=== PATIENT | male | born 1955 | race African-American/Black ===

== ENCOUNTER 2016-03-15 13:41 | Inpatient (IN) | payer OTHER ==
[2016-03-15 14:58] VITALS: BMI 26.3
--- NOTE | 2016-03-15 17:12 | HP ---
CIWA Score - CIWA Score Nausea/Vomitin Muscle Tremors: 3 Anxiety: 3 Agitation: 3 Paroxysmal Sweats: 1-Minimal Palms Moist Orientation: 0-Oriented Tacttile Disturbances: 2-Mild Itch/Numbness/Burn Auditory Disturbances: 2-Mild Harshness/Frighten Visual Disturbances: 2-Mild Sensitivity Headache: 2-Mild CIWA-Ar Total Score: 21 Admission ROS [facility] - HPI Chief Complaint: i need help to stop drinking alcohol Allergies/Adverse Reactions: Allergies Allergy/AdvReac Type Severity Reaction Status Date / Time No Known Allergies Allergy Verified 02/29/16 14:34 History of Present Illness: this 60 years old male with alcohol dependence,withdrawal symptom,last detox [facility] 01/11/16 to 01/15/16 nicotine dependence longest sobriety 10 years hypertension asthma hyperlipidemia seizure syncope positive ppd Exam Limitations: No Limitations - Ebola screening Have you traveled outside of the country in the last 21 days: No Have you had contact with anyone from an Ebola affected area: No Have you been sick,other than usual withdrawal symptoms: No Do you have a fever: No - Review of Systems Constitutional: Loss of Appetite, Malaise, Night Sweats, Changes in sleep, Weakness EENT: reports: Nose Congestion Respiratory: reports: No Symptoms reported Cardiac: reports: Palpitations GI: reports: Diarrhea, Nausea, Vomiting, Abdominal cramping : reports: No Symptoms Reported Musculoskeletal: reports: Back Pain, Muscle Pain Integumentary: reports: Dryness Neuro: reports: Headache, Tremors Endocrine: reports: No Symptoms Reported Hematology: reports: No Symptoms Reported Psychiatric: reports: No Sypmtoms Reported Patient History - Patient Medical History Hx Anemia: No Hx Asthma: No Hx Chronic Obstructive Pulmonary Disease (COPD): No Hx Cancer: No Hx Cardiac Disorders: No Hx Congestive Heart Failure: No Hx Hypertension: No Hx Hypercholesterolemia: No Hx Pacemaker: No HX Cerebrovascular Accident: No Hx Seizures: Yes (last 01/22) Hx Dementia: No Hx Diabetes: Yes (no medication) Hx Gastrointestinal Disorders: No Hx Liver Disease: No Hx Genitourinary Disorders: No Hx Sexually Transmitted Disorders: No Hx Renal Disease (ESRD): No Hx Thyroid Disease: No Hx Human Immunodeficiency Virus (HIV): No (never been tested for hiv) Hx Hepatitis C: No Hx Depression: No Hx Suicide Attempt: No Hx Bipolar Disorder: No Hx Schizophrenia: No Other Medical History: no suicidal,no homicidal - Patient Surgical History Past Surgical History: No Hx Neurologic Surgery: No Hx Cataract Extraction: No Hx Cardiac Surgery: No Hx Lung Surgery: No Hx Breast Surgery: No Hx Breast Biopsy: No Hx Abdominal Surgery: No Hx Appendectomy: No Hx Cholecystectomy: No Hx Genitourinary Surgery: No Hx Section: No Hx Orthopedic Surgery: No Anesthesia Reaction: No - PPD History Previous Implant?: Yes Documented Results: Negative w/o proof Implanted On Prior [facility] Admission?: No PPD to be Administered?: Yes - Smoking Cessation Smoking history: Current every day smoker Have you smoked in the past 12 months: Yes Aproximately how many cigarettes per day: 5 Hx Chewing Tobacco Use: No Initiated information on smoking cessation: Yes 'Breaking Loose' booklet given: 03/15/16 - Substance & Tx. History Hx Alcohol Use: Yes Hx Substance Use: No Substance Use Type: Alcohol Hx Substance Use Treatment: Yes ([facility] 01/11/16 to 01/14/15) - Substances Abused Alcohol Route: Oral Frequency: Daily Amount used: 1 pint of vodka Age of first use: 24 Date of Last Use: 03/15/16 Family Disease History - Family Disease History Family History: Denies Admission Physical Exam S - Vital Signs Vital Signs: Vital Signs - 24 hr 03/15/16 14:56 Temperature 97.7 F Pulse Rate 118 H Respiratory 18 Rate Blood Pressure 138/82 - Physical General Appearance: Yes: Moderate Distress, Tremorous, Irritable, Sweating, Anxious HEENTM: Yes: Rhinorrhea Respiratory: Yes: Lungs Clear Neck: Yes: Within Normal Limits Breast: Yes: Within Normal Limits Cardiology: Yes: Within Normal Limits, Regular Rhythm, Regular Rate, S1, S2 Abdominal: Yes: Normal Bowel Sounds, Non Tender, Flat, Soft Genitourinary: Yes: Within Normal Limits Back: Yes: Muscle Spasm Musculoskeletal: Yes: Muscle Pain Extremities: Yes: Tremors Neurological: Yes: health plan specialist II-XII NML intact, Alert, Motor Strength 5/5 Integumentary: Yes: Dry Lymphatic: Yes: Within Normal Limits - Diagnostic (1) Alcohol dependence with uncomplicated withdrawal Current Visit: No Status: Acute (2) Alcohol withdrawal seizure Current Visit: No Status: Acute Qualifiers: Complication of substance-induced condition: with unspecified complication Qualified Code(s): F10.239 - Alcohol dependence with withdrawal, unspecified; R56.9 - Unspecified convulsions (3) Hx of falling, presenting hazards to health Current Visit: No Status: Acute (4) Positive PPD, treated Current Visit: No Status: Acute (5) DM Diabetes mellitus type 2 Current Visit: No Status: Chronic (6) Essential hypertension Current Visit: No Status: Chronic (7) Hyperlipidemia Current Visit: No Status: Chronic Qualifiers: Hyperlipidemia type: unspecified Qualified Code(s): E78.5 - Hyperlipidemia, unspecified (8) Syncope Current Visit: No Status: Chronic (9) Weight loss Current Visit: No Status: Chronic Cleared for Admission S - Detox or Rehab [facility] Level of Care: Medically Managed Detox Regimen/Protocol: Librium S Breath Alcohol Content Breath Alcohol Content: 0.138 Urine Drug Screen - Results Drug Screen Negative: No Urine Drug Screen Results: BZO-Benzodiazepines, TCA-Tricyclic Antidepress
[2016-03-15] MEDS ORDERED: ACETAMINOPHEN 325 MG TABLET (FP) PO PRN (17:31)
[2016-03-15] MEDS ORDERED: MENTHOL/PHENOL 1 EACH UD MM PRN (17:31)
[2016-03-15] MEDS ORDERED: IBUPROFEN 400 MG TABLET (FP) PO PRN (17:31)
[2016-03-15] MEDS ORDERED: hydrOXYzine PAMOATE 25 MG CAPSULE (FP) PO PRN (17:31)
[2016-03-15] MEDS ORDERED: MAG HYDROX/AL HYDROX/SIMETH 30 ML UNIT-DOSE CUP PO PRN (17:31)
[2016-03-15] MEDS ORDERED: chlordiazePOXIDE HCL 25 MG CAPSULE PO ONE (17:31)
[2016-03-15] MEDS ORDERED: LOPERAMIDE HCL 2 MG CAPSULE PO PRN (17:31)
[2016-03-15] MEDS ORDERED: guaiFENesin/D-METHORPHAN HB 10 ML UNIT-DOSE CUPS PO PRN (17:31)
[2016-03-15] MEDS ORDERED: MAGNESIUM CITRATE 300 ML BOTTLE PO PRN (17:31)
[2016-03-15] MEDS ORDERED: P-EPHED 60MG/TRIPROLIDI 2.5MG TABLET PO PRN (17:31)
[2016-03-15] MEDS ORDERED: MAGNESIUM HYDROX 2400MG/30ML ORAL SUSPENSION 30 ML CUP PO PRN (17:31)
[2016-03-15] MEDS ORDERED: chlordiazePOXIDE HCL 25 MG CAPSULE PO PRN (17:31)
[2016-03-15] MEDS: diphenhydrAMINE HCL 50 MG CAPSULE PO PRN (22:31)
[2016-03-15] MEDS: THIAMINE HCL 100 MG TABLET (FP) PO SCH (22:31)
[2016-03-15] MEDS: chlordiazePOXIDE HCL 25 MG CAPSULE PO SCH (22:31)
[2016-03-16] MEDS: chlordiazePOXIDE HCL 25 MG CAPSULE PO SCH ×4 (05:30→22:11)
[2016-03-16] MEDS: PRENATAL VITAMINS W/ FOLIC ACID TABLET (FP) PO SCH (10:21)
[2016-03-16 10:27] LABS: MCH 34.4 pg (25.7-33.7); MCHC 34.3 g/dl (32.0-35.9); MEAN CELL VOLUME 100.4 fl (80-96); MEAN PLT VOLUME 7.9 fl (7.5-11.1); PLATELET COUNT 199 K/MM3 (134-434); RDW 15.5 % (11.9-15.9); WHITE BLOOD COUNT 3.3 K/mm3 (4.0-10.0)
[2016-03-16 10:47] LABS: ALBUMIN 3.6 g/dl (3.4-5.0); ANION GAP 8 (8-16); CALCIUM 8.8 mg/dL (8.5-10.1); CO2 30 mmol/L (21-32); GLUCOSE,RANDOM 108 mg/dL (74-106)
[2016-03-16 10:50] LABS: ALK PHOS 95 U/L (45-117); BILIRUBIN,TOTAL 0.8 mg/dL (0.2-1.0); CHOLESTEROL 178 mg/dL (50-200); CREATININE 0.8 mg/dL (0.7-1.3); LDL CHOLESTEROL (ONLY SJRH) 76 mg/dL (5-100); SGOT/AST 11 U/L (15-37); SGPT/ALT 17 U/L (12-78); TOT PROT 6.8 g/dl (6.4-8.2)
--- NOTE | 2016-03-16 13:21 | PN ---
S CIWA - CIWA Score Nausea/Vomitin-Mild Nausea/No Vomiting Muscle Tremors: 3 Anxiety: 4-Mod. Anxious/Guarded Agitation: 4-Moderately Restless Paroxysmal Sweats: No Perspiration Orientation: 0-Oriented Tacttile Disturbances: 1-Very Mild Itch/Numbness Auditory Disturbances: 0-None Visual Disturbances: 0-None Headache: 1-Very Mild CIWA-Ar Total Score: 14 BHS Progress Note (SOAP) Subjective: Anxiety, sweating, tremors, interrupted sleep, right sided pain x 1 month relieved with motrin (patient stated he was already evaluated in [facility] ER for said pain . Pain scale presently 6/10; he reports not drinking much water. Objective: 03/16/16 13:20 Last Vital Signs Temp Pulse Resp BP Pulse Ox 96 F L 114 H 20 127/85 03/16/16 10:49 03/16/16 10:49 03/16/16 10:49 03/16/16 10:49 Tachycardia noted Laboratory Tests 03/16/16 03/16/16 03/16/16 05:29 08:00 08:00 WBC 3.3 L RBC 4.71 Hgb 16.2 D Hct 47.3 MCV 100.4 H MCHC 34.3 RDW 15.5 D Plt Count 199 D MPV 7.9 Sodium 143 Potassium 3.7 D Chloride 105 Carbon Dioxide 30 Anion Gap 8 BUN 9 D Creatinine 0.8 D Creat Clearance w eGFR > 60 POC Glucometer 136 Random Glucose 108 H Calcium 8.8 Total Bilirubin 0.8 D AST 11 L D ALT 17 D Alkaline Phosphatase 95 Total Protein 6.8 D Albumin 3.6 Triglycerides 73 Cholesterol 178 Total LDL Cholesterol 76 HDL Cholesterol 92 H RPR Titer 03/16/16 03/16/16 08:00 08:00 WBC RBC Hgb Hct MCV MCHC RDW Plt Count MPV Sodium Potassium Chloride Carbon Dioxide Anion Gap BUN Creatinine Creat Clearance w eGFR POC Glucometer Random Glucose Calcium Total Bilirubin AST ALT Alkaline Phosphatase Total Protein Albumin Triglycerides Cancelled Cholesterol Cancelled Total LDL Cholesterol Cancelled HDL Cholesterol Cancelled RPR Titer Nonreactive Labs noted: serum glucose 108mg/dl PE:Resp: lungs ctab/l, no adventitious breath sounds CV: s1s2+, apical rate 104 bpm, no m/g/r Back: no CVAT B/L Skin: warm to touch, dry Gait: steady Assessment: 03/16/16 13:21 Withdrawal symptoms Tachycardia Right sided pain, acute Hyperglycemia Plan: Continue detox Tachycardia: most likely due to withdrawal Sxs and anxiety, encouraged to drink lots of water, continue protocol, continue to monitor Right sided pain: encouraged to take motrin prn, continue to monitor Hyperglycemia: HbA1c in AM, finger stick ac meal, change diet to diabetic if warranted, UA in AM, novolog insulin sliding scale with coverage
[2016-03-16] MEDS: INSULIN SLIDING SCALE (NOVOLOG) 1 VIAL SQ SCH (17:44)
[2016-03-16] MEDS: THIAMINE HCL 100 MG TABLET (FP) PO SCH (22:11)
[2016-03-16] MEDS: diphenhydrAMINE HCL 50 MG CAPSULE PO PRN (22:11)
[2016-03-17] MEDS: chlordiazePOXIDE HCL 25 MG CAPSULE PO SCH ×3 (05:33→16:56)
[2016-03-17] MEDS: INSULIN SLIDING SCALE (NOVOLOG) 1 VIAL SQ SCH ×3 (06:12→16:30)
[2016-03-17] MEDS: PRENATAL VITAMINS W/ FOLIC ACID TABLET (FP) PO SCH (10:14)
--- NOTE | 2016-03-17 11:31 | PN ---
[facility] CIWA - CIWA Score Nausea/Vomitin Muscle Tremors: 3 Anxiety: 3 Agitation: 2 Paroxysmal Sweats: 1-Minimal Palms Moist Orientation: 0-Oriented Tacttile Disturbances: 1-Very Mild Itch/Numbness Auditory Disturbances: 1-Very Mild Visual Disturbances: 1-Very Mild Sensitivity Headache: 2-Mild CIWA-Ar Total Score: 17 BHS Progress Note (SOAP) Subjective: ALERT,IRRITABLE,ANXIOUS,INTERRUPTED SLEEP Objective: 03/17/16 11:30 Vital Signs Temperature 97.2 F L 03/17/16 09:50 Pulse Rate 110 H 03/17/16 09:50 Respiratory Rate 19 03/17/16 09:50 Blood Pressure 116/81 03/17/16 09:50 O2 Sat by Pulse Oximetry (%) Laboratory Last Values WBC 3.3 K/mm3 (4.0-10.0) L 03/16/16 08:00 RBC 4.71 M/mm3 (4.00-5.60) 03/16/16 08:00 Hgb 16.2 GM/dL (11.7-16.9) D 03/16/16 08:00 Hct 47.3 % (35.4-49) 03/16/16 08:00 MCV 100.4 fl (80-96) H 03/16/16 08:00 MCHC 34.3 g/dl (32.0-35.9) 03/16/16 08:00 RDW 15.5 % (11.9-15.9) D 03/16/16 08:00 Plt Count 199 K/MM3 (134-434) D 03/16/16 08:00 MPV 7.9 fl (7.5-11.1) 03/16/16 08:00 Sodium 143 mmol/L (136-145) 03/16/16 08:00 Potassium 3.7 mmol/L (3.5-5.1) D 03/16/16 08:00 Chloride 105 mmol/L (98-107) 03/16/16 08:00 Carbon Dioxide 30 mmol/L (21-32) 03/16/16 08:00 Anion Gap 8 (8-16) 03/16/16 08:00 BUN 9 mg/dL (7-18) D 03/16/16 08:00 Creatinine 0.8 mg/dL (0.7-1.3) D 03/16/16 08:00 Creat Clearance w eGFR > 60 (>60) 03/16/16 08:00 POC Glucometer 138 UNITS (()) 03/17/16 05:32 Random Glucose 108 mg/dL (74-106) H 03/16/16 08:00 Hemoglobin A1c % 6.0 % (4.8-6.0) D 03/17/16 06:30 Calcium 8.8 mg/dL (8.5-10.1) 03/16/16 08:00 Total Bilirubin 0.8 mg/dL (0.2-1.0) D 03/16/16 08:00 AST 11 U/L (15-37) L D 03/16/16 08:00 ALT 17 U/L (12-78) D 03/16/16 08:00 Alkaline Phosphatase 95 U/L (45-117) 03/16/16 08:00 Total Protein 6.8 g/dl (6.4-8.2) D 03/16/16 08:00 Albumin 3.6 g/dl (3.4-5.0) 03/16/16 08:00 Triglycerides 73 mg/dL (35-160) 03/16/16 08:00 Cholesterol 178 mg/dL (50-200) 03/16/16 08:00 Total LDL Cholesterol 76 mg/dL (5-100) 03/16/16 08:00 HDL Cholesterol 92 mg/dL (40-60) H 03/16/16 08:00 RPR Titer Nonreactive (NONREACTIVE) 03/16/16 08:00 Assessment: 03/17/16 11:31 WITHDRAWAL SYMPTOM Plan: CONTINUE DETOX
[2016-03-17 16:33] LABS: URINE APPEARANCE SLCLOUDY; URINE BILIRUBIN NEGATIVE (NEGATIVE); URINE BLOOD NEGATIVE (NEGATIVE); URINE COLOR YELLOW; URINE GLUCOSE (UA) NEGATIVE (NEGATIVE); URINE KETONE NEGATIVE (NEGATIVE); URINE LEUK ESTERASE NEGATIVE (NEGATIVE); URINE NITRITE NEGATIVE (NEGATIVE); URINE PROTEIN NEGATIVE (NEGATIVE); URINE UROBILINOGEN NEGATIVE E.U./dl (0.2-1.0)
[2016-03-17] MEDS: diphenhydrAMINE HCL 50 MG CAPSULE PO PRN (22:02)
[2016-03-17] MEDS: chlordiazePOXIDE 5 MG CAPSULE PO SCH (22:02)
[2016-03-17] MEDS: THIAMINE HCL 100 MG TABLET (FP) PO SCH (22:02)
[2016-03-18] MEDS: chlordiazePOXIDE 5 MG CAPSULE PO SCH ×3 (05:34→17:31)
[2016-03-18] MEDS: INSULIN SLIDING SCALE (NOVOLOG) 1 VIAL SQ SCH ×3 (06:12→16:39)
--- NOTE | 2016-03-18 09:52 | PN ---
S Progress Note (SOAP) Subjective: ALERT,IRRITABLE,ANXIOUS,INTERRUPTED SLEEP Objective: 03/18/16 09:50 Vital Signs Temperature 95.8 F L 03/18/16 09:32 Pulse Rate 112 H 03/18/16 09:32 Respiratory Rate 18 03/18/16 09:32 Blood Pressure 105/73 03/18/16 09:32 O2 Sat by Pulse Oximetry (%) 03/18/16 09:51 BGM 146 Assessment: 03/18/16 09:51 WITHDRAWAL SYMPTOM Plan: CONTINUE DETOX,BGM MONITORING,DISCHARGE IN AM
[2016-03-18] MEDS: PRENATAL VITAMINS W/ FOLIC ACID TABLET (FP) PO SCH (10:35)
[2016-03-18] MEDS: THIAMINE HCL 100 MG TABLET (FP) PO SCH (22:10)
[2016-03-18] MEDS: diphenhydrAMINE HCL 50 MG CAPSULE PO PRN (22:10)
[2016-03-18] MEDS: chlordiazePOXIDE HCL 10 MG CAPSULE PO SCH (22:10)
[2016-03-19] MEDS: chlordiazePOXIDE HCL 10 MG CAPSULE PO SCH (05:28)
[2016-03-19 06:27] VITALS: BP 105/74; PULSE 92; TEMP 97
[2016-03-19] MEDS: INSULIN SLIDING SCALE (NOVOLOG) 1 VIAL SQ SCH (06:37)
--- NOTE | 2016-03-19 08:12 | PN ---
S Progress Note (SOAP) Subjective: alert,no complaint Objective: 03/19/16 08:10 detox completed,no withdrawal symptom 03/19/16 08:11 Assessment: 03/19/16 08:11 Vital Signs Temperature 97 F L 03/19/16 06:26 Pulse Rate 92 H 03/19/16 06:26 Respiratory Rate 16 03/19/16 06:26 Blood Pressure 105/74 03/19/16 06:26 O2 Sat by Pulse Oximetry (%) Plan: discharge today,follow up with after care program as arrangement
--- NOTE | 2016-03-19 08:16 | DS ---
[facility] Detox Discharge Summary Admission Date: 03/15/16 Discharge Date: 03/26/16 - History Present History: Alcohol Dependence Additional Comments: follow up with after [facility] program as arrangement and pmd for medical problems Pertinent Past History: type 2 dm essential hypertension hyperlipedemia seizure alcohol related syncope positive ppd weight loss frequent falls - Physical Exam Results Vital Signs: Vital Signs Temperature 97 F L 03/19/16 06:26 Pulse Rate 92 H 03/19/16 06:26 Respiratory Rate 16 03/19/16 06:26 Blood Pressure 105/74 03/19/16 06:26 O2 Sat by Pulse Oximetry (%) Pertinent Admission Physical Exam Findings: withdrawal symptom - Treatment Hospital Course: Detox Protocol Followed, Detoxed Safely, Discharged Condition Good Patient has Accepted a Rehab Referral to: [facility] - Medication Discharge Medications: Ambulatory Orders NK [No Known Home Medication] 01/11/16 - Diagnosis (1) Alcohol dependence with uncomplicated withdrawal Current Visit: No Status: Acute (2) Alcohol withdrawal seizure Current Visit: No Status: Acute Qualifiers: Complication of substance-induced condition: with unspecified complication Qualified Code(s): F10.239 - Alcohol dependence with withdrawal, unspecified; R56.9 - Unspecified convulsions (3) Hx of falling, presenting hazards to health Current Visit: No Status: Acute (4) Positive PPD, treated Current Visit: No Status: Acute (5) DM Diabetes mellitus type 2 Current Visit: No Status: Chronic (6) Essential hypertension Current Visit: No Status: Chronic (7) Hyperlipidemia Current Visit: No Status: Chronic Qualifiers: Hyperlipidemia type: unspecified Qualified Code(s): E78.5 - Hyperlipidemia, unspecified (8) Syncope Current Visit: No Status: Chronic (9) Weight loss Current Visit: No Status: Chronic - AMA Did Patient Leave Against Medical Advice: No
--- NOTE | 2016-03-19 09:45 | EKG ---
Test Reason : Blood Pressure : / mmHG Vent. Rate : 098 BPM Atrial Rate : 098 BPM P-R Int : 136 ms QRS Dur : 080 ms QT Int : 336 ms P-R-T Axes : 074 087 078 degrees QTc Int : 428 ms NORMAL SINUS RHYTHM POSSIBLE LEFT ATRIAL ENLARGEMENT BORDERLINE ECG WHEN COMPARED WITH ECG OF 01-MAR-2016 09:56, NO SIGNIFICANT CHANGE WAS FOUND Confirmed by NEPTALI HOFF MD ([id number]) on 03/19/2016 9:45:07 AM Referred By: Confirmed By:NEPTALI HOFF MD
== END 2016-03-19 08:55 | disposition home or self-care (01) | DRG 775 ==
LOC: YASAS 13:41 → Y3N 17:19
PROVIDERS: ADMIT Internal Medicine; ATTEND Internal Medicine
PROC: HZ2ZZZZ Detoxification Services for Substance Abuse Treatment (ICD-10-PCS; principal; 2016-03-15)
DX: F10.230 Alcohol dependence with withdrawal, uncomplicated (principal); F17.210 Nicotine dependence, cigarettes, uncomplicated; E11.65 Type 2 diabetes mellitus with hyperglycemia; I10 Essential (primary) hypertension; J45.909 Unspecified asthma, uncomplicated; E78.5 Hyperlipidemia, unspecified; R00.0 Tachycardia, unspecified; R76.11 Nonspecific reaction to tuberculin skin test without active tuberculosis; Z91.81 History of falling; Z86.79 Personal history of other diseases of the circulatory system; Z87.898 Personal history of other specified conditions; Z86.69 Personal history of other diseases of the nervous system and sense organs
CPT/HCPCS: 36415; 80053; 80061; 81003; 83036; 83721; 85027; 86593; 93005; 93010

== ENCOUNTER 2016-07-21 13:26 | Inpatient (IN) | payer OTHER ==
[2016-07-21 16:42] VITALS: BMI 26.4
--- NOTE | 2016-07-21 17:06 | HP ---
CIWA Score - CIWA Score Nausea/Vomitin-No Nausea/No Vomiting Muscle Tremors: 4-Moderate,w/Arms Extend Anxiety: 4-Mod. Anxious/Guarded Agitation: 4-Moderately Restless Paroxysmal Sweats: 1-Minimal Palms Moist Orientation: 3-Disoriented Date>2 days Tacttile Disturbances: 0-None Auditory Disturbances: 0-None Visual Disturbances: 0-None Headache: 1-Very Mild CIWA-Ar Total Score: 17 Admission [facility] - HPI Chief Complaint: WITHDRAWAL SX Allergies/Adverse Reactions: Allergies Allergy/AdvReac Type Severity Reaction Status Date / Time No Known Allergies Allergy Verified 07/21/16 17:07 History of Present Illness: 60 YEARS OLD MALE WITH LONG HISTORY OF ALCOHOL NICOTINE DEPENDENCE HAS POSITIVE PPD, DENIES HISTORY OF HYPERTENSION, DENIES HISTORY OF DIABETES II, DENIES HISTORY OF HYPERLIPIDEMIA, DENIES PSYCHIATRIC ISSUE, HAS ALCOHOL WITHDRAWAL RELATED SEIZURE LAST EPISODE 02/2016 IS ADMITTED TO DETOX Exam Limitations: No Limitations - Ebola screening Have you traveled outside of the country in the last 21 days: No Have you had contact with anyone from an Ebola affected area: No Have you been sick,other than usual withdrawal symptoms: No Do you have a fever: No - Review of Systems Constitutional: Chills, Changes in sleep, Weight Stable EENT: reports: Other (EYE GLASSES) Respiratory: reports: No Symptoms reported Cardiac: reports: No Symptoms Reported GI: reports: Nausea, Poor Fluid Intake, Abdominal cramping : reports: No Symptoms Reported Musculoskeletal: reports: No Symptoms Reported Integumentary: reports: No Symptoms Reported Neuro: reports: Seizure (ALCOHOL WITHDRAWAL RELATED), Tremors Endocrine: reports: No Symptoms Reported Hematology: reports: No Symptoms Reported Psychiatric: reports: Judgement Intact, Mood/Affect Appropiate Other Systems: Reviewed and Negative Patient History - Patient Medical History Hx Anemia: No Hx Asthma: No Hx Chronic Obstructive Pulmonary Disease (COPD): No Hx Cancer: No Hx Cardiac Disorders: No Hx Congestive Heart Failure: No Hx Hypertension: No (DENIES HISTORY OF HYPERTENSION) Hx Hypercholesterolemia: No (DENIES HISTORY OF HYPERLIPIDEMIA) Hx Pacemaker: No HX Cerebrovascular Accident: No Hx Seizures: Yes (last 01/22) Hx Dementia: No Hx Diabetes: No (no medication DENIES HAVING DIABETES ) Hx Gastrointestinal Disorders: No Hx Liver Disease: No Hx Genitourinary Disorders: No Hx Sexually Transmitted Disorders: No Hx Renal Disease (ESRD): No Hx Thyroid Disease: No Hx Human Immunodeficiency Virus (HIV): No (never been tested for hiv) Hx Hepatitis C: No Hx Depression: No Hx Suicide Attempt: No Hx Bipolar Disorder: No Hx Schizophrenia: No - Patient Surgical History Past Surgical History: No Hx Neurologic Surgery: No Hx Cataract Extraction: No Hx Cardiac Surgery: No Hx Lung Surgery: No Hx Breast Surgery: No Hx Breast Biopsy: No Hx Abdominal Surgery: No Hx Appendectomy: No Hx Cholecystectomy: No Hx Genitourinary Surgery: No Hx Orthopedic Surgery: No Anesthesia Reaction: No - PPD History Previous Implant?: Yes Documented Results: Positive w/proof Implanted On Prior R Admission?: No PPD to be Administered?: No - Smoking Cessation Smoking history: Current every day smoker Have you smoked in the past 12 months: Yes Aproximately how many cigarettes per day: 5 Cigars Per Day: 0 Hx Chewing Tobacco Use: No Initiated information on smoking cessation: Yes 'Breaking Loose' booklet given: 07/21/16 - Substance & Tx. History Hx Alcohol Use: Yes Hx Substance Use: No Substance Use Type: Alcohol Hx Substance Use Treatment: Yes - Substances Abused Alcohol-vodka Route: Oral Frequency: Daily Amount used: 1 pt. Age of first use: 24 Date of Last Use: 07/21/16 Family Disease History - Family Disease History Family Disease History: Other: Father (), Mother () Other Family History: ONLY CHILD Admission Physical Exam BHS - Vital Signs Vital Signs: Vital Signs - 24 hr 07/21/16 16:39 Temperature 98.7 F Pulse Rate 118 H Respiratory 18 Rate Blood Pressure 152/74 - Physical General Appearance: Yes: Nourished, Appropriately Dressed, Moderate Distress, Tremorous, Irritable, Sweating, Anxious HEENTM: Yes: Hearing grossly Normal, Normal ENT Inspection, Normocephalic, Normal Voice Respiratory: Yes: Chest Non-Tender, Lungs Clear, Normal Breath Sounds, No Respiratory Distress, No Accessory Muscle Use Neck: Yes: Supple, Trachea in good position Breast: Yes: Breasts Symetrical Cardiology: Yes: Regular Rhythm, S1, S2, Tachycardia Abdominal: Yes: Non Tender, Soft Genitourinary: Yes: Within Normal Limits Back: Yes: Normal Inspection Musculoskeletal: Yes: full range of Motion, Gait Steady Extremities: Yes: Normal Inspection, Normal Range of Motion, Non-Tender, Tremors Neurological: Yes: Alert, Motor Strength 5/5, Normal Mood/Affect, Normal Response Integumentary: Yes: Warm Lymphatic: Yes: Within Normal Limits - Diagnostic (1) Alcohol dependence with uncomplicated withdrawal Current Visit: Yes Status: Acute (2) Positive PPD, treated Current Visit: Yes Status: Resolved Cleared for Admission [facility] - Detox or Rehab [facility] Level of Care: Medically Managed Detox Regimen/Protocol: Librium S Breath Alcohol Content Breath Alcohol Content: 0.108 Urine Drug Screen - Results Drug Screen Negative: Yes
[2016-07-21] MEDS ORDERED: LOPERAMIDE HCL 2 MG CAPSULE PO PRN (17:21)
[2016-07-21] MEDS ORDERED: chlordiazePOXIDE HCL 25 MG CAPSULE PO PRN (17:21)
[2016-07-21] MEDS ORDERED: NICOTINE POLACRILEX 2 MG GUM BUC PRN (17:21)
[2016-07-21] MEDS ORDERED: hydrOXYzine PAMOATE 50 MG CAPSULE (FP) PO PRN (17:21)
[2016-07-21] MEDS ORDERED: guaiFENesin/D-METHORPHAN HB 10 ML UNIT-DOSE CUPS PO PRN (17:21)
[2016-07-21] MEDS ORDERED: MAG HYDROX/AL HYDROX/SIMETH 30 ML UNIT-DOSE CUP PO PRN (17:21)
[2016-07-21] MEDS ORDERED: IBUPROFEN 400 MG TABLET (FP) PO PRN (17:21)
[2016-07-21] MEDS ORDERED: ACETAMINOPHEN 325 MG TABLET (FP) PO PRN (17:21)
[2016-07-21] MEDS ORDERED: P-EPHED 60MG/TRIPROLIDI 2.5MG TABLET PO PRN (17:21)
[2016-07-21] MEDS ORDERED: MAGNESIUM CITRATE 300 ML BOTTLE PO PRN (17:21)
[2016-07-21] MEDS ORDERED: MENTHOL/PHENOL 1 EACH UD MM PRN (17:21)
[2016-07-21] MEDS ORDERED: MAGNESIUM HYDROX 2400MG/30ML ORAL SUSPENSION 30 ML CUP PO PRN (17:21)
[2016-07-21] MEDS ORDERED: cloNIDine HCL 0.1 MG TABLET PO PRN (17:42)
[2016-07-21] MEDS ORDERED: METOPROLOL TARTRATE 25 MG TABLET (FP) PO ONE (19:30)
[2016-07-21] MEDS ORDERED: chlordiazePOXIDE HCL 25 MG CAPSULE PO ONE (19:30)
[2016-07-21 20:37] LABS: URINE APPEARANCE CLEAR; URINE BILIRUBIN NEGATIVE (NEGATIVE); URINE BLOOD NEGATIVE (NEGATIVE); URINE COLOR YELLOW; URINE GLUCOSE (UA) NEGATIVE (NEGATIVE); URINE KETONE TRACE (NEGATIVE); URINE LEUK ESTERASE NEGATIVE (NEGATIVE); URINE NITRITE NEGATIVE (NEGATIVE); URINE UROBILINOGEN NEGATIVE E.U./dl (0.2-1.0)
[2016-07-21 20:41] LABS: URINE PROTEIN 1+ (NEGATIVE)
[2016-07-21 20:45] LABS: URINE MUCUS RARE; URINE RBC <1 /hpf (0-3); URINE WBC <1 /hpf (3-5)
[2016-07-21] MEDS ORDERED: diphenhydrAMINE HCL 50 MG CAPSULE PO PRN (22:00)
[2016-07-21] MEDS: chlordiazePOXIDE HCL 25 MG CAPSULE PO SCH (22:45)
[2016-07-21] MEDS: THIAMINE HCL 100 MG TABLET (FP) PO SCH (22:46)
[2016-07-22] MEDS: chlordiazePOXIDE HCL 25 MG CAPSULE PO SCH ×4 (06:04→22:40)
[2016-07-22 10:35] LABS: MCH 33.3 pg (25.7-33.7); MCHC 34.2 g/dl (32.0-35.9); MEAN CELL VOLUME 97.4 fl (80-96); MEAN PLT VOLUME 8.8 fl (7.5-11.1); PLATELET COUNT 185 K/MM3 (134-434); RDW 13.8 % (11.9-15.9); WHITE BLOOD COUNT 3.8 K/mm3 (4.0-10.0)
[2016-07-22] MEDS: PRENATAL VITAMINS W/ FOLIC ACID TABLET (FP) PO SCH (10:41)
[2016-07-22] MEDS: NICOTINE 14 MG/24 HOURS TOPICAL PATCH TD SCH (10:42)
[2016-07-22 10:53] LABS: ALBUMIN 3.8 g/dl (3.4-5.0); ANION GAP 15 (8-16); CALCIUM 8.2 mg/dL (8.5-10.1); CO2 22 mmol/L (21-32); GLUCOSE,RANDOM 174 mg/dL (74-106)
[2016-07-22 10:56] LABS: ALK PHOS 77 U/L (45-117); BILIRUBIN,TOTAL 0.5 mg/dL (0.2-1.0); COCKROFT - GAULT 96.22; CREATININE 0.9 mg/dL (0.7-1.3); SGOT/AST 24 U/L (15-37); SGPT/ALT 36 U/L (12-78); TOT PROT 7.2 g/dl (6.4-8.2)
--- NOTE | 2016-07-22 11:04 | PN ---
[facility] CIWA - CIWA Score Nausea/Vomitin Muscle Tremors: 3 Anxiety: 3 Agitation: 2 Paroxysmal Sweats: 1-Minimal Palms Moist Orientation: 0-Oriented Tacttile Disturbances: 1-Very Mild Itch/Numbness Auditory Disturbances: 1-Very Mild Visual Disturbances: 1-Very Mild Sensitivity Headache: 2-Mild CIWA-Ar Total Score: 17 BHS Progress Note (SOAP) Subjective: ALERT,IRRITABLE,ANXIOUS,INTERRUPTED SLEEP,TREMOR Objective: 07/22/16 10:59 Vital Signs Temperature 98.2 F 07/22/16 09:40 Pulse Rate 79 07/22/16 09:40 Respiratory Rate 16 07/22/16 09:40 Blood Pressure 135/79 07/22/16 09:40 O2 Sat by Pulse Oximetry (%) 07/22/16 11:01 07/22/16 11:12 EKG SINUS TACHYCARDIA `112/MIN NO CHEST PAIN,NO SOB,NO DIZZINESS Laboratory Last Values WBC 3.8 K/mm3 (4.0-10.0) L 07/22/16 06:00 RBC 5.02 M/mm3 (4.00-5.60) 07/22/16 06:00 Hgb 16.7 GM/dL (11.7-16.9) 07/22/16 06:00 Hct 48.9 % (35.4-49) 07/22/16 06:00 MCV 97.4 fl (80-96) H 07/22/16 06:00 MCHC 34.2 g/dl (32.0-35.9) 07/22/16 06:00 RDW 13.8 % (11.9-15.9) D 07/22/16 06:00 Plt Count 185 K/MM3 (134-434) 07/22/16 06:00 MPV 8.8 fl (7.5-11.1) D 07/22/16 06:00 Sodium 141 mmol/L (136-145) 07/22/16 06:00 Potassium 3.7 mmol/L (3.5-5.1) 07/22/16 06:00 Chloride 104 mmol/L (98-107) 07/22/16 06:00 Carbon Dioxide 22 mmol/L (21-32) D 07/22/16 06:00 Anion Gap 15 (8-16) 07/22/16 06:00 BUN 13 mg/dL (7-18) D 07/22/16 06:00 Creatinine 0.9 mg/dL (0.7-1.3) 07/22/16 06:00 Creat Clearance w eGFR > 60 (>60) 07/22/16 06:00 Random Glucose 174 mg/dL (74-106) H D 07/22/16 06:00 Calcium 8.2 mg/dL (8.5-10.1) L 07/22/16 06:00 Total Bilirubin 0.5 mg/dL (0.2-1.0) D 07/22/16 06:00 AST 24 U/L (15-37) D 07/22/16 06:00 ALT 36 U/L (12-78) D 07/22/16 06:00 Alkaline Phosphatase 77 U/L (45-117) 07/22/16 06:00 Total Protein 7.2 g/dl (6.4-8.2) 07/22/16 06:00 Albumin 3.8 g/dl (3.4-5.0) 07/22/16 06:00 Urine Color Yellow 07/21/16 20:07 Urine Appearance Clear 07/21/16 20:07 Urine pH 5.0 (5.0-8.0) D 07/21/16 20:07 Ur Specific [place] 1.025 (1.005-1.025) 07/21/16 20:07 Urine Protein 1+ (NEGATIVE) H 07/21/16 20:07 Urine Glucose (UA) Negative (NEGATIVE) 07/21/16 20:07 Urine Ketones Trace (NEGATIVE) H 07/21/16 20:07 Urine Blood Negative (NEGATIVE) 07/21/16 20:07 Urine Nitrite Negative (NEGATIVE) 07/21/16 20:07 Urine Bilirubin Negative (NEGATIVE) 07/21/16 20:07 Urine Urobilinogen Negative E.U./dl (0.2-1.0) 07/21/16 20:07 Ur Leukocyte Esterase Negative (NEGATIVE) 07/21/16 20:07 Urine RBC <1 /hpf (0-3) 07/21/16 20:07 Urine WBC <1 /hpf (3-5) 07/21/16 20:07 Ur Epithelial Cells Rare /hpf (FEW) 07/21/16 20:07 Urine Mucus Rare 07/21/16 20:07 Assessment: 07/22/16 11:13 WITHDRAWAL SYMPTOM Plan: CONTINUE DETOX
--- NOTE | 2016-07-22 17:20 | EKG ---
Test Reason : Blood Pressure : / mmHG Vent. Rate : 112 BPM Atrial Rate : 112 BPM P-R Int : 146 ms QRS Dur : 088 ms QT Int : 330 ms P-R-T Axes : 082 087 059 degrees QTc Int : 450 ms SINUS TACHYCARDIA POSSIBLE LEFT ATRIAL ENLARGEMENT ANTERIOR INFARCT , AGE UNDETERMINED ABNORMAL ECG WHEN COMPARED WITH ECG OF 15-MAR-2016 19:57, NO SIGNIFICANT CHANGE WAS FOUND Confirmed by SOPHIE VENEGAS MD ([id number]) on 07/22/2016 5:20:39 PM Referred By: Confirmed By:SOPHIE VENEGAS MD
[2016-07-22] MEDS: THIAMINE HCL 100 MG TABLET (FP) PO SCH (22:40)
[2016-07-23] MEDS: chlordiazePOXIDE HCL 25 MG CAPSULE PO SCH ×3 (05:22→17:51)
[2016-07-23] MEDS: NICOTINE 14 MG/24 HOURS TOPICAL PATCH TD SCH (10:23)
[2016-07-23] MEDS: PRENATAL VITAMINS W/ FOLIC ACID TABLET (FP) PO SCH (10:23)
--- NOTE | 2016-07-23 11:13 | PN ---
S CIWA - CIWA Score Nausea/Vomitin-No Nausea/No Vomiting Muscle Tremors: 4-Moderate,w/Arms Extend Anxiety: 3 Agitation: 4-Moderately Restless Paroxysmal Sweats: 3 Orientation: 0-Oriented Tacttile Disturbances: 0-None Auditory Disturbances: 0-None Visual Disturbances: 0-None Headache: 1-Very Mild CIWA-Ar Total Score: 15 BHS Progress Note (SOAP) Subjective: sweats shakes hot/cold chills interrupted sleep agitation Objective: 07/23/16 11:12 Vital Signs Temperature 97.9 F 07/23/16 09:38 Pulse Rate 122 H 07/23/16 09:38 Respiratory Rate 16 07/23/16 09:38 Blood Pressure 129/87 07/23/16 09:38 O2 Sat by Pulse Oximetry (%) Laboratory Tests 07/21/16 07/22/16 07/22/16 20:07 06:00 06:00 WBC 3.8 L RBC 5.02 Hgb 16.7 Hct 48.9 MCV 97.4 H MCHC 34.2 RDW 13.8 D Plt Count 185 MPV 8.8 D Sodium 141 Potassium 3.7 Chloride 104 Carbon Dioxide 22 D Anion Gap 15 BUN 13 D Creatinine 0.9 Creat Clearance w eGFR > 60 Random Glucose 174 H D Calcium 8.2 L Total Bilirubin 0.5 D AST 24 D ALT 36 D Alkaline Phosphatase 77 Total Protein 7.2 Albumin 3.8 Urine Color Yellow Urine Appearance Clear Urine pH 5.0 D Ur Specific [place] 1.025 Urine Protein 1+ H Urine Glucose (UA) Negative Urine Ketones Trace H Urine Blood Negative Urine Nitrite Negative Urine Bilirubin Negative Urine Urobilinogen Negative Ur Leukocyte Esterase Negative Urine RBC <1 Urine WBC <1 Ur Epithelial Cells Rare Urine Mucus Rare RPR Titer 07/22/16 06:00 WBC RBC Hgb Hct MCV MCHC RDW Plt Count MPV Sodium Potassium Chloride Carbon Dioxide Anion Gap BUN Creatinine Creat Clearance w eGFR Random Glucose Calcium Total Bilirubin AST ALT Alkaline Phosphatase Total Protein Albumin Urine Color Urine Appearance Urine pH Ur Specific [place] Urine Protein Urine Glucose (UA) Urine Ketones Urine Blood Urine Nitrite Urine Bilirubin Urine Urobilinogen Ur Leukocyte Esterase Urine RBC Urine WBC Ur Epithelial Cells Urine Mucus RPR Titer Nonreactive awake/alert ambulating no acute distress Assessment: 07/23/16 11:12 withdrawal sx Plan: continue detox increase fluids
[2016-07-23] MEDS: THIAMINE HCL 100 MG TABLET (FP) PO SCH (22:25)
[2016-07-23] MEDS: chlordiazePOXIDE 5 MG CAPSULE PO SCH (22:25)
[2016-07-24] MEDS: chlordiazePOXIDE 5 MG CAPSULE PO SCH ×3 (05:26→17:27)
[2016-07-24] MEDS: PRENATAL VITAMINS W/ FOLIC ACID TABLET (FP) PO SCH (10:38)
[2016-07-24] MEDS: NICOTINE 14 MG/24 HOURS TOPICAL PATCH TD SCH ×2 (10:39→12:42)
--- NOTE | 2016-07-24 10:40 | PN ---
B[facility] Progress Note (SOAP) Subjective: ALERT,IRRITABLE,INTERRUPTED SLEEP Objective: 07/24/16 10:39 Vital Signs Temperature 99.1 F 07/24/16 09:23 Pulse Rate 104 H 07/24/16 09:23 Respiratory Rate 18 07/24/16 09:23 Blood Pressure 128/86 07/24/16 09:23 O2 Sat by Pulse Oximetry (%) Assessment: 07/24/16 10:40 WITHDRAWAL SYMPTOM Plan: DISCHARGE IN AM
[2016-07-24] MEDS ORDERED: NICOTINE 21 MG/24 HOURS TOPICAL PATCH TD SCH (16:45)
[2016-07-24] MEDS: chlordiazePOXIDE HCL 10 MG CAPSULE PO SCH (22:38)
[2016-07-24] MEDS: THIAMINE HCL 100 MG TABLET (FP) PO SCH (22:38)
[2016-07-25] MEDS: chlordiazePOXIDE HCL 10 MG CAPSULE PO SCH (05:34)
[2016-07-25 06:40] VITALS: TEMP 98.1
--- NOTE | 2016-07-25 08:02 | PN ---
S Progress Note (SOAP) Subjective: ALERT,NO COMPLAINT Objective: 07/25/16 08:01 Vital Signs Temperature 98.1 F 07/25/16 06:00 Pulse Rate 98 H 07/25/16 06:00 Respiratory Rate 18 07/25/16 06:00 Blood Pressure 142/87 07/25/16 06:00 O2 Sat by Pulse Oximetry (%) Assessment: 07/25/16 08:01 DETOX COMPLETED,NO WITHDRAWAL SYMPTOM Plan: DISCHARGE TODAY,FOLLOW UP WITH AFTER CARE PROGRAM ARRANGEMENT
--- NOTE | 2016-07-25 08:04 | DS ---
[facility] Detox Discharge Summary Admission Date: 07/21/16 Discharge Date: 07/25/16 - History Present History: Alcohol Dependence Additional Comments: FOLLOW UP WITH AFTER CARE PROGRAM ARRANGEMENT - Physical Exam Results Vital Signs: Vital Signs Temperature 98.1 F 07/25/16 06:00 Pulse Rate 98 H 07/25/16 06:00 Respiratory Rate 18 07/25/16 06:00 Blood Pressure 142/87 07/25/16 06:00 O2 Sat by Pulse Oximetry (%) Pertinent Admission Physical Exam Findings: WITHDRAWAL SYMPTOM - Treatment Hospital Course: Detox Protocol Followed, Detoxed Safely, Responded well, Discharged Condition Good Patient has Accepted a Rehab Referral to: DECLINED - Medication Discharge Medications: Ambulatory Orders NK [No Known Home Medication] 01/11/16 - AMA Did Patient Leave Against Medical Advice: No
[2016-07-25 10:23] VITALS: BP 120/71; PULSE 114
== END 2016-07-25 10:10 | disposition home or self-care (01) | DRG 775 ==
LOC: YASAS 13:26 → Y6N 18:38
PROVIDERS: ADMIT Internal Medicine Addiction Medicine; ATTEND Internal Medicine Addiction Medicine
PROC: HZ2ZZZZ Detoxification Services for Substance Abuse Treatment (ICD-10-PCS; principal; 2016-07-25)
DX: F10.230 Alcohol dependence with withdrawal, uncomplicated (principal); F17.210 Nicotine dependence, cigarettes, uncomplicated; G40.509 Epileptic seizures related to external causes, not intractable, without status epilepticus; R76.11 Nonspecific reaction to tuberculin skin test without active tuberculosis
CPT/HCPCS: 36415; 80053; 81003; 81015; 85027; 86593; 93005; 93010

== ENCOUNTER 2016-08-19 11:17 | Inpatient (IN) | payer OTHER ==
[2016-08-19 13:51] VITALS: BMI 25.8
[2016-08-19] MEDS ORDERED: P-EPHED 60MG/TRIPROLIDI 2.5MG TABLET PO PRN (17:48)
[2016-08-19] MEDS ORDERED: hydrOXYzine PAMOATE 50 MG CAPSULE (FP) PO PRN (17:48)
[2016-08-19] MEDS ORDERED: MENTHOL/PHENOL 1 EACH UD MM PRN (17:48)
[2016-08-19] MEDS ORDERED: ACETAMINOPHEN 325 MG TABLET (FP) PO PRN (17:48)
[2016-08-19] MEDS ORDERED: chlordiazePOXIDE HCL 25 MG CAPSULE PO PRN (17:48)
[2016-08-19] MEDS ORDERED: IBUPROFEN 400 MG TABLET (FP) PO PRN (17:48)
[2016-08-19] MEDS ORDERED: MAGNESIUM HYDROX 2400MG/30ML ORAL SUSPENSION 30 ML CUP PO PRN (17:48)
[2016-08-19] MEDS ORDERED: MAG HYDROX/AL HYDROX/SIMETH 30 ML UNIT-DOSE CUP PO PRN (17:48)
[2016-08-19] MEDS ORDERED: MAGNESIUM CITRATE 300 ML BOTTLE PO PRN (17:48)
[2016-08-19] MEDS ORDERED: LOPERAMIDE HCL 2 MG CAPSULE PO PRN (17:48)
[2016-08-19] MEDS ORDERED: NICOTINE POLACRILEX 2 MG GUM BC PRN (17:48)
--- NOTE | 2016-08-19 17:48 | HP ---
CIWA Score - CIWA Score Nausea/Vomitin-Mild Nausea/No Vomiting Muscle Tremors: 4-Moderate,w/Arms Extend Anxiety: 4-Mod. Anxious/Guarded Agitation: 4-Moderately Restless Paroxysmal Sweats: 1-Minimal Palms Moist Orientation: 3-Disoriented Date>2 days Tacttile Disturbances: 0-None Auditory Disturbances: 0-None Visual Disturbances: 0-None Headache: 0-None Present CIWA-Ar Total Score: 17 Admission ROS S - HPI Chief Complaint: withdrawal sx Allergies/Adverse Reactions: Allergies Allergy/AdvReac Type Severity Reaction Status Date / Time No Known Allergies Allergy Verified 08/19/16 16:51 History of Present Illness: 60 years old male with long history of alcohol nicotine dependence has positive ppd and alcohol withdrawal related seizure last episode 07/2016, denies mental illness is admitted to detox Exam Limitations: No Limitations - Ebola screening Have you traveled outside of the country in the last 21 days: No Have you had contact with anyone from an Ebola affected area: No Have you been sick,other than usual withdrawal symptoms: No Do you have a fever: No - Review of Systems Constitutional: Chills, Changes in sleep, Weight Stable EENT: reports: Other (eye glasses) Respiratory: reports: No Symptoms reported Cardiac: reports: No Symptoms Reported GI: reports: Nausea, Poor Fluid Intake, Abdominal cramping : reports: No Symptoms Reported Musculoskeletal: reports: No Symptoms Reported Integumentary: reports: No Symptoms Reported Neuro: reports: Seizure (07/2016 alcohol related), Tremors Endocrine: reports: No Symptoms Reported Hematology: reports: No Symptoms Reported Psychiatric: reports: Judgement Intact, Mood/Affect Appropiate Other Systems: Reviewed and Negative Patient History - Patient Medical History Hx Anemia: No Hx Asthma: No Hx Chronic Obstructive Pulmonary Disease (COPD): No Hx Cancer: No Hx Cardiac Disorders: No Hx Congestive Heart Failure: No Hx Hypertension: No Hx Hypercholesterolemia: No (DENIES HISTORY OF HYPERLIPIDEMIA) Hx Pacemaker: No HX Cerebrovascular Accident: No Hx Seizures: Yes (alcohol related-last episode was in 02/2016) Hx Dementia: No Hx Diabetes: No Hx Gastrointestinal Disorders: No Hx Liver Disease: No Hx Genitourinary Disorders: No Hx Sexually Transmitted Disorders: No Hx Renal Disease (ESRD): No Hx Thyroid Disease: No Hx Human Immunodeficiency Virus (HIV): No (never been tested for hiv) Hx Hepatitis C: No Hx Depression: No Hx Suicide Attempt: No Hx Bipolar Disorder: No Hx Schizophrenia: No - Patient Surgical History Past Surgical History: No Hx Neurologic Surgery: No Hx Cataract Extraction: No Hx Cardiac Surgery: No Hx Lung Surgery: No Hx Breast Surgery: No Hx Breast Biopsy: No Hx Abdominal Surgery: No Hx Appendectomy: No Hx Cholecystectomy: No Hx Genitourinary Surgery: No Hx Orthopedic Surgery: No - PPD History Previous Implant?: Yes Documented Results: Positive w/o proof Implanted On Prior [facility] Admission?: No Results: cxray(-)02/2016 PPD to be Administered?: No - Smoking Cessation Smoking history: Current every day smoker Have you smoked in the past 12 months: Yes Aproximately how many cigarettes per day: 5 Cigars Per Day: 0 Hx Chewing Tobacco Use: No Initiated information on smoking cessation: Yes 'Breaking Loose' booklet given: 08/19/16 - Substance & Tx. History Hx Alcohol Use: Yes Hx Substance Use: No Substance Use Type: Alcohol Hx Substance Use Treatment: Yes (07/21/16-07/25/16 [place]) - Substances Abused Alcohol-vodka Route: Oral Frequency: Daily Amount used: 1 pt. volka Age of first use: 24 Date of Last Use: 08/18/16 Family Disease History - Family Disease History Family Disease History: Other: Father (), Mother () Admission Physical Exam BHS - Vital Signs Vital Signs: Vital Signs - 24 hr 08/19/16 13:49 Temperature 97.8 F Pulse Rate 120 H Respiratory 18 Rate Blood Pressure 130/83 - Physical General Appearance: Yes: Nourished, Appropriately Dressed, Moderate Distress, Alcohol on Breath, Tremorous, Irritable, Sweating, Anxious HEENTM: Yes: Hearing grossly Normal, Normal ENT Inspection, Normocephalic, Normal Voice Respiratory: Yes: Chest Non-Tender, Lungs Clear, Normal Breath Sounds, No Respiratory Distress, No Accessory Muscle Use Neck: Yes: Supple, Trachea in good position Breast: Yes: Breasts Symetrical Cardiology: Yes: Regular Rhythm, S1, S2, Tachycardia Abdominal: Yes: Non Tender, Soft Genitourinary: Yes: Within Normal Limits Back: Yes: Normal Inspection Musculoskeletal: Yes: full range of Motion, Gait Steady Extremities: Yes: Normal Inspection, Normal Range of Motion, Non-Tender, Tremors Neurological: Yes: Alert, Motor Strength 5/5, Normal Mood/Affect, Normal Response Integumentary: Yes: Warm Lymphatic: Yes: Within Normal Limits - Diagnostic (1) Alcohol dependence with uncomplicated withdrawal Current Visit: Yes Status: Acute (2) Positive PPD, treated Current Visit: Yes Status: Resolved (3) Nicotine dependence Current Visit: Yes Status: Acute Qualifiers: Nicotine product type: cigarettes Substance use status: in withdrawal Qualified Code(s): F17.213 - Nicotine dependence, cigarettes, with withdrawal Cleared for Admission [facility] - Detox or Rehab [facility] Level of Care: Medically Managed Detox Regimen/Protocol: Librium [facility] Breath Alcohol Content Breath Alcohol Content: 0.155 Urine Drug Screen - Results Drug Screen Negative: No Urine Drug Screen Results: TCA-Tricyclic Antidepress
[2016-08-19] MEDS ORDERED: chlordiazePOXIDE HCL 25 MG CAPSULE PO ONE (19:00)
[2016-08-19] MEDS: THIAMINE HCL 100 MG TABLET (FP) PO SCH (22:23)
[2016-08-19] MEDS: chlordiazePOXIDE HCL 25 MG CAPSULE PO SCH (22:23)
[2016-08-19] MEDS: diphenhydrAMINE HCL 50 MG CAPSULE PO PRN (22:23)
[2016-08-20] MEDS: chlordiazePOXIDE HCL 25 MG CAPSULE PO SCH ×4 (05:42→22:23)
[2016-08-20 10:07] LABS: MCH 33.1 pg (25.7-33.7); MCHC 34.2 g/dl (32.0-35.9); MEAN PLT VOLUME 8.3 fl (7.5-11.1); PLATELET COUNT 173 K/MM3 (134-434); RDW 12.8 % (11.9-15.9); WHITE BLOOD COUNT 3.6 K/mm3 (4.0-10.0)
[2016-08-20] MEDS: PRENATAL VITAMINS W/ FOLIC ACID TABLET (FP) PO SCH (10:27)
[2016-08-20] MEDS: NICOTINE 14 MG/24 HOURS TOPICAL PATCH TD SCH (10:28)
[2016-08-20 10:33] LABS: ALBUMIN 3.5 g/dl (3.4-5.0); ANION GAP 8 (8-16); CALCIUM 8.3 mg/dL (8.5-10.1); CO2 30 mmol/L (21-32); GLUCOSE,RANDOM 119 mg/dL (74-106); SGOT/AST 99 U/L (15-37); SGPT/ALT 56 U/L (12-78)
[2016-08-20 10:35] LABS: ALK PHOS 79 U/L (45-117); BILIRUBIN,TOTAL 1.2 mg/dL (0.2-1.0); CREATININE 0.9 mg/dL (0.7-1.3); TOT PROT 6.6 g/dl (6.4-8.2)
--- NOTE | 2016-08-20 11:18 | PN ---
[facility] CIWA - CIWA Score Nausea/Vomitin-No Nausea/No Vomiting Muscle Tremors: 4-Moderate,w/Arms Extend Anxiety: 4-Mod. Anxious/Guarded Agitation: 4-Moderately Restless Paroxysmal Sweats: 1-Minimal Palms Moist Orientation: 0-Oriented Tacttile Disturbances: 3-Moderate Itch/Numb/Burn Auditory Disturbances: 0-None Visual Disturbances: 0-None Headache: 0-None Present CIWA-Ar Total Score: 16 BHS Progress Note (SOAP) Subjective: ANXIETY,SWEATS,TREMORS,INTERMITTENT SLEEP. Objective: 08/20/16 11:17 Vital Signs Temperature 97.5 F L 08/20/16 09:25 Pulse Rate 95 H 08/20/16 09:25 Respiratory Rate 18 08/20/16 09:25 Blood Pressure 132/87 08/20/16 09:25 O2 Sat by Pulse Oximetry (%) Laboratory Last Values WBC 3.6 K/mm3 (4.0-10.0) L 08/20/16 07:00 RBC 4.92 M/mm3 (4.00-5.60) 08/20/16 07:00 Hgb 16.3 GM/dL (11.7-16.9) 08/20/16 07:00 Hct 47.7 % (35.4-49) 08/20/16 07:00 MCV 97.0 fl (80-96) H 08/20/16 07:00 MCHC 34.2 g/dl (32.0-35.9) 08/20/16 07:00 RDW 12.8 % (11.9-15.9) 08/20/16 07:00 Plt Count 173 K/MM3 (134-434) 08/20/16 07:00 MPV 8.3 fl (7.5-11.1) 08/20/16 07:00 Sodium 139 mmol/L (136-145) 08/20/16 07:00 Potassium 3.8 mmol/L (3.5-5.1) 08/20/16 07:00 Chloride 101 mmol/L (98-107) 08/20/16 07:00 Carbon Dioxide 30 mmol/L (21-32) D 08/20/16 07:00 Anion Gap 8 (8-16) 08/20/16 07:00 BUN 7 mg/dL (7-18) D 08/20/16 07:00 Creatinine 0.9 mg/dL (0.7-1.3) 08/20/16 07:00 Creat Clearance w eGFR > 60 (>60) 08/20/16 07:00 Random Glucose 119 mg/dL (74-106) H D 08/20/16 07:00 Calcium 8.3 mg/dL (8.5-10.1) L 08/20/16 07:00 Total Bilirubin 1.2 mg/dL (0.2-1.0) H D 08/20/16 07:00 AST 99 U/L (15-37) H D 08/20/16 07:00 ALT 56 U/L (12-78) D 08/20/16 07:00 Alkaline Phosphatase 79 U/L (45-117) 08/20/16 07:00 Total Protein 6.6 g/dl (6.4-8.2) 08/20/16 07:00 Albumin 3.5 g/dl (3.4-5.0) 08/20/16 07:00 Assessment: 08/20/16 11:17 WITHDRAWAL SX Plan: CONTINUE DETOX
--- NOTE | 2016-08-20 12:49 | EKG ---
Test Reason : Blood Pressure : / mmHG Vent. Rate : 110 BPM Atrial Rate : 110 BPM P-R Int : 146 ms QRS Dur : 088 ms QT Int : 326 ms P-R-T Axes : 080 087 066 degrees QTc Int : 441 ms SINUS TACHYCARDIA OTHERWISE NORMAL ECG WHEN COMPARED WITH ECG OF 21-JUL-2016 18:29, NO SIGNIFICANT CHANGE WAS FOUND Confirmed by NEPTALI HOFF MD ([id number]) on 08/20/2016 12:49:14 PM Referred By: Confirmed By:NEPTALI HOFF MD
[2016-08-20] MEDS: THIAMINE HCL 100 MG TABLET (FP) PO SCH (22:23)
[2016-08-20] MEDS: diphenhydrAMINE HCL 50 MG CAPSULE PO PRN (22:23)
[2016-08-21] MEDS: guaiFENesin/D-METHORPHAN HB 10 ML UNIT-DOSE CUPS PO PRN (05:42)
[2016-08-21] MEDS: chlordiazePOXIDE HCL 25 MG CAPSULE PO SCH ×3 (05:42→16:42)
[2016-08-21] MEDS: PRENATAL VITAMINS W/ FOLIC ACID TABLET (FP) PO SCH (10:55)
[2016-08-21] MEDS: NICOTINE 14 MG/24 HOURS TOPICAL PATCH TD SCH (10:56)
--- NOTE | 2016-08-21 12:20 | PN ---
[facility] CIWA - CIWA Score Nausea/Vomitin-No Nausea/No Vomiting Muscle Tremors: 4-Moderate,w/Arms Extend Anxiety: 4-Mod. Anxious/Guarded Agitation: 3 Paroxysmal Sweats: 1-Minimal Palms Moist Orientation: 0-Oriented Tacttile Disturbances: 3-Moderate Itch/Numb/Burn Auditory Disturbances: 0-None Visual Disturbances: 0-None Headache: 0-None Present CIWA-Ar Total Score: 15 S Progress Note (SOAP) Subjective: ANXIETY,TREMORS,SWEATS,INTERMITTENT SLEEP Objective: 08/21/16 12:20 Vital Signs Temperature 97.1 F L 08/21/16 09:13 Pulse Rate 114 H 08/21/16 09:13 Respiratory Rate 20 08/21/16 09:13 Blood Pressure 106/74 08/21/16 09:13 O2 Sat by Pulse Oximetry (%) Laboratory Last Values WBC 3.6 K/mm3 (4.0-10.0) L 08/20/16 07:00 RBC 4.92 M/mm3 (4.00-5.60) 08/20/16 07:00 Hgb 16.3 GM/dL (11.7-16.9) 08/20/16 07:00 Hct 47.7 % (35.4-49) 08/20/16 07:00 MCV 97.0 fl (80-96) H 08/20/16 07:00 MCHC 34.2 g/dl (32.0-35.9) 08/20/16 07:00 RDW 12.8 % (11.9-15.9) 08/20/16 07:00 Plt Count 173 K/MM3 (134-434) 08/20/16 07:00 MPV 8.3 fl (7.5-11.1) 08/20/16 07:00 Sodium 139 mmol/L (136-145) 08/20/16 07:00 Potassium 3.8 mmol/L (3.5-5.1) 08/20/16 07:00 Chloride 101 mmol/L (98-107) 08/20/16 07:00 Carbon Dioxide 30 mmol/L (21-32) D 08/20/16 07:00 Anion Gap 8 (8-16) 08/20/16 07:00 BUN 7 mg/dL (7-18) D 08/20/16 07:00 Creatinine 0.9 mg/dL (0.7-1.3) 08/20/16 07:00 Creat Clearance w eGFR > 60 (>60) 08/20/16 07:00 Random Glucose 119 mg/dL (74-106) H D 08/20/16 07:00 Calcium 8.3 mg/dL (8.5-10.1) L 08/20/16 07:00 Total Bilirubin 1.2 mg/dL (0.2-1.0) H D 08/20/16 07:00 AST 99 U/L (15-37) H D 08/20/16 07:00 ALT 56 U/L (12-78) D 08/20/16 07:00 Alkaline Phosphatase 79 U/L (45-117) 08/20/16 07:00 Total Protein 6.6 g/dl (6.4-8.2) 08/20/16 07:00 Albumin 3.5 g/dl (3.4-5.0) 08/20/16 07:00 RPR Titer Nonreactive (NONREACTIVE) 08/20/16 07:00 Assessment: 08/21/16 12:20 WITHDRAWAL SX Plan: CONTINUE DETOX
[2016-08-21] MEDS: THIAMINE HCL 100 MG TABLET (FP) PO SCH (22:28)
[2016-08-21] MEDS: chlordiazePOXIDE 5 MG CAPSULE PO SCH (22:28)
[2016-08-22] MEDS: chlordiazePOXIDE 5 MG CAPSULE PO SCH ×3 (05:29→16:43)
[2016-08-22] MEDS: guaiFENesin/D-METHORPHAN HB 10 ML UNIT-DOSE CUPS PO PRN ×2 (05:29→22:48)
[2016-08-22] MEDS: PRENATAL VITAMINS W/ FOLIC ACID TABLET (FP) PO SCH (10:26)
[2016-08-22] MEDS: NICOTINE 14 MG/24 HOURS TOPICAL PATCH TD SCH (10:26)
--- NOTE | 2016-08-22 11:06 | PN ---
BHS Progress Note (SOAP) Subjective: ANXIETY,SLIGHT TREMORS,SWATS. Objective: 08/22/16 11:06 Vital Signs Temperature 97.8 F 08/22/16 09:57 Pulse Rate 111 H 08/22/16 09:57 Respiratory Rate 20 08/22/16 09:57 Blood Pressure 126/84 08/22/16 09:57 O2 Sat by Pulse Oximetry (%) Assessment: 08/22/16 11:06 WITHDRAWAL SX Plan: CONTINUE DETOX
[2016-08-22] MEDS: chlordiazePOXIDE HCL 10 MG CAPSULE PO SCH (22:22)
[2016-08-22] MEDS: THIAMINE HCL 100 MG TABLET (FP) PO SCH (22:22)
[2016-08-22] MEDS: diphenhydrAMINE HCL 50 MG CAPSULE PO PRN (22:22)
[2016-08-23] MEDS: guaiFENesin/D-METHORPHAN HB 10 ML UNIT-DOSE CUPS PO PRN (04:19)
[2016-08-23] MEDS: chlordiazePOXIDE HCL 10 MG CAPSULE PO SCH (05:25)
[2016-08-23 09:20] VITALS: BP 132/86; PULSE 104; TEMP 97.6
--- NOTE | 2016-08-23 15:27 | DS ---
[facility] Detox Discharge Summary Admission Date: 08/19/16 Discharge Date: 08/23/16 - History Present History: Alcohol Dependence Additional Comments: ADVISED PATIENT TO FOLLOW-UP WITH [facility] [employer] AFTER DISCHARGE FROM DETOX FOR GENERAL MEDICAL ASSESSMENT. Pertinent Past History: History of Positive PPD, Seizures (ETOH-Related). - Physical Exam Results Vital Signs: Vital Signs Temperature 97.6 F 08/23/16 09:20 Pulse Rate 104 H 08/23/16 09:20 Respiratory Rate 20 08/23/16 09:20 Blood Pressure 132/86 08/23/16 09:20 O2 Sat by Pulse Oximetry (%) Pertinent Admission Physical Exam Findings: WITHDRAWAL SYMPTOMS. Laboratory Tests 08/20/16 08/20/16 08/20/16 07:00 07:00 07:00 WBC 3.6 L RBC 4.92 Hgb 16.3 Hct 47.7 MCV 97.0 H MCHC 34.2 RDW 12.8 Plt Count 173 MPV 8.3 Sodium 139 Potassium 3.8 Chloride 101 Carbon Dioxide 30 D Anion Gap 8 BUN 7 D Creatinine 0.9 Creat Clearance w eGFR > 60 Random Glucose 119 H D Calcium 8.3 L Total Bilirubin 1.2 H D AST 99 H D ALT 56 D Alkaline Phosphatase 79 Total Protein 6.6 Albumin 3.5 RPR Titer Nonreactive LABS NOTED. - Treatment Hospital Course: Detox Protocol Followed, Detoxed Safely, Responded well, Discharged Condition Good Patient has Accepted a Rehab Referral to: PATIENT ELECTING TO GO HOME. 12-STEP / AA OUTPATIENT PROGRAMS RECOMMENDED. - Medication Discharge Medications: Ambulatory Orders NK [No Known Home Medication] 01/11/16 - Diagnosis (1) Alcohol dependence with uncomplicated withdrawal Status: Acute (2) Alcohol withdrawal seizure Status: Chronic Qualifiers: Complication of substance-induced condition: with unspecified complication Qualified Code(s): F10.239 - Alcohol dependence with withdrawal, unspecified; R56.9 - Unspecified convulsions (3) Nicotine dependence Status: Chronic Qualifiers: Nicotine product type: cigarettes Substance use status: in withdrawal Qualified Code(s): F17.213 - Nicotine dependence, cigarettes, with withdrawal - AMA Did Patient Leave Against Medical Advice: No
== END 2016-08-23 09:11 | disposition home or self-care (01) | DRG 775 ==
LOC: YASAS 11:17 → Y3N 18:32
PROVIDERS: ADMIT Internal Medicine; ATTEND Internal Medicine
PROC: HZ2ZZZZ Detoxification Services for Substance Abuse Treatment (ICD-10-PCS; principal; 2016-08-19)
DX: F10.230 Alcohol dependence with withdrawal, uncomplicated (principal); F17.213 Nicotine dependence, cigarettes, with withdrawal; R00.0 Tachycardia, unspecified; R76.11 Nonspecific reaction to tuberculin skin test without active tuberculosis; Z86.69 Personal history of other diseases of the nervous system and sense organs
CPT/HCPCS: 36415; 80053; 85027; 86593; 93005; 93010

== ENCOUNTER 2017-03-03 12:15 | Inpatient (IN) | payer OTHER ==
[2017-03-03 15:06] VITALS: BMI 25.8
--- NOTE | 2017-03-03 19:40 | HP ---
CIWA Score - CIWA Score Nausea/Vomitin-Mild Nausea/No Vomiting Muscle Tremors: 4-Moderate,w/Arms Extend Anxiety: 4-Mod. Anxious/Guarded Agitation: 4-Moderately Restless Paroxysmal Sweats: 1-Minimal Palms Moist Orientation: 1-Uncertain about Date Tacttile Disturbances: 1-Very Mild Itch/Numbness Auditory Disturbances: 0-None Visual Disturbances: 0-None Headache: 1-Very Mild CIWA-Ar Total Score: 17 Admission ROS S - HPI Chief Complaint: withdrawal sx Allergies/Adverse Reactions: Allergies Allergy/AdvReac Type Severity Reaction Status Date / Time No Known Allergies Allergy Verified 03/03/17 16:30 History of Present Illness: 61 years old male with long history of alcohol nicotine dependence has diabetes ii is admitted to detox Exam Limitations: No Limitations - Ebola screening Have you traveled outside of the country in the last 21 days: No (N) Have you had contact with anyone from an Ebola affected area: No Have you been sick,other than usual withdrawal symptoms: No Do you have a fever: No - Review of Systems Constitutional: Chills, Weight Stable EENT: reports: Blurred Vision (eye glasse), Nose Congestion Respiratory: reports: No Symptoms reported Cardiac: reports: No Symptoms Reported GI: reports: Nausea, Poor Fluid Intake, Abdominal cramping : reports: No Symptoms Reported Musculoskeletal: reports: No Symptoms Reported Integumentary: reports: No Symptoms Reported Neuro: reports: Tremors Endocrine: reports: No Symptoms Reported Hematology: reports: No Symptoms Reported Psychiatric: reports: Judgement Intact, Mood/Affect Appropiate Other Systems: Reviewed and Negative Patient History - Patient Medical History Hx Anemia: No Hx Asthma: No Hx Chronic Obstructive Pulmonary Disease (COPD): No Hx Cancer: No Hx Cardiac Disorders: No Hx Congestive Heart Failure: No Hx Hypertension: No Hx Hypercholesterolemia: No (DENIES HISTORY OF HYPERLIPIDEMIA) Hx Pacemaker: No HX Cerebrovascular Accident: No Hx Seizures: Yes (alcohol related-last episode was in 02/2016) Hx Dementia: No Hx Diabetes: Yes (on metformin) Hx Gastrointestinal Disorders: No Hx Liver Disease: No Hx Genitourinary Disorders: No Hx Sexually Transmitted Disorders: No Hx Renal Disease (ESRD): No Hx Thyroid Disease: No Hx Human Immunodeficiency Virus (HIV): No (never been tested for hiv) Hx Hepatitis C: No Hx Depression: No Hx Suicide Attempt: No Hx Bipolar Disorder: No Hx Schizophrenia: Yes - Patient Surgical History Past Surgical History: No Hx Neurologic Surgery: No Hx Cataract Extraction: No Hx Cardiac Surgery: No Hx Lung Surgery: No Hx Breast Surgery: No Hx Breast Biopsy: No Hx Abdominal Surgery: No Hx Appendectomy: No Hx Cholecystectomy: No Hx Genitourinary Surgery: No Hx Orthopedic Surgery: No - PPD History Previous Implant?: No (hx pos) Documented Results: Positive w/o proof Implanted On Prior [facility] Admission?: No Results: cxray(-)02/2016 PPD to be Administered?: No - Smoking Cessation Smoking history: Current every day smoker Have you smoked in the past 12 months: Yes Aproximately how many cigarettes per day: 5 Cigars Per Day: 0 Hx Chewing Tobacco Use: No Initiated information on smoking cessation: Yes 'Breaking Loose' booklet given: 03/03/17 - Substance & Tx. History Hx Alcohol Use: Yes Hx Substance Use: No Substance Use Type: Alcohol Hx Substance Use Treatment: Yes (08/2016 [facility] - Substances Abused Alcohol Route: Oral Frequency: Daily Amount used: 1pt- vodka beers- 2 cans Age of first use: 18 Date of Last Use: 03/03/17 Family Disease History - Family Disease History Family Disease History: Other: Father (), Mother Other Family History: only child Admission Physical Exam S - Vital Signs Vital Signs: Vital Signs - 24 hr 03/03/17 15:03 Temperature 99.6 F Pulse Rate 127 H Respiratory 21 Rate Blood Pressure 139/74 - Physical General Appearance: Yes: Nourished, Appropriately Dressed, Mild Distress, Alcohol on Breath, Tremorous, Irritable, Sweating, Anxious HEENTM: Yes: Hearing grossly Normal, Normal ENT Inspection, Normocephalic, Normal Voice Respiratory: Yes: Chest Non-Tender, Lungs Clear, Normal Breath Sounds, No Respiratory Distress, No Accessory Muscle Use Neck: Yes: Supple, Trachea in good position Breast: Yes: Breasts Symetrical Cardiology: Yes: Regular Rhythm, S1, S2, Tachycardia Abdominal: Yes: Normal Bowel Sounds, Non Tender, Soft Genitourinary: Yes: Within Normal Limits Back: Yes: Normal Inspection Musculoskeletal: Yes: full range of Motion, Gait Steady Extremities: Yes: Normal Inspection, Normal Range of Motion, Non-Tender, Tremors Neurological: Yes: Alert, Motor Strength 5/5, Normal Mood/Affect, Normal Response Integumentary: Yes: Warm Lymphatic: Yes: Within Normal Limits - Diagnostic (1) Schizophrenia Current Visit: Yes Status: Suspected Qualifiers: Schizophrenia type: paranoid schizophrenia Qualified Code(s): F20.0 - Paranoid schizophrenia Comment: ace crocker 03/25/17 (2) Alcohol dependence with uncomplicated withdrawal Current Visit: Yes Status: Acute (3) DM Diabetes mellitus type 2 Current Visit: Yes Status: Chronic (4) Nicotine dependence Current Visit: Yes Status: Acute Qualifiers: Nicotine product type: cigarettes Substance use status: in withdrawal Qualified Code(s): F17.213 - Nicotine dependence, cigarettes, with withdrawal Cleared for Admission S - Detox or Rehab [facility] Level of Care: Medically Managed Detox Regimen/Protocol: Librium [facility] Breath Alcohol Content Breath Alcohol Content: 0.036 Urine Drug Screen - Results Drug Screen Negative: No Urine Drug Screen Results: TCA-Tricyclic Antidepress
[2017-03-03] MEDS ORDERED: IBUPROFEN 400 MG TABLET (FP) PO PRN (19:54)
[2017-03-03] MEDS ORDERED: chlordiazePOXIDE HCL 25 MG CAPSULE PO PRN (19:54)
[2017-03-03] MEDS ORDERED: LOPERAMIDE HCL 2 MG CAPSULE PO PRN (19:54)
[2017-03-03] MEDS ORDERED: NICOTINE POLACRILEX 2 MG GUM BUC PRN (19:54)
[2017-03-03] MEDS ORDERED: MENTHOL/PHENOL 1 EACH UD MM PRN (19:54)
[2017-03-03] MEDS ORDERED: MAGNESIUM CITRATE 300 ML BOTTLE PO PRN (19:54)
[2017-03-03] MEDS ORDERED: MAGNESIUM HYDROX 2400MG/30ML ORAL SUSPENSION 30 ML CUP PO PRN (19:54)
[2017-03-03] MEDS ORDERED: P-EPHED 60MG/TRIPROLIDI 2.5MG TABLET PO PRN (19:54)
[2017-03-03] MEDS ORDERED: MAG HYDROX/AL HYDROX/SIMETH 30 ML UNIT-DOSE CUP PO PRN (19:54)
[2017-03-03] MEDS ORDERED: ACETAMINOPHEN 325 MG TABLET (FP) PO PRN (19:54)
[2017-03-03 21:30] LABS: URINE APPEARANCE CLEAR; URINE BILIRUBIN NEGATIVE (NEGATIVE); URINE BLOOD NEGATIVE (NEGATIVE); URINE COLOR YELLOW; URINE GLUCOSE (UA) 1+ (NEGATIVE); URINE KETONE 1+ (NEGATIVE); URINE LEUK ESTERASE NEGATIVE (NEGATIVE); URINE NITRITE NEGATIVE (NEGATIVE); URINE PROTEIN 2+ (NEGATIVE)
[2017-03-03 21:40] LABS: URINE HYALINE CAST 1 /lpf; URINE MUCUS MANY; URINE RBC <1 /hpf (0-3); URINE WBC 3 /hpf (3-5)
[2017-03-03] MEDS: INSULIN SLIDING SCALE (NOVOLOG) 1 VIAL SQ SCH (22:28)
[2017-03-03] MEDS: chlordiazePOXIDE HCL 25 MG CAPSULE PO SCH (22:28)
[2017-03-03] MEDS: THIAMINE HCL 100 MG TABLET (FP) PO SCH (22:28)
[2017-03-03 22:53] LABS: URINE LEUK ESTERASE Negative (NEGATIVE)
[2017-03-04] MEDS: chlordiazePOXIDE HCL 25 MG CAPSULE PO SCH ×4 (05:26→22:28)
[2017-03-04] MEDS: metFORMIN HCL 500 MG TABLET (FP) PO SCH (07:11)
[2017-03-04] MEDS: INSULIN SLIDING SCALE (NOVOLOG) 1 VIAL SQ SCH ×4 (07:12→22:29)
[2017-03-04] MEDS: PRENATAL VITAMINS W/ FOLIC ACID TABLET (FP) PO SCH (10:28)
[2017-03-04] MEDS: NICOTINE 14 MG/24 HOURS TOPICAL PATCH TD SCH (10:29)
[2017-03-04 10:30] LABS: ALBUMIN 3.3 g/dl (3.4-5.0); ALK PHOS 109 U/L (45-117); ANION GAP 8 (8-16); BILIRUBIN,TOTAL 1.5 mg/dL (0.2-1.0); CALCIUM 8.6 mg/dL (8.5-10.1); CO2 30 mmol/L (21-32); CREATININE 0.9 mg/dL (0.7-1.3); GLUCOSE,RANDOM 187 mg/dL (74-106); SGOT/AST 33 U/L (15-37); SGPT/ALT 30 U/L (12-78); TOT PROT 6.3 g/dl (6.4-8.2)
[2017-03-04 10:53] LABS: MCHC 33.5 g/dl (32.0-35.9); MEAN CELL VOLUME 95.4 fl (80-96); PLATELET COUNT 162 K/MM3 (134-434); RDW 14.3 % (11.9-15.9); WHITE BLOOD COUNT 3.1 K/mm3 (4.0-10.0)
--- NOTE | 2017-03-04 11:05 | PN ---
[facility] CIWA - CIWA Score Nausea/Vomitin-No Nausea/No Vomiting Muscle Tremors: 4-Moderate,w/Arms Extend Anxiety: 4-Mod. Anxious/Guarded Agitation: 4-Moderately Restless Paroxysmal Sweats: 1-Minimal Palms Moist Orientation: 0-Oriented Tacttile Disturbances: 3-Moderate Itch/Numb/Burn Auditory Disturbances: 0-None Visual Disturbances: 0-None Headache: 0-None Present CIWA-Ar Total Score: 16 BHS Progress Note (SOAP) Subjective: ANXIETY,SWEATS,TREMORS,INTERMITTENT SLEEP. Objective: 03/04/17 11:03 Vital Signs Temperature 95.8 F L 03/04/17 09:18 Pulse Rate 116 H 03/04/17 09:18 Respiratory Rate 20 03/04/17 09:18 Blood Pressure 139/94 03/04/17 09:18 O2 Sat by Pulse Oximetry (%) Laboratory Last Values WBC 3.1 K/mm3 (4.0-10.0) L 03/04/17 07:54 RBC 5.07 M/mm3 (4.00-5.60) 03/04/17 07:54 Hgb 16.2 GM/dL (11.7-16.9) 03/04/17 07:54 Hct 48.4 % (35.4-49) 03/04/17 07:54 MCV 95.4 fl (80-96) 03/04/17 07:54 MCH 32.0 pg (25.7-33.7) 03/04/17 07:54 MCHC 33.5 g/dl (32.0-35.9) 03/04/17 07:54 RDW 14.3 % (11.9-15.9) D 03/04/17 07:54 Plt Count 162 K/MM3 (134-434) 03/04/17 07:54 MPV 8.0 fl (7.5-11.1) 03/04/17 07:54 Sodium 140 mmol/L (136-145) 03/04/17 07:54 Potassium 3.0 mmol/L (3.5-5.1) L D 03/04/17 07:54 Chloride 102 mmol/L (98-107) 03/04/17 07:54 Carbon Dioxide 30 mmol/L (21-32) 03/04/17 07:54 Anion Gap 8 (8-16) 03/04/17 07:54 BUN 6 mg/dL (7-18) L 03/04/17 07:54 Creatinine 0.9 mg/dL (0.7-1.3) 03/04/17 07:54 Creat Clearance w eGFR > 60 (>60) 03/04/17 07:54 POC Glucometer 155 UNITS (80-120) 03/04/17 05:25 Random Glucose 187 mg/dL (74-106) H D 03/04/17 07:54 Calcium 8.6 mg/dL (8.5-10.1) 03/04/17 07:54 Total Bilirubin 1.5 mg/dL (0.2-1.0) H D 03/04/17 07:54 AST 33 U/L (15-37) D 03/04/17 07:54 ALT 30 U/L (12-78) D 03/04/17 07:54 Alkaline Phosphatase 109 U/L (45-117) D 03/04/17 07:54 Total Protein 6.3 g/dl (6.4-8.2) L 03/04/17 07:54 Albumin 3.3 g/dl (3.4-5.0) L 03/04/17 07:54 Urine Color Yellow 03/03/17 21:00 Urine Appearance Clear 03/03/17 21:00 Urine pH 5.0 (5.0-8.0) 03/03/17 21:00 Ur Specific [place] 1.024 (1.001-1.035) 03/03/17 21:00 Urine Protein 2+ (NEGATIVE) H 03/03/17 21:00 Urine Glucose (UA) 1+ (NEGATIVE) H 03/03/17 21:00 Urine Ketones 1+ (NEGATIVE) H 03/03/17 21:00 Urine Blood Negative (NEGATIVE) 03/03/17 21:00 Urine Nitrite Negative (NEGATIVE) 03/03/17 21:00 Urine Bilirubin Negative (NEGATIVE) 03/03/17 21:00 Urine Urobilinogen 2.0 mg/dL (0.2-1.0) 03/03/17 21:00 Ur Leukocyte Esterase Negative (NEGATIVE) 03/03/17 21:00 Urine WBC (Auto) 3 /hpf (3-5) 03/03/17 21:00 Urine RBC (Auto) <1 /hpf (0-3) 03/03/17 21:00 Ur Epithelial Cells Rare /HPF (FEW) 03/03/17 21:00 Hyaline Casts 1 /lpf 03/03/17 21:00 Urine Mucus Many 03/03/17 21:00 K+ = 3.0 Assessment: 03/04/17 11:04 WITHDRAWAL SX Plan: CONTINUE DETOX
--- NOTE | 2017-03-04 13:04 | EKG ---
Test Reason : Blood Pressure : / mmHG Vent. Rate : 107 BPM Atrial Rate : 107 BPM P-R Int : 134 ms QRS Dur : 078 ms QT Int : 336 ms P-R-T Axes : 081 088 069 degrees QTc Int : 448 ms SINUS TACHYCARDIA POSSIBLE LEFT ATRIAL ENLARGEMENT ANTERIOR INFARCT , AGE UNDETERMINED ABNORMAL ECG WHEN COMPARED WITH ECG OF 19-AUG-2016 18:35, NO SIGNIFICANT CHANGE WAS FOUND Confirmed by NEPTALI HOFF MD ([id number]) on 03/04/2017 1:04:32 PM Referred By: Confirmed By:NEPTALI HOFF MD
[2017-03-04] MEDS ORDERED: POTASSIUM CHLORIDE TABS 20 MEQ TABLET.ER (FP) PO ONE (17:45)
[2017-03-04] MEDS: THIAMINE HCL 100 MG TABLET (FP) PO SCH (22:28)
[2017-03-04] MEDS: POTASSIUM CHLORIDE TABS 20 MEQ TABLET.ER (FP) PO SCH (22:29)
[2017-03-05] MEDS: chlordiazePOXIDE HCL 25 MG CAPSULE PO SCH ×3 (05:58→17:45)
[2017-03-05] MEDS: metFORMIN HCL 500 MG TABLET (FP) PO SCH (06:00)
[2017-03-05] MEDS: INSULIN SLIDING SCALE (NOVOLOG) 1 VIAL SQ SCH ×2 (06:34→17:34)
[2017-03-05] MEDS: guaiFENesin/D-METHORPHAN HB 10 ML UNIT-DOSE CUPS PO PRN ×2 (06:36→15:51)
[2017-03-05] MEDS ORDERED: INSULIN SLIDING SCALE (NOVOLOG) 1 VIAL SQ SCH (10:00)
[2017-03-05] MEDS: PRENATAL VITAMINS W/ FOLIC ACID TABLET (FP) PO SCH (10:27)
[2017-03-05] MEDS: NICOTINE 14 MG/24 HOURS TOPICAL PATCH TD SCH (10:27)
[2017-03-05] MEDS: POTASSIUM CHLORIDE TABS 20 MEQ TABLET.ER (FP) PO SCH ×2 (10:27→22:03)
--- NOTE | 2017-03-05 11:32 | PN ---
[facility] CIWA - CIWA Score Nausea/Vomitin-No Nausea/No Vomiting Muscle Tremors: 4-Moderate,w/Arms Extend Anxiety: 4-Mod. Anxious/Guarded Agitation: 4-Moderately Restless Paroxysmal Sweats: 1-Minimal Palms Moist Orientation: 0-Oriented Tacttile Disturbances: 3-Moderate Itch/Numb/Burn Auditory Disturbances: 0-None Visual Disturbances: 0-None Headache: 0-None Present CIWA-Ar Total Score: 16 BHS Progress Note (SOAP) Subjective: SLIGHT ANXIETY,SWEATS,TREMORS.FATIGUE. REPORTS MEDS EFFECTIVE FOR W/S. Objective: 03/05/17 11:31 Vital Signs Temperature 99.1 F 03/05/17 09:15 Pulse Rate 110 H 03/05/17 09:15 Respiratory Rate 20 03/05/17 09:15 Blood Pressure 117/78 03/05/17 09:15 O2 Sat by Pulse Oximetry (%) Laboratory Last Values WBC 3.1 K/mm3 (4.0-10.0) L 03/04/17 07:54 RBC 5.07 M/mm3 (4.00-5.60) 03/04/17 07:54 Hgb 16.2 GM/dL (11.7-16.9) 03/04/17 07:54 Hct 48.4 % (35.4-49) 03/04/17 07:54 MCV 95.4 fl (80-96) 03/04/17 07:54 MCH 32.0 pg (25.7-33.7) 03/04/17 07:54 MCHC 33.5 g/dl (32.0-35.9) 03/04/17 07:54 RDW 14.3 % (11.9-15.9) D 03/04/17 07:54 Plt Count 162 K/MM3 (134-434) 03/04/17 07:54 MPV 8.0 fl (7.5-11.1) 03/04/17 07:54 Sodium 140 mmol/L (136-145) 03/04/17 07:54 Potassium 3.0 mmol/L (3.5-5.1) L D 03/04/17 07:54 Chloride 102 mmol/L (98-107) 03/04/17 07:54 Carbon Dioxide 30 mmol/L (21-32) 03/04/17 07:54 Anion Gap 8 (8-16) 03/04/17 07:54 BUN 6 mg/dL (7-18) L 03/04/17 07:54 Creatinine 0.9 mg/dL (0.7-1.3) 03/04/17 07:54 Creat Clearance w eGFR > 60 (>60) 03/04/17 07:54 POC Glucometer 167 UNITS (80-120) 03/05/17 05:57 Random Glucose 187 mg/dL (74-106) H D 03/04/17 07:54 Calcium 8.6 mg/dL (8.5-10.1) 03/04/17 07:54 Total Bilirubin 1.5 mg/dL (0.2-1.0) H D 03/04/17 07:54 AST 33 U/L (15-37) D 03/04/17 07:54 ALT 30 U/L (12-78) D 03/04/17 07:54 Alkaline Phosphatase 109 U/L (45-117) D 03/04/17 07:54 Total Protein 6.3 g/dl (6.4-8.2) L 03/04/17 07:54 Albumin 3.3 g/dl (3.4-5.0) L 03/04/17 07:54 Urine Color Yellow 03/03/17 21:00 Urine Appearance Clear 03/03/17 21:00 Urine pH 5.0 (5.0-8.0) 03/03/17 21:00 Ur Specific [place] 1.024 (1.001-1.035) 03/03/17 21:00 Urine Protein 2+ (NEGATIVE) H 03/03/17 21:00 Urine Glucose (UA) 1+ (NEGATIVE) H 03/03/17 21:00 Urine Ketones 1+ (NEGATIVE) H 03/03/17 21:00 Urine Blood Negative (NEGATIVE) 03/03/17 21:00 Urine Nitrite Negative (NEGATIVE) 03/03/17 21:00 Urine Bilirubin Negative (NEGATIVE) 03/03/17 21:00 Urine Urobilinogen 2.0 mg/dL (0.2-1.0) 03/03/17 21:00 Ur Leukocyte Esterase Negative (NEGATIVE) 03/03/17 21:00 Urine WBC (Auto) 3 /hpf (3-5) 03/03/17 21:00 Urine RBC (Auto) <1 /hpf (0-3) 03/03/17 21:00 Ur Epithelial Cells Rare /HPF (FEW) 03/03/17 21:00 Hyaline Casts 1 /lpf 03/03/17 21:00 Urine Mucus Many 03/03/17 21:00 RPR Titer Nonreactive (NONREACTIVE) 03/04/17 07:54 Assessment: 03/05/17 11:32 WITHDRAWAL SX HYPOKALEMIA Plan: CONTINUE DETOX POTASSIUM SUPPLEMENTATION IN PROGRESS.
[2017-03-05 14:04] LABS: ANION GAP 10 (8-16); CALCIUM 9.3 mg/dL (8.5-10.1); CO2 27 mmol/L (21-32); CREATININE 0.7 mg/dL (0.7-1.3); GLUCOSE,RANDOM 190 mg/dL (74-106)
[2017-03-05] MEDS: chlordiazePOXIDE 5 MG CAPSULE PO SCH (22:03)
[2017-03-05] MEDS: THIAMINE HCL 100 MG TABLET (FP) PO SCH (22:03)
[2017-03-06] MEDS: chlordiazePOXIDE 5 MG CAPSULE PO SCH ×3 (05:20→17:27)
[2017-03-06] MEDS ORDERED: INSULIN (NOVOLOG) ASPART 100 UNITS/ML 10ML VIAL ONE ×3 (06:22→17:29)
[2017-03-06] MEDS: metFORMIN HCL 500 MG TABLET (FP) PO SCH (07:17)
[2017-03-06] MEDS: INSULIN SLIDING SCALE (NOVOLOG) 1 VIAL SQ SCH ×2 (07:21→17:30)
[2017-03-06] MEDS: POTASSIUM CHLORIDE TABS 20 MEQ TABLET.ER (FP) PO SCH ×2 (10:28→22:12)
[2017-03-06] MEDS: PRENATAL VITAMINS W/ FOLIC ACID TABLET (FP) PO SCH (10:28)
[2017-03-06] MEDS: NICOTINE 14 MG/24 HOURS TOPICAL PATCH TD SCH (10:28)
--- NOTE | 2017-03-06 13:04 | PN ---
BHS Progress Note (SOAP) Subjective: ANXIETY,SWEATS,DECREASED FATIGUE. HX SCHIZOPHRENIA..TO FOLLOW UP WITH PSYCH TODAY. Objective: 03/06/17 13:02 Vital Signs Temperature 98.2 F 03/06/17 09:18 Pulse Rate 122 H 03/06/17 09:18 Respiratory Rate 16 03/06/17 09:18 Blood Pressure 103/66 03/06/17 09:18 O2 Sat by Pulse Oximetry (%) Laboratory Last Values WBC 3.1 K/mm3 (4.0-10.0) L 03/04/17 07:54 RBC 5.07 M/mm3 (4.00-5.60) 03/04/17 07:54 Hgb 16.2 GM/dL (11.7-16.9) 03/04/17 07:54 Hct 48.4 % (35.4-49) 03/04/17 07:54 MCV 95.4 fl (80-96) 03/04/17 07:54 MCH 32.0 pg (25.7-33.7) 03/04/17 07:54 MCHC 33.5 g/dl (32.0-35.9) 03/04/17 07:54 RDW 14.3 % (11.9-15.9) D 03/04/17 07:54 Plt Count 162 K/MM3 (134-434) 03/04/17 07:54 MPV 8.0 fl (7.5-11.1) 03/04/17 07:54 Sodium 142 mmol/L (136-145) 03/05/17 08:55 Potassium 3.8 mmol/L (3.5-5.1) D 03/05/17 08:55 Chloride 105 mmol/L (98-107) 03/05/17 08:55 Carbon Dioxide 27 mmol/L (21-32) 03/05/17 08:55 Anion Gap 10 (8-16) 03/05/17 08:55 BUN 7 mg/dL (7-18) 03/05/17 08:55 Creatinine 0.7 mg/dL (0.7-1.3) D 03/05/17 08:55 Creat Clearance w eGFR > 60 (>60) 03/04/17 07:54 POC Glucometer 234 UNITS (80-120) 03/06/17 05:21 Random Glucose 190 mg/dL (74-106) H 03/05/17 08:55 Calcium 9.3 mg/dL (8.5-10.1) 03/05/17 08:55 Total Bilirubin 1.5 mg/dL (0.2-1.0) H D 03/04/17 07:54 AST 33 U/L (15-37) D 03/04/17 07:54 ALT 30 U/L (12-78) D 03/04/17 07:54 Alkaline Phosphatase 109 U/L (45-117) D 03/04/17 07:54 Total Protein 6.3 g/dl (6.4-8.2) L 03/04/17 07:54 Albumin 3.3 g/dl (3.4-5.0) L 03/04/17 07:54 Urine Color Yellow 03/03/17 21:00 Urine Appearance Clear 03/03/17 21:00 Urine pH 5.0 (5.0-8.0) 03/03/17 21:00 Ur Specific [place] 1.024 (1.001-1.035) 03/03/17 21:00 Urine Protein 2+ (NEGATIVE) H 03/03/17 21:00 Urine Glucose (UA) 1+ (NEGATIVE) H 03/03/17 21:00 Urine Ketones 1+ (NEGATIVE) H 03/03/17 21:00 Urine Blood Negative (NEGATIVE) 03/03/17 21:00 Urine Nitrite Negative (NEGATIVE) 03/03/17 21:00 Urine Bilirubin Negative (NEGATIVE) 03/03/17 21:00 Urine Urobilinogen 2.0 mg/dL (0.2-1.0) 03/03/17 21:00 Ur Leukocyte Esterase Negative (NEGATIVE) 03/03/17 21:00 Urine WBC (Auto) 3 /hpf (3-5) 03/03/17 21:00 Urine RBC (Auto) <1 /hpf (0-3) 03/03/17 21:00 Ur Epithelial Cells Rare /HPF (FEW) 03/03/17 21:00 Hyaline Casts 1 /lpf 03/03/17 21:00 Urine Mucus Many 03/03/17 21:00 RPR Titer Nonreactive (NONREACTIVE) 03/04/17 07:54 Assessment: 03/06/17 13:02 WITHDRAWAL SX Plan: CONTINUE DETOX SEEN BY PSYCH TODAY.
--- NOTE | 2017-03-06 13:04 | CONSULT ---
[facility] Psychiatric Consult - Data Date of interview: 03/06/17 Admission source: [facility] Identifying data: This is one of multiple psychiatric admissions to [facility] for this [place]-born male ([place]ig[place] to [place] at age 18) seeking detox treatment [place] [address] for alcohol dependence.Patient is ,a father of one (son is still living in [place] [facility] with patient's estranged ), domiciled,unemployed and supported on SSI benefits. Substance Abuse History: Confirmed by patient in this interview.See details in current [facility] report : Smoking history: Current every day smoker. Have you smoked in the past 12 months: Yes. Aproximately how many cigarettes per day: 5. Cigars Per Day: 0. Hx Chewing Tobacco Use: No. Initiated information on smoking cessation: Yes. 'Breaking Loose' booklet given: 03/03/17. - Substance & Tx. History. Hx Alcohol Use: Yes. Hx Substance Use: No. Substance Use Type : Alcohol. Hx Substance Use Treatment: Yes (08/2016 [facility]). - Substances Abused. Alcohol. Route: Oral. Frequency: Daily. Amount used: 1pt- vodka beers- 2 cans. Age of first use: 18. Date of Last Use: 03/03/17 Medical History: History of withdrawal-related seizures and diabetes mellitus. Psychiatric History: Patient is a limited historian." Uncertain " about the number of psychiatric hospitalizations.Mr Phan declares that he has been diagnosed with Schizophrenia.He is currently followed at the [facility] by Dr Cedrick Suarez (next appointment scheduled for ).Maintained on haldol decanoate 75 mg IM monthly (received by 02/24/17) .Patient endorses optimal adherence to OPD care.Denies history of suicide attempts. Physical/Sexual Abuse/Trauma History: Patient denies. Additional Comment: Urine Drug Screen Results: TCA-Tricyclic Antidepressant.Noted. Mental Status Exam - Mental Status Exam Alert and Oriented to: Time, Place, Person Cognitive Function: Grossly Intact Patient Appearance: Well Groomed Mood: Withdrawn, Hopeful, Euthymic Affect: Constricted Patient Behavior: Fatigued, Appropriate (friendly), Cooperative Speech Pattern: Clear, Appropriate Voice Loudness: Normal Thought Process: Goal Oriented Thought Disorder: Not Present Hallucinations: Denies Suicidal Ideation: Denies Homicidal Ideation: Denies Insight/Judgement: Fair Sleep: Well Appetite: Good Muscle strength/Tone: Normal Gait/Station: Normal Psychiatric Findings - Problem List ([place] 1, 2,3) (1) Alcohol dependence with uncomplicated withdrawal Current Visit: Yes Status: Acute (2) Nicotine dependence Current Visit: Yes Status: Acute Qualifiers: Nicotine product type: cigarettes Substance use status: in withdrawal Qualified Code(s): F17.213 - Nicotine dependence, cigarettes, with withdrawal (3) Schizophrenia Current Visit: Yes Status: Chronic Qualifiers: Schizophrenia type: paranoid schizophrenia Qualified Code(s): F20.0 - Paranoid schizophrenia Comment: next haldol im 03/25/17 - Initial Treatment Plan Initial Treatment Plan: Psychoeducation.Records are reviewed.Psychoeducation and support provided in session.Detoxification in progress.Recent pharmacy claims are surveyed (refill for haldol decanoate 75 mg/IM issued on 02/24/17 at [facility]).Not due for renewal.Observation.
[2017-03-06] MEDS: THIAMINE HCL 100 MG TABLET (FP) PO SCH (22:12)
[2017-03-06] MEDS: chlordiazePOXIDE HCL 10 MG CAPSULE PO SCH (22:12)
[2017-03-07] MEDS: chlordiazePOXIDE HCL 10 MG CAPSULE PO SCH (06:09)
[2017-03-07] MEDS: metFORMIN HCL 500 MG TABLET (FP) PO SCH (06:22)
[2017-03-07 06:58] VITALS: BP 112/77; PULSE 107; TEMP 97.4
[2017-03-07] MEDS ORDERED: INSULIN (NOVOLOG) ASPART 100 UNITS/ML 10ML VIAL ONE (07:38)
[2017-03-07] MEDS: INSULIN SLIDING SCALE (NOVOLOG) 1 VIAL SQ SCH (07:46)
--- NOTE | 2017-03-07 19:23 | DS ---
[facility] Detox Discharge Summary Admission Date: 03/03/17 Discharge Date: 03/07/17 - History Present History: Alcohol Dependence Additional Comments: PATIENT GOING HOME. PATIENT ADVISED TO CONSIDER LOCAL 12-STEP / AA OUTPATIENT SUPPORT GROUP TREATMENT PROGRAMS FOR AFTERCARE. PATIENT WAS DISCHARGED FROM DETOX UNIT IN STABLE MEDICAL CONDITION. Pertinent Past History: History of Seizures (Due to ETOH Withdrawal), Nicotine Dependence, Schizophrenia , Type II DM. - Physical Exam Results Vital Signs: Vital Signs Temperature 97.4 F L 03/07/17 06:10 Pulse Rate 107 H 03/07/17 06:10 Respiratory Rate 18 03/07/17 06:10 Blood Pressure 112/77 03/07/17 06:10 O2 Sat by Pulse Oximetry (%) Pertinent Admission Physical Exam Findings: WITHDRAWAL SYMPTOMS. Laboratory Tests 03/03/17 03/03/17 03/03/17 16:34 21:00 22:26 WBC RBC Hgb Hct MCV MCH MCHC RDW Plt Count MPV Sodium Potassium Chloride Carbon Dioxide Anion Gap BUN Creatinine Creat Clearance w eGFR POC Glucometer 197 170 Random Glucose Calcium Total Bilirubin AST ALT Alkaline Phosphatase Total Protein Albumin Urine Color Yellow Urine Appearance Clear Urine pH 5.0 Ur Specific [place] 1.024 Urine Protein 2+ H Urine Glucose (UA) 1+ H Urine Ketones 1+ H Urine Blood Negative Urine Nitrite Negative Urine Bilirubin Negative Urine Urobilinogen 2.0 Ur Leukocyte Esterase Negative Urine WBC (Auto) 3 Urine RBC (Auto) <1 Ur Epithelial Cells Rare Hyaline Casts 1 Urine Mucus Many RPR Titer 03/04/17 03/04/17 03/04/17 05:25 07:54 07:54 WBC 3.1 L RBC 5.07 Hgb 16.2 Hct 48.4 MCV 95.4 MCH 32.0 MCHC 33.5 RDW 14.3 D Plt Count 162 MPV 8.0 Sodium 140 Potassium 3.0 L D Chloride 102 Carbon Dioxide 30 Anion Gap 8 BUN 6 L Creatinine 0.9 Creat Clearance w eGFR > 60 POC Glucometer 155 Random Glucose 187 H D Calcium 8.6 Total Bilirubin 1.5 H D AST 33 D ALT 30 D Alkaline Phosphatase 109 D Total Protein 6.3 L Albumin 3.3 L Urine Color Urine Appearance Urine pH Ur Specific [place] Urine Protein Urine Glucose (UA) Urine Ketones Urine Blood Urine Nitrite Urine Bilirubin Urine Urobilinogen Ur Leukocyte Esterase Urine WBC (Auto) Urine RBC (Auto) Ur Epithelial Cells Hyaline Casts Urine Mucus RPR Titer 03/04/17 03/05/17 03/05/17 07:54 05:57 08:55 WBC RBC Hgb Hct MCV MCH MCHC RDW Plt Count MPV Sodium 142 Potassium 3.8 D Chloride 105 Carbon Dioxide 27 Anion Gap 10 BUN 7 Creatinine 0.7 D Creat Clearance w eGFR POC Glucometer 167 Random Glucose 190 H Calcium 9.3 Total Bilirubin AST ALT Alkaline Phosphatase Total Protein Albumin Urine Color Urine Appearance Urine pH Ur Specific [place] Urine Protein Urine Glucose (UA) Urine Ketones Urine Blood Urine Nitrite Urine Bilirubin Urine Urobilinogen Ur Leukocyte Esterase Urine WBC (Auto) Urine RBC (Auto) Ur Epithelial Cells Hyaline Casts Urine Mucus RPR Titer Nonreactive 03/06/17 03/06/17 03/07/17 05:21 17:26 06:08 WBC RBC Hgb Hct MCV MCH MCHC RDW Plt Count MPV Sodium Potassium Chloride Carbon Dioxide Anion Gap BUN Creatinine Creat Clearance w eGFR POC Glucometer 234 214 209 Random Glucose Calcium Total Bilirubin AST ALT Alkaline Phosphatase Total Protein Albumin Urine Color Urine Appearance Urine pH Ur Specific [place] Urine Protein Urine Glucose (UA) Urine Ketones Urine Blood Urine Nitrite Urine Bilirubin Urine Urobilinogen Ur Leukocyte Esterase Urine WBC (Auto) Urine RBC (Auto) Ur Epithelial Cells Hyaline Casts Urine Mucus RPR Titer LABS NOTED. - Treatment Hospital Course: Detox Protocol Followed, Detoxed Safely, Responded well, Discharged Condition Good Patient has Accepted a Rehab Referral to: PT ADVISED TO CONSIDER LOCAL 12-STEP/ AA OUTPATIENT SUPPORT GROUPS. - Medication Discharge Medications: Ambulatory Orders Metformin HCl 1,000 mg PO DAILY #30 tablet 03/07/17 - Diagnosis (1) Alcohol dependence with uncomplicated withdrawal Status: Acute (2) Nicotine dependence Status: Acute Qualifiers: Nicotine product type: cigarettes Substance use status: in withdrawal Qualified Code(s): F17.213 - Nicotine dependence, cigarettes, with withdrawal (3) DM Diabetes mellitus type 2 Status: Chronic (4) Schizophrenia Status: Chronic Qualifiers: Schizophrenia type: paranoid schizophrenia Qualified Code(s): F20.0 - Paranoid schizophrenia - AMA Did Patient Leave Against Medical Advice: No
== END 2017-03-07 09:20 | disposition home or self-care (01) | DRG 775 ==
LOC: YASAS 12:15 → Y3N 17:32
PROVIDERS: ADMIT Internal Medicine; ATTEND Internal Medicine
PROC: HZ2ZZZZ Detoxification Services for Substance Abuse Treatment (ICD-10-PCS; principal; 2017-03-03)
DX: F10.230 Alcohol dependence with withdrawal, uncomplicated (principal); F17.213 Nicotine dependence, cigarettes, with withdrawal; F20.0 Paranoid schizophrenia; E11.9 Type 2 diabetes mellitus without complications; E78.5 Hyperlipidemia, unspecified; E87.6 Hypokalemia; R00.0 Tachycardia, unspecified; Z86.69 Personal history of other diseases of the nervous system and sense organs; Z87.898 Personal history of other specified conditions; Z79.84 Long term (current) use of oral hypoglycemic drugs
CPT/HCPCS: 36415; 71020-TC; 80048; 80053; 81003; 81015; 85027; 86593; 93005; 93010

== ENCOUNTER 2018-05-14 08:12 | Inpatient (IN) | payer OTHER ==
[2018-05-14 08:36] VITALS: BMI 25.2
--- NOTE | 2018-05-14 09:34 | HP ---
CIWA Score Nausea/Vomitin Muscle Tremors: 2 Anxiety: 2 Agitation: 2 Paroxysmal Sweats: 1-Minimal Palms Moist Orientation: 0-Oriented Tacttile Disturbances: 1-Very Mild Itch/Numbness Auditory Disturbances: 1-Very Mild Visual Disturbances: 0-None Headache: 2-Mild CIWA-Ar Total Score: 13 - Admission Criteria [facility] Guidelines: Admission for Medically Managed Detox: Requires at least one of the followin. CIWA greater than 12 2. Seizures within the past 24 hours 3. Delirium tremens within the past 24 hours 4. Hallucinations within the past 24 hours 5. Acute intervention needed for co occurring medical disorder 6. Acute intervention needed for co occurring psychiatric disorder 7. Severe withdrawal that cannot be handled at a lower level of care (continued vomiting, continued diarrhea, abnormal vital signs) requiring intravenous medication and/or fluids 8. Patient presents the following: CIWA greater than 12 Admission Criteria Met: Admission criteria met Admission ROS BHS - HPI Chief Complaint: i need help to stop drinking alcohol Allergies/Adverse Reactions: Allergies Allergy/AdvReac Type Severity Reaction Status Date / Time No Known Allergies Allergy Verified 05/14/18 08:50 History of Present Illness: this 62 years old male with alcohol dependence,seeking detox,withdrawal symptom, multiple admissions in detox but keep relapsing fell at home ,[facility],had fx left humerus on 05/12/18 had immobilization left forearm type 2 dm ,diet control nicotine dependence 3 cigars/day positive ppd plan to go to rehab Exam Limitations: No Limitations - Ebola screening Have you traveled outside of the country in the last 21 days: No Have you had contact with anyone from an Ebola affected area: No Have you been sick,other than usual withdrawal symptoms: No Do you have a fever: No - Review of Systems Constitutional: Malaise, Night Sweats, Weakness EENT: reports: Nose Congestion Respiratory: reports: No Symptoms reported Cardiac: reports: Palpitations GI: reports: Nausea, Poor Appetite, Abdominal cramping : reports: No Symptoms Reported Musculoskeletal: reports: Back Pain, Muscle Pain, Other (pain in the left uppr arm with ecchymosis fx left humerus) Integumentary: reports: Dryness Endocrine: reports: No Symptoms Reported Hematology: reports: No Symptoms Reported Psychiatric: reports: No Sypmtoms Reported, Judgement Intact, Mood/Affect Appropiate, Orientated x3 Other Systems: Reviewed and Negative Patient History - Patient Medical History Hx Anemia: No Hx Asthma: No Hx Chronic Obstructive Pulmonary Disease (COPD): No Hx Cancer: No Hx Cardiac Disorders: No Hx Congestive Heart Failure: No Hx Hypertension: No Hx Hypercholesterolemia: No Hx Pacemaker: No HX Cerebrovascular Accident: No Hx Seizures: No Hx Dementia: No Hx Diabetes: Yes (NOT ON MEDICATIONS) Hx Gastrointestinal Disorders: No Hx Liver Disease: No Hx Genitourinary Disorders: No Hx Sexually Transmitted Disorders: No Hx Renal Disease (ESRD): No Hx Thyroid Disease: No Hx Human Immunodeficiency Virus (HIV): No (never been tested for hiv) Hx Hepatitis C: No Hx Depression: No Hx Suicide Attempt: No Hx Bipolar Disorder: No Hx Schizophrenia: Yes (no med) Other Medical History: no suicidal,no homicidal,fx of left humerus on 05/12/18 - Patient Surgical History Past Surgical History: No Hx Neurologic Surgery: No Hx Cataract Extraction: No Hx Cardiac Surgery: No Hx Lung Surgery: No Hx Breast Surgery: No Hx Breast Biopsy: No Hx Abdominal Surgery: No Hx Appendectomy: No Hx Cholecystectomy: No Hx Genitourinary Surgery: No Hx Section: No Hx Orthopedic Surgery: No Anesthesia Reaction: No - PPD History Documented Results: Positive w/o proof Results: cxray(-)02/2016 PPD to be Administered?: No - Smoking Cessation Smoking history: Current every day smoker Have you smoked in the past 12 months: Yes Cigars Per Day: 5 Hx Chewing Tobacco Use: No Initiated information on smoking cessation: Yes 'Breaking Loose' booklet given: 05/14/18 - Substance & Tx. History Hx Alcohol Use: Yes Hx Substance Use: No Substance Use Type: Alcohol Hx Substance Use Treatment: Yes ([facility] 03/03/17 to 03/07/17) - Substances Abused Alcohol Route: Oral Frequency: Daily Amount used: 1/2 PINT OF VODKA, 2 CANS OF BEER 16OZS Age of first use: 24 Date of Last Use: 05/12/18 Family Disease History - Family Disease History Family Disease History: Other: Father (), Mother Admission Physical Exam BHS - Vital Signs Vital Signs: Vital Signs - 24 hr 05/14/18 08:34 Temperature 97.9 F Pulse Rate 113 H Respiratory 18 Rate Blood Pressure 146/88 - Physical General Appearance: Yes: Moderate Distress, Tremorous, Irritable, Sweating, Anxious HEENTM: Yes: Normal ENT Inspection, RAFA, Pharynx Normal Respiratory: Yes: Lungs Clear, Normal Breath Sounds, No Respiratory Distress Neck: Yes: Within Normal Limits, Supple, Trachea in good position Breast: Yes: Within Normal Limits Cardiology: Yes: Tachycardia Abdominal: Yes: Within Normal Limits, Normal Bowel Sounds, Non Tender, Soft Genitourinary: Yes: Within Normal Limits Back: Yes: Muscle Spasm Musculoskeletal: Yes: Back pain, Muscle Pain Extremities: Yes: Tremors, Other (swelling with ecchymosis left upper arm with pain fx of left humerus wearing immobilization) Neurological: Yes: electronic systems technician II-XII NML intact, Fully Oriented, Alert, Motor Strength 5/5 Integumentary: Yes: Dry Lymphatic: Yes: Within Normal Limits - Diagnostic (1) Alcohol dependence with uncomplicated withdrawal Current Visit: Yes Status: Acute (2) Nicotine dependence Current Visit: Yes Status: Chronic Qualifiers: Nicotine product type: cigarettes Substance use status: in withdrawal Qualified Code(s): F17.213 - Nicotine dependence, cigarettes, with withdrawal (3) DM Diabetes mellitus type 2 Current Visit: No Status: Chronic (4) Schizophrenia Current Visit: Yes Status: Chronic Qualifiers: Schizophrenia type: paranoid schizophrenia Qualified Code(s): F20.0 - Paranoid schizophrenia Comment: By history and records. (5) Closed left humeral fracture Current Visit: Yes Status: Acute Cleared for Admission [facility] - Detox or Rehab [facility] Level of Care: Medically Managed Detox Regimen/Protocol: Librium [facility] Breath Alcohol Content Breath Alcohol Content: 0.006 Urine Drug Screen - Results Drug Screen Negative: No Urine Drug Screen Results: BZO-Benzodiazepines, MTD-Methadone Inpatient Rehab Admission - Rehab Decision to Admit Inpatient rehab admission?: No
[2018-05-14] MEDS ORDERED: hydrOXYzine PAMOATE 25 MG CAPSULE (FP) PO PRN (09:46)
[2018-05-14] MEDS ORDERED: METHOCARBAMOL 500 MG TABLET PO PRN (09:46)
[2018-05-14] MEDS ORDERED: MAGNESIUM CITRATE 300 ML BOTTLE PO PRN (09:46)
[2018-05-14] MEDS ORDERED: chlordiazePOXIDE HCL 10 MG CAPSULE PO PRN (09:46)
[2018-05-14] MEDS ORDERED: ACETAMINOPHEN 325 MG TABLET (FP) PO PRN (09:46)
[2018-05-14] MEDS ORDERED: IBUPROFEN 400 MG TABLET (FP) PO PRN (09:46)
[2018-05-14] MEDS ORDERED: MENTHOL/PHENOL 1 EACH UD MM PRN (09:46)
[2018-05-14] MEDS ORDERED: BISMUTH SUBSALICYLATE 262 MG/15 ML BTL PO PRN (09:46)
[2018-05-14] MEDS ORDERED: MAGNESIUM HYDROX 2400MG/30ML ORAL SUSPENSION 30 ML CUP PO PRN (09:46)
[2018-05-14] MEDS ORDERED: MAG HYDROX/AL HYDROX/SIMETH 30 ML UNIT-DOSE CUP PO PRN (09:46)
[2018-05-14] MEDS: chlordiazePOXIDE HCL 25 MG CAPSULE PO SCH ×2 (13:26→22:59)
[2018-05-14] MEDS: PRENATAL VITAMINS W/ FOLIC ACID TABLET (FP) PO SCH (13:26)
[2018-05-14] MEDS: ACETAMINOPHEN 325 MG TABLET (FP) PO PRN (13:28)
--- NOTE | 2018-05-14 13:32 | CONSULT ---
[facility] Psychiatric Consult - Data Date of interview: 05/14/18 Admission source: [facility] Identifying data: Readmission to [facility] for this [place]-born male ( emig[place] to [place] at age 18) self-referred for detoxification (alcohol). Interviewed on . Patient is , a father of one, domiciled, unemployed and supported on SSI benefits. Substance Abuse History: Confirmed by the patient in this interview. Details in current [facility] report : Smoking history: Current every day smoker. Have you smoked in the past 12 months: Yes. Cigars Per Day: 5. Hx Chewing Tobacco Use: No. Initiated information on smoking cessation: Yes. 'Breaking Loose' booklet given: 05/14/18. - Substance & Tx. History. Hx Alcohol Use: Yes. Hx Substance Use: No. Substance Use Type: Alcohol. Hx Substance Use Treatment: Yes ([facility] 03/03/17 to 03/07/17). - Substances Abused. Alcohol. Route: Oral. Frequency: Daily. Amount used: 1/2 PINT OF VODKA, 2 CANS OF BEER 16OZS. Age of first use: 24. Date of Last Use: 05/12/18 Medical History: History of withdrawal-related seizures and diabetes mellitus. Recent fracture of left humerus from a fall, two weeks prior to this [facility] visit, in the context of ETOH intoxication as per self-report (extremity is supported in a sling). Psychiatric History: In this interview, the patient denies having a psychiatric illness. Tita history of psychiatric hospitalizations. " I disagree with the doctors. I don't have schizophrenia ". 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 He used to be followed at the [facility] (Dr Cedrick Suarez) and maintained on haldol decanoate 75 mg IM monthly. Patient dcelares that he has stopped taking this medication for months. Dropped out of psychiatric OPD care. No reported history of suicide attempts. Physical/Sexual Abuse/Trauma History: Patient denies. Additional Comment: Urine Drug Screen Results: BZO-Benzodiazepines, MTD- Methadone. Noted. Mental Status Exam - Mental Status Exam Alert and Oriented to: Time, Place, Person Cognitive Function: Grossly Intact Patient Appearance: Well Groomed Mood: Nervous Affect: Blunted Patient Behavior: Passive, Fatigued, Guarded, Cooperative Speech Pattern: Clear Voice Loudness: Normal Thought Process: Circumstantial Thought Disorder: Bizarre Hallucinations: Denies Suicidal Ideation: Denies Homicidal Ideation: Denies Insight/Judgement: Poor Sleep: Well Appetite: Good Muscle strength/Tone: Normal Gait/Station: Normal Psychiatric Findings - Problem List ([place] 1, 2,3) (1) Alcohol dependence with uncomplicated withdrawal Current Visit: Yes Status: Acute (2) Nicotine dependence Current Visit: Yes Status: Chronic Qualifiers: Nicotine product type: cigarettes Substance use status: in withdrawal Qualified Code(s): F17.213 - Nicotine dependence, cigarettes, with withdrawal (3) Schizophrenia Current Visit: Yes Status: Chronic Qualifiers: Schizophrenia type: paranoid schizophrenia Qualified Code(s): F20.0 - Paranoid schizophrenia Comment: By history and records. (4) Non-compliant patient Current Visit: Yes Status: Chronic - Initial Treatment Plan Initial Treatment Plan: Psychoeducation. Sleep hygiene. Detoxification. AA meetings. Patient is not receptive to teachings covering methods of relapse prevention (MAT measures) + benefits of adherence to psychiatric OPD care ( medications /psychotherapies) + advantages of sobriety. Declines to resume psychotropic medications with the exception of drugs necessary for ETOH detoxification. Mr Phan is currently asymptomatic for maria elena or psychosis. Observation.
[2018-05-14] MEDS: THIAMINE HCL 100 MG TABLET (FP) PO SCH (22:59)
[2018-05-15] MEDS: chlordiazePOXIDE HCL 25 MG CAPSULE PO SCH (05:15)
[2018-05-15] MEDS: IBUPROFEN 400 MG TABLET (FP) PO PRN ×3 (05:16→22:23)
[2018-05-15 10:19] LABS: HEMATOCRIT 37.8 % (35.4-49); HEMOGLOBIN 13.4 GM/dL (11.7-16.9); MCH 34.5 pg (25.7-33.7); MCHC 35.5 g/dl (32.0-35.9); MEAN CELL VOLUME 97.3 fl (80-96); MEAN PLT VOLUME 9.3 fl (7.5-11.1); PLATELET COUNT 166 K/MM3 (134-434); RBC 3.89 M/mm3 (4.00-5.60); RDW 13.7 % (11.9-15.9); WHITE BLOOD COUNT 5.1 K/mm3 (4.0-10.0)
[2018-05-15] MEDS: PRENATAL VITAMINS W/ FOLIC ACID TABLET (FP) PO SCH (10:28)
[2018-05-15 10:32] LABS: ALBUMIN 3.6 g/dl (3.4-5.0); ALK PHOS 94 U/L (45-117); ANION GAP 7 MMOL/L (8-16); BILIRUBIN,TOTAL 1.4 mg/dL (0.2-1); BLOOD UREA NITROGEN 10 mg/dL (7-18); CALCIUM 8.4 mg/dL (8.5-10.1); CHLORIDE 102 mmol/L (98-107); CO2 27 mmol/L (21-32); GLUCOSE,RANDOM 240 mg/dL (74-106); POTASSIUM 3.7 mmol/L (3.5-5.1); SGOT/AST 18 U/L (15-37); SGPT/ALT 33 U/L (13-61); SODIUM 136 mmol/L (136-145); TOT PROT 6.9 g/dl (6.4-8.2)
[2018-05-15] MEDS: chlordiazePOXIDE 5 MG CAPSULE PO SCH ×2 (13:25→22:22)
--- NOTE | 2018-05-15 15:04 | PN ---
S CIWA - CIWA Score Nausea/Vomitin-No Nausea/No Vomiting Muscle Tremors: 3 Anxiety: 1-Mildly Anxious Agitation: 0-Normal Activity Paroxysmal Sweats: 3 Orientation: 0-Oriented Tacttile Disturbances: 2-Mild Itch/Numbness/Burn Auditory Disturbances: 0-None Visual Disturbances: 3-Moderate Sensitivity Headache: 0-None Present CIWA-Ar Total Score: 12 BHS Progress Note (SOAP) Subjective: Body Aches, Anxious, Interrupted Sleep. Objective: PATIENT A & O X 3, OBSERVED AMBULATING ON UNIT. IN NO ACUTE DISTRESS. 05/15/18 15:06 Vital Signs Temperature 97.6 F 05/15/18 13:48 Pulse Rate 116 H 05/15/18 13:48 Respiratory Rate 18 05/15/18 13:48 Blood Pressure 128/82 05/15/18 13:48 O2 Sat by Pulse Oximetry (%) Laboratory Tests 05/14/18 05/14/18 05/15/18 09:15 16:22 05:14 WBC RBC Hgb Hct MCV MCH MCHC RDW Plt Count MPV Sodium Potassium Chloride Carbon Dioxide Anion Gap BUN Creatinine Creat Clearance w eGFR POC Glucometer 244 269 198 Random Glucose Calcium Total Bilirubin AST ALT Alkaline Phosphatase Total Protein Albumin 05/15/18 05/15/18 05:30 05:30 WBC 5.1 RBC 3.89 L Hgb 13.4 Hct 37.8 D MCV 97.3 H MCH 34.5 H MCHC 35.5 RDW 13.7 Plt Count 166 MPV 9.3 D Sodium 136 Potassium 3.7 Chloride 102 Carbon Dioxide 27 Anion Gap 7 L BUN 10 Creatinine 1.0 Creat Clearance w eGFR > 60 POC Glucometer Random Glucose 240 H Calcium 8.4 L Total Bilirubin 1.4 H AST 18 ALT 33 Alkaline Phosphatase 94 Total Protein 6.9 Albumin 3.6 LABS NOTED. Assessment: 05/15/18 15:06 WITHDRAWAL SYMPTOMS. Plan: CONTINUE DETOX.
[2018-05-15] MEDS: THIAMINE HCL 100 MG TABLET (FP) PO SCH (22:22)
[2018-05-15] MEDS: MELATONIN 5 MG TABLETS PO PRN (22:24)
[2018-05-16] MEDS: chlordiazePOXIDE 5 MG CAPSULE PO SCH (05:46)
[2018-05-16] MEDS: IBUPROFEN 400 MG TABLET (FP) PO PRN ×2 (05:47→13:19)
[2018-05-16] MEDS: PRENATAL VITAMINS W/ FOLIC ACID TABLET (FP) PO SCH (10:25)
[2018-05-16] MEDS: ACETAMINOPHEN 325 MG TABLET (FP) PO PRN (10:27)
--- NOTE | 2018-05-16 11:43 | PN ---
S CIWA - CIWA Score Nausea/Vomitin-No Nausea/No Vomiting Muscle Tremors: 2 Anxiety: 1-Mildly Anxious Agitation: 2 Paroxysmal Sweats: 1-Minimal Palms Moist Orientation: 0-Oriented Tacttile Disturbances: 0-None Auditory Disturbances: 0-None Visual Disturbances: 0-None Headache: 1-Very Mild CIWA-Ar Total Score: 7 S Progress Note (SOAP) Subjective: feeling better today mild tremor less sweat ambulating on hallway left arm sling in place right hand fingers full range of motion mild swell bruises noted under axillary patient fell on "Thursday" treated at [facility] discharge to [facility] for alcohol detox patient is able to off sling for shower Objective: 05/16/18 11:45 Vital Signs Temperature 98.4 F 05/16/18 09:29 Pulse Rate 108 H 05/16/18 09:29 Respiratory Rate 20 05/16/18 09:29 Blood Pressure 121/70 05/16/18 09:29 O2 Sat by Pulse Oximetry (%) Laboratory Last Values WBC 5.1 K/mm3 (4.0-10.0) 05/15/18 05:30 RBC 3.89 M/mm3 (4.00-5.60) L 05/15/18 05:30 Hgb 13.4 GM/dL (11.7-16.9) 05/15/18 05:30 Hct 37.8 % (35.4-49) D 05/15/18 05:30 MCV 97.3 fl (80-96) H 05/15/18 05:30 MCH 34.5 pg (25.7-33.7) H 05/15/18 05:30 MCHC 35.5 g/dl (32.0-35.9) 05/15/18 05:30 RDW 13.7 % (11.9-15.9) 05/15/18 05:30 Plt Count 166 K/MM3 (134-434) 05/15/18 05:30 MPV 9.3 fl (7.5-11.1) D 05/15/18 05:30 Sodium 136 mmol/L (136-145) 05/15/18 05:30 Potassium 3.7 mmol/L (3.5-5.1) 05/15/18 05:30 Chloride 102 mmol/L (98-107) 05/15/18 05:30 Carbon Dioxide 27 mmol/L (21-32) 05/15/18 05:30 Anion Gap 7 MMOL/L (8-16) L 05/15/18 05:30 BUN 10 mg/dL (7-18) 05/15/18 05:30 Creatinine 1.0 mg/dL (0.55-1.3) 05/15/18 05:30 Creat Clearance w eGFR > 60 (>60) 05/15/18 05:30 POC Glucometer 222 UNITS (80-120) 05/16/18 05:46 Random Glucose 240 mg/dL (74-106) H 05/15/18 05:30 Calcium 8.4 mg/dL (8.5-10.1) L 05/15/18 05:30 Total Bilirubin 1.4 mg/dL (0.2-1) H 05/15/18 05:30 AST 18 U/L (15-37) 05/15/18 05:30 ALT 33 U/L (13-61) 05/15/18 05:30 Alkaline Phosphatase 94 U/L (45-117) 05/15/18 05:30 Total Protein 6.9 g/dl (6.4-8.2) 05/15/18 05:30 Albumin 3.6 g/dl (3.4-5.0) 05/15/18 05:30 RPR Titer Nonreactive (NONREACTIVE) 05/15/18 05:30 lab noted Assessment: 05/16/18 11:45 mild alcohol withdrawal sx Plan: continue detox
[2018-05-16] MEDS ORDERED: chlordiazePOXIDE HCL 10 MG CAPSULE PO PRN (13:00)
[2018-05-16] MEDS: chlordiazePOXIDE HCL 10 MG CAPSULE PO SCH ×2 (13:16→22:23)
[2018-05-16] MEDS: guaiFENesin 600 MG TABLET.ER (FP) PO SCH ×2 (13:36→22:24)
[2018-05-16] MEDS: MELATONIN 5 MG TABLETS PO PRN (22:23)
[2018-05-16] MEDS: THIAMINE HCL 100 MG TABLET (FP) PO SCH (22:24)
[2018-05-17] MEDS: IBUPROFEN 400 MG TABLET (FP) PO PRN (00:59)
[2018-05-17] MEDS: ACETAMINOPHEN 325 MG TABLET (FP) PO PRN (05:09)
[2018-05-17] MEDS: chlordiazePOXIDE HCL 10 MG CAPSULE PO SCH (05:09)
[2018-05-17 06:29] VITALS: BP 117/72; PULSE 83; TEMP 97.3
--- NOTE | 2018-05-17 14:38 | DS ---
[facility] Detox Discharge Summary Admission Date: 05/14/18 Discharge Date: 05/17/18 - History Present History: Alcohol Dependence Additional Comments: 62 years old male admitted on 05/14/18 for alcohol withdrawal stabilization [facility] Physical Exam Results Vital Signs: Vital Signs Temperature 97.3 F L 05/17/18 06:28 Pulse Rate 83 05/17/18 06:28 Respiratory Rate 18 05/17/18 06:28 Blood Pressure 117/72 05/17/18 06:28 O2 Sat by Pulse Oximetry (%) Pertinent Admission Physical Exam Findings: alcohol withdrawal sx Laboratory Last Values WBC 5.1 K/mm3 (4.0-10.0) 05/15/18 05:30 RBC 3.89 M/mm3 (4.00-5.60) L 05/15/18 05:30 Hgb 13.4 GM/dL (11.7-16.9) 05/15/18 05:30 Hct 37.8 % (35.4-49) D 05/15/18 05:30 MCV 97.3 fl (80-96) H 05/15/18 05:30 MCH 34.5 pg (25.7-33.7) H 05/15/18 05:30 MCHC 35.5 g/dl (32.0-35.9) 05/15/18 05:30 RDW 13.7 % (11.9-15.9) 05/15/18 05:30 Plt Count 166 K/MM3 (134-434) 05/15/18 05:30 MPV 9.3 fl (7.5-11.1) D 05/15/18 05:30 Sodium 136 mmol/L (136-145) 05/15/18 05:30 Potassium 3.7 mmol/L (3.5-5.1) 05/15/18 05:30 Chloride 102 mmol/L (98-107) 05/15/18 05:30 Carbon Dioxide 27 mmol/L (21-32) 05/15/18 05:30 Anion Gap 7 MMOL/L (8-16) L 05/15/18 05:30 BUN 10 mg/dL (7-18) 05/15/18 05:30 Creatinine 1.0 mg/dL (0.55-1.3) 05/15/18 05:30 Creat Clearance w eGFR > 60 (>60) 05/15/18 05:30 POC Glucometer 249 UNITS (80-120) 05/17/18 05:08 Random Glucose 240 mg/dL (74-106) H 05/15/18 05:30 Calcium 8.4 mg/dL (8.5-10.1) L 05/15/18 05:30 Total Bilirubin 1.4 mg/dL (0.2-1) H 05/15/18 05:30 AST 18 U/L (15-37) 05/15/18 05:30 ALT 33 U/L (13-61) 05/15/18 05:30 Alkaline Phosphatase 94 U/L (45-117) 05/15/18 05:30 Total Protein 6.9 g/dl (6.4-8.2) 05/15/18 05:30 Albumin 3.6 g/dl (3.4-5.0) 05/15/18 05:30 RPR Titer Nonreactive (NONREACTIVE) 05/15/18 05:30 lab noted - Treatment Hospital Course: Detox Protocol Followed, Detoxed Safely, Responded well, Discharged Condition Good, Rehab Referral Accepted Patient has Accepted a Rehab Referral to: [facility] - Medication Discharge Medications: Ambulatory Orders NK [No Known Home Medication] 05/14/18 - Diagnosis (1) Alcohol dependence with uncomplicated withdrawal Status: Acute (2) DM Diabetes mellitus type 2 Status: Chronic (3) Essential hypertension Status: Chronic (4) Hyperlipidemia Status: Chronic Qualifiers: Hyperlipidemia type: pure hypercholesterolemia Qualified Code(s): E78.00 - Pure hypercholesterolemia, unspecified; E78.0 - Pure hypercholesterolemia (5) Nicotine dependence Status: Acute Qualifiers: Nicotine product type: cigarettes Substance use status: in withdrawal Qualified Code(s): F17.213 - Nicotine dependence, cigarettes, with withdrawal - AMA Did Patient Leave Against Medical Advice: No
== END 2018-05-17 09:00 | disposition home or self-care (01) | DRG 775 ==
LOC: YASAS 08:12 → Y3N 09:50
PROVIDERS: ADMIT Surgery; ATTEND Surgery
PROC: HZ2ZZZZ Detoxification Services for Substance Abuse Treatment (ICD-10-PCS; principal; 2018-05-14)
DX: F10.230 Alcohol dependence with withdrawal, uncomplicated (principal); F17.210 Nicotine dependence, cigarettes, uncomplicated; F20.0 Paranoid schizophrenia; E11.9 Type 2 diabetes mellitus without complications; G40.509 Epileptic seizures related to external causes, not intractable, without status epilepticus; R76.11 Nonspecific reaction to tuberculin skin test without active tuberculosis; S42.302D Unspecified fracture of shaft of humerus, left arm, subsequent encounter for fracture with routine healing; Z91.81 History of falling; Z91.14 Patient's other noncompliance with medication regimen
CPT/HCPCS: 36415; 80053; 82962; 85027; 86593

== ENCOUNTER 2018-09-08 14:32 | Emergency (ER) | payer OTHER ==
[2018-09-08 14:48] VITALS: BP 137/85; PULSE 110; TEMP 98.1; BMI 24.3
--- NOTE | 2018-09-08 14:58 | PDOC ---
History of Present Illness <Marciano Eckert - Last Filed: 09/08/18 18:13> - History of Present Illness Initial Comments: Kane Phan is a 62yo man with a PMH of HTN, HLD, NIDDM, and alcohol dependence w/ multiple admissions to detox and rehab who was BIBA for alcohol intoxication. Per EMS, Mr Phan lives at home with family. The family called for him to be brought to the ED because he has been drinking for several days. The pt states that "the spring encaser called an ambulance" because he had "half a pint of vodka" this morning. He says that he drinks 1/2 pint whenever he has enough money, usually 3-4 times per week, often in the morning. He says that there is no need for him to be here currently because he feels fine; he has no interest in detox today. <Cristina Azul - Last Filed: 09/08/18 23:58> - General Chief Complaint: Alcohol intoxication Stated Complaint: INTOXICATION Time Seen by Provider: 09/08/18 14:57 Past History <Marciano Eckert - Last Filed: 09/08/18 18:13> - Past Medical History Anemia: No Asthma: No Cancer: No Cardiac Disorders: No CVA: No COPD: No CHF: No Dementia: No Diabetes: Yes (NOT ON MEDICATIONS) GI Disorders: No Disorders: No HTN: No Hypercholesterolemia: No Kidney Stones: No Liver Disease: No Seizures: No Thyroid Disease: No - Surgical History Abdominal Surgery: No Appendectomy: No Cardiac Surgery: No Cholecystectomy: No Lung Surgery: No Neurologic Surgery: No Orthopedic Surgery: No - Reproductive History Testicular Surgery: No - Suicide/Smoking/Psychosocial Hx Smoking History: Current every day smoker Have you smoked in the past 12 months: Yes Number of Cigarettes Smoked Daily: 10 If you are a former smoker, when did you quit?: 5 Cigars Per Day: 5 Information on smoking cessation initiated: Yes 'Breaking Loose' booklet given: 05/14/18 Hx Alcohol Use: Yes Drug/Substance Use Hx: No Substance Use Type: Alcohol Hx Substance Use Treatment: Yes ([facility] 03/03/17 to 03/07/17) <Cristina Azul - Last Filed: 09/08/18 23:58> - Past Medical History Allergies/Adverse Reactions: Allergies Allergy/AdvReac Type Severity Reaction Status Date / Time No Known Allergies Allergy Verified 05/14/18 08:50 Home Medications: Ambulatory Orders NK [No Known Home Medication] 05/14/18 Review of Systems - Review of Systems Comments:: General: No fevers, no chills, no weight or appetite change, no malaise HEENT: No changes in vision, no changes in hearing, no congestion, no sore throat CV: No chest pain, no palpitations, no LE edema Pulm: No SOB, no cough, no wheezing GI: No nausea or vomiting, no change in bowel habits, no melena : No frequency, no urgency, no dysuria Musc: No back pain, no joint swelling, no recent injury Skin: No rash, no lesions, no erythema Endo: No excessive thirst, no heat/cold intolerance Heme: No unusual bruising or bleeding, no swollen glands Neuro: No syncope, no numbness/tingling, no focal weakness Vasc: No claudication Psych: No recent change in mood, no SI or HI <Cristina Azul - Last Filed: 09/08/18 23:58> *Physical Exam - Vital Signs Last Vital Signs Temp Pulse Resp BP Pulse Ox 98.1 F 110 H 20 137/85 93 L 09/08/18 14:45 09/08/18 14:45 09/08/18 14:45 09/08/18 14:45 09/08/18 14:45 <Marciano Eckert - Last Filed: 09/08/18 18:13> - Vital Signs Last Vital Signs Temp Pulse Resp BP Pulse Ox 98.1 F 110 H 20 137/85 93 L 09/08/18 14:45 09/08/18 14:45 09/08/18 14:45 09/08/18 14:45 09/08/18 14:45 - Physical Exam Comments: General: Comfortable, no acute distress. Smells of alcohol HEENT: PERRL, EOMI, no nystagmus, dry mouth and tongue, normal speech, neck ROM intact Cards: RRR, no murmur appreciated Pulm: Comfortable on room air, clear to auscultation bilaterally Abd: Soft, nontender, nondistended Ext: Atraumatic. No LE edema. ROM intact Vasc: Extremities WWP Skin: Normal color, no rashes or lesions Neuro: Intoxicated but awake and alert, appropriate answers, CN grossly intact, normal speech, motor/sensory grossly intact and symmetric. No ataxia on finger- nose, rapid alternating movements, or heel-mccracken testing. Psych: Mood appropriate to situation <Cristina Azul - Last Filed: 09/08/18 23:58> ED Treatment Course - LABORATORY CBC & Chemistry Diagram: 09/08/18 15:51 09/08/18 15:51 - ADDITIONAL ORDERS Additional order review: Laboratory Results 09/08/18 09/08/18 15:51 15:51 Sodium 139 Potassium 3.9 Chloride 105 Carbon Dioxide 27 Anion Gap 7 L BUN 6.5 L Creatinine 0.9 Est GFR (CKD-EPI)AfAm 104.98 Est GFR (CKD-EPI)NonAf 90.58 Random Glucose 134 H Calcium 9.1 Total Bilirubin 0.4 AST 17 ALT 20 Alkaline Phosphatase 148 H Total Protein 7.4 Albumin 3.8 Urine Color Yellow Urine Appearance Clear Urine pH 6.0 Ur Specific Mcbee 1.002 L Urine Protein Negative Urine Glucose (UA) Negative Urine Ketones Negative Urine Blood Negative Urine Nitrite Negative Urine Bilirubin Negative Urine Urobilinogen 0.2 Ur Leukocyte Esterase Negative Alcohol, Quantitative 144.8 H 09/08/18 15:51 RBC 5.64 H MCV 90.5 MCHC 33.3 RDW 14.9 MPV 7.9 D Neutrophils % 46.4 D Lymphocytes % 41.6 H D Monocytes % 11.0 H Eosinophils % 0.6 D Basophils % 0.4 - Medications Given in the ED: ED Medications Discontinued Medications Generic Name Dose Route Start Last Admin Trade Name Payton PRN Reason Stop Dose Admin Chlordiazepoxide HCl 50 mg 09/08/18 15:50 09/08/18 16:11 Librium - PO 09/08/18 15:51 50 mg ONCE ONE Administration <Marciano Eckert - Last Filed: 09/08/18 18:13> - LABORATORY CBC & Chemistry Diagram: 09/08/18 15:51 09/08/18 15:51 <Cristina Azul - Last Filed: 09/08/18 23:58> Medical Decision Making - Medical Decision Making 09/08/18 15:32 Kane Phan is a 62yo man with a PMH of HTN, HLD, NIDDM, and alcohol dependence w/ multiple admissions to detox and rehab who was BIBA for alcohol intoxication. He reports a history of drinking 3-4 times per week and has been in rehab previous, but he does not feel that he needs any detox or rehab today. He states that he feels that he is ready to go home. - Appears intoxicated, but alert and oriented with no ataxia. Observed ambulating - Dry mouth and mild tachycardia, likely dehydrated - CBC, CMP, alcohol level, UA - Banana bag and librium given h/o withdrawal and seizures 09/08/18 16:30 - Pt is not in his room. Will attempt to locate 09/08/18 17:28 - Patient could not be located. Discussed with security - Labs w/o concerning abnormalities. Alcohol 145. - Police contacted as pt had an IV in place 09/08/18 18:36 - Patient has not yet been returned to the ED by police. However, police were called both by [facility] and by the pt's nurse. They are aware that Mr Phan had an IV in place. - Aside from IV, patient was able to ambulate safely, was awake and alert, and was likely appropriate for discharge. Discussed with Aric Eckert and Pavithra. Cristina Azul PGY2 <Cristina Azul - Last Filed: 09/08/18 23:58> *DC/Admit/Observation/Transfer <Marciano Eckert - Last Filed: 09/08/18 18:13> <Cristina Azul - Last Filed: 09/08/18 23:58> Diagnosis at time of Disposition: Alcohol abuse - Discharge Dispostion Disposition: ELOPED
[2018-09-08] MEDS ORDERED: chlordiazePOXIDE HCL 25 MG CAPSULE PO ONE (15:50)
[2018-09-08] MEDS ORDERED: NICOTINE 14 MG/24 HOURS TOPICAL PATCH TD SCH (16:00)
[2018-09-08 16:03] LABS: BASO % 0.4 % (0-2.0); EOS % 0.6 % (0-4.5); HEMATOCRIT 51.1 % (35.4-49); LYMPH % 41.6 % (8-40); MCH 30.1 pg (25.7-33.7); MCHC 33.3 g/dl (32.0-35.9); MEAN CELL VOLUME 90.5 fl (80-96); MEAN PLT VOLUME 7.9 fl (7.5-11.1); NEUT % 46.4 % (42.8-82.8); PLATELET COUNT 187 K/MM3 (134-434); RBC 5.64 M/mm3 (4.00-5.60); RDW 14.9 % (11.9-15.9); URINE APPEARANCE CLEAR; URINE BILIRUBIN NEGATIVE (NEGATIVE); URINE COLOR YELLOW; URINE GLUCOSE (UA) NEGATIVE (NEGATIVE); URINE KETONE NEGATIVE (NEGATIVE); URINE LEUK ESTERASE NEGATIVE (NEGATIVE); URINE NITRITE NEGATIVE (NEGATIVE); URINE PROTEIN NEGATIVE (NEGATIVE); URINE UROBILINOGEN 0.2 mg/dL (0.2-1.0); WHITE BLOOD COUNT 4.5 K/mm3 (4.0-10.0)
[2018-09-08] MEDS ORDERED: chlordiazePOXIDE HCL 25 MG CAPSULE ONE (16:07)
[2018-09-08 16:22] LABS: ALBUMIN 3.8 g/dl (3.4-5.0); BILIRUBIN,TOTAL 0.4 mg/dL (0.2-1); BLOOD UREA NITROGEN 6.5 mg/dL (7-18); CALCIUM 9.1 mg/dL (8.5-10.1); CREATININE 0.9 mg/dL (0.55-1.3); POTASSIUM 3.9 mmol/L (3.5-5.1); TOT PROT 7.4 g/dl (6.4-8.2)
--- NOTE | 2018-09-08 17:57 | PDOC ---
Documentation entered by Felicitas Nicholson SCRIBE, acting as scribe for Marciano Eckert MD. Marciano Eckert MD: This documentation has been prepared by the Lyn martin Sammi, SCRIBE, under my direction and personally reviewed by me in its entirety. I confirm that the documentation accurately reflects all work, treatment, procedures, and medical decision making performed by me. Attending Attestation - Resident Resident Name: Cristina Azul - ED Attending Attestation I have performed the following: I have examined & evaluated the patient, The case was reviewed & discussed with the resident, I agree w/resident's findings & plan, Exceptions are as noted - HPI HPI: 09/08/18 16:46 The patient is a 62 year old male, with a significant PMH of HLD, HTN, NIDDM, alcohol abuse, who was BIBA to the emergency department for evaluation of intoxication. The patient denies any complaints. EMS states the patients family called EMS as the patient has been constantly drinking for several days. Denies drug use Denies associated fevers, chills, cp, sob, headache, focal weakness/numbness, abd pain, LE edema, trauma, rashes, urinary sxs. Allergies: NKA - Physicial Exam PE: 09/08/18 16:47 GENERAL: Awake, alert, and fully oriented, in no acute distress. Clinically sober, ambulating in ED with steady gait. HEAD: No signs of trauma EYES: PERRLA, EOMI, sclera anicteric, conjunctiva clear ENT: Auricles normal inspection, hearing grossly normal, nares patent, oropharynx clear without exudates. Moist mucosa NECK: Normal ROM, supple, no lymphadenopathy, JVD, or masses LUNGS: Breath sounds equal, clear to auscultation bilaterally. No wheezes, and no crackles HEART: Regular rate and rhythm, normal S1 and S2, no murmurs, rubs or gallops ABDOMEN: Soft, nontender, normoactive bowel sounds. No guarding, no rebound. No masses EXTREMITIES: Normal range of motion, no edema. No clubbing or cyanosis. No cords , erythema, or tenderness BACK: No midline spinal tenderness in cervical/thoracic/lumbar region NEUROLOGICAL: Normal speech, cranial nerves intact, negative pronator drift, 5/ 5 strength in all 4 extremities, normal sensation to light touch in all 4 extremities, normal cerebellar exam, normal gait, normal reflexes and tone SKIN: Warm, Dry, normal turgor, no rashes or lesions noted. - Medical Decision Making 09/08/18 17:48 62yo M presents to the ED with concern for intoxication HR initially 110, on my eval 92. Remaining vitals wnl Pt clinically sober in the ED, ambulating with steady gait No trauma on head to toe exam While awaiting lab results, pt eloped with the IV Security notified and will call PD Listed number is non working No family to call (family called 911 given pt has been drinking more than usual) Labs reviewed, etoh level 140s, however clincially pt was already sober at this level (likely 2/2 chronic etoh abuse) Address located for pt, PD notified and will attempt contact for the patient
== END 2018-09-08 18:53 | disposition home or self-care (01) ==
LOC: JER 14:32
DX: F10.120 Alcohol abuse with intoxication, uncomplicated (principal); I10 Essential (primary) hypertension; E78.5 Hyperlipidemia, unspecified; E11.9 Type 2 diabetes mellitus without complications; F17.210 Nicotine dependence, cigarettes, uncomplicated
CPT/HCPCS: 36415; 80053; 80307; 81003; 85025; 99282-25

== ENCOUNTER 2018-09-10 14:00 | Inpatient (IN) | payer OTHER ==
[2018-09-10 15:08] VITALS: BMI 24.7
--- NOTE | 2018-09-10 16:19 | HP ---
CIWA Score Nausea/Vomitin-No Nausea/No Vomiting Muscle Tremors: 7-Severe,w/o Arm Extended Anxiety: 0-No Anxiety, at Ease Agitation: 4-Moderately Restless Paroxysmal Sweats: 4-Forehead w/Sweat Beads Orientation: 0-Oriented Tacttile Disturbances: 0-None Auditory Disturbances: 0-None Visual Disturbances: 0-None Headache: 2-Mild CIWA-Ar Total Score: 17 - Admission Criteria OASAS Guidelines: Admission for Medically Managed Detox: Requires at least one of the followin. CIWA greater than 12 2. Seizures within the past 24 hours 3. Delirium tremens within the past 24 hours 4. Hallucinations within the past 24 hours 5. Acute intervention needed for co occurring medical disorder 6. Acute intervention needed for co occurring psychiatric disorder 7. Severe withdrawal that cannot be handled at a lower level of care (continued vomiting, continued diarrhea, abnormal vital signs) requiring intravenous medication and/or fluids 8. Admission ROS BHS - HPI Allergies/Adverse Reactions: Allergies Allergy/AdvReac Type Severity Reaction Status Date / Time No Known Allergies Allergy Verified 09/10/18 15:04 History of Present Illness: pt here requesting detox from etoh use , reports 2 beers x 24 oz in the mornings and 1 pint of vodka in the afternoons, current symptoms as above, was @ [facility] yesterday for similar symptoms, latest use this morning . pmhx : denies pshx : denies meds : denies Exam Limitations: Clinical Condition - Ebola screening Have you traveled outside of the country in the last 21 days: No Have you had contact with anyone from an Ebola affected area: No Do you have a fever: No - Review of Systems Constitutional: No Symptoms Reported EENT: reports: Other (glasses) Respiratory: reports: No Symptoms reported Cardiac: reports: No Symptoms Reported GI: reports: No Symptoms Reported : reports: No Symptoms Reported Musculoskeletal: reports: No Symptoms Reported Integumentary: reports: Bruising (r leg - does not recall recent injury) Neuro: reports: See HPI, Headache Endocrine: reports: No Symptoms Reported Psychiatric: reports: Orientated x3, Agitated Patient History - Patient Medical History Hx Anemia: No Hx Asthma: No Hx Chronic Obstructive Pulmonary Disease (COPD): No Hx Cancer: No Hx Cardiac Disorders: No Hx Congestive Heart Failure: No Hx Hypertension: No Hx Hypercholesterolemia: No Hx Pacemaker: No HX Cerebrovascular Accident: No Hx Seizures: No Hx Dementia: No Hx Diabetes: Yes (NOT ON MEDICATIONS) Hx Gastrointestinal Disorders: No Hx Liver Disease: No Hx Genitourinary Disorders: No Hx Sexually Transmitted Disorders: No Hx Renal Disease (ESRD): No Hx Thyroid Disease: No Hx Human Immunodeficiency Virus (HIV): No (never been tested for hiv) Hx Hepatitis C: No Hx Depression: No Hx Suicide Attempt: No Hx Bipolar Disorder: No Hx Schizophrenia: Yes (no med) - Patient Surgical History Past Surgical History: No Hx Neurologic Surgery: No Hx Cataract Extraction: No Hx Cardiac Surgery: No Hx Lung Surgery: No Hx Breast Surgery: No Hx Breast Biopsy: No Hx Abdominal Surgery: No Hx Appendectomy: No Hx Cholecystectomy: No Hx Genitourinary Surgery: No Hx Section: No Hx Orthopedic Surgery: No Anesthesia Reaction: No - PPD History Results: cxray(-)02/2016 - Smoking Cessation Smoking history: Current every day smoker Have you smoked in the past 12 months: Yes Aproximately how many cigarettes per day: 10 If you are a former smoker, when did you quit?: 5 Cigars Per Day: 5 Hx Chewing Tobacco Use: No Initiated information on smoking cessation: No - Substances abused Alcohol Substance route: Oral Frequency: Daily Amount used: 2/24OZ CANS, 1/2PINT VODKA Age of first use: 19 Date of last use: 09/10/18 Family Disease History - Family Disease History Family Disease History: Other: Father (), Mother Admission Physical Exam S - Vital Signs Vital Signs: Vital Signs - 24 hr 09/10/18 14:58 Temperature 99.4 F Pulse Rate 105 H Respiratory 18 Rate Blood Pressure 146/94 - Physical General Appearance: Yes: Moderate Distress, Severe Distress, Tremorous, Sweating HEENTM: Yes: Hearing grossly Normal, Normocephalic, Normal Voice Respiratory: Yes: Lungs Clear, Normal Breath Sounds, No Respiratory Distress, No Accessory Muscle Use Neck: Yes: No masses,lesions,Nodules, Trachea in good position Cardiology: Yes: Regular Rhythm, Regular Rate, S1, S2, Tachycardia Abdominal: Yes: Non Tender, Soft Back: Yes: Normal Inspection Musculoskeletal: Yes: Gait Steady Extremities: Yes: Normal Range of Motion, Non-Tender, Tremors Neurological: Yes: Fully Oriented, Alert, Motor Strength 5/5, Normal Mood/Affect Integumentary: Yes: Warm, Other (ecchymosis r lateral calf) - Diagnostic (1) Alcohol dependence with uncomplicated withdrawal Current Visit: Yes Status: Acute (2) Nicotine dependence Current Visit: Yes Status: Acute Qualifiers: Nicotine product type: other Breathalyzer - Breathalyzer Breathalyzer: 0 Urine Drug Screen - Test Device Lot number: [id number] Expiration date: 05/06/20 - Control Is test valid?: Yes - Results Drug screen NEGATIVE: No Urine drug screen results: THC-Marijuana, BZO-Benzodiazepines Inpatient Rehab Admission - Rehab Decision to Admit Inpatient rehab admission?: No
[2018-09-10] MEDS ORDERED: chlordiazePOXIDE HCL 25 MG CAPSULE PO PRN (16:31)
[2018-09-10] MEDS ORDERED: ACETAMINOPHEN 325 MG TABLET (FP) PO PRN ×2 (16:31)
[2018-09-10] MEDS ORDERED: MAG HYDROX/AL HYDROX/SIMETH 30 ML UNIT-DOSE CUP PO PRN (16:31)
[2018-09-10] MEDS ORDERED: BISMUTH SUBSALICYLATE 524 MG/30 ML UD PO PRN (16:31)
[2018-09-10] MEDS ORDERED: IBUPROFEN 400 MG TABLET (FP) PO PRN (16:31)
[2018-09-10] MEDS ORDERED: MAGNESIUM CITRATE 300 ML BOTTLE PO PRN (16:31)
[2018-09-10] MEDS ORDERED: MAGNESIUM HYDROX 2400MG/30ML ORAL SUSPENSION 30 ML CUP PO PRN (16:31)
[2018-09-10] MEDS ORDERED: hydrOXYzine PAMOATE 25 MG CAPSULE (FP) PO PRN (16:31)
[2018-09-10] MEDS ORDERED: MENTHOL/PHENOL 1 EACH UD MM PRN (16:31)
[2018-09-10] MEDS: chlordiazePOXIDE HCL 25 MG CAPSULE PO SCH ×2 (18:09→22:20)
[2018-09-10] MEDS: THIAMINE HCL 100 MG TABLET (FP) PO SCH (22:20)
[2018-09-10] MEDS: MELATONIN 5 MG TABLETS PO PRN (22:22)
[2018-09-11] MEDS: chlordiazePOXIDE HCL 25 MG CAPSULE PO SCH ×4 (05:26→23:36)
--- NOTE | 2018-09-11 11:12 | PN ---
S CIWA - CIWA Score Nausea/Vomitin-No Nausea/No Vomiting Muscle Tremors: 2 Anxiety: 2 Agitation: 2 Paroxysmal Sweats: 3 Orientation: 0-Oriented Tacttile Disturbances: 0-None Auditory Disturbances: 0-None Visual Disturbances: 0-None Headache: 2-Mild CIWA-Ar Total Score: 11 S Progress Note (SOAP) Subjective: c/o sweats, anxiety, headache, and shakes. Objective: 09/11/18 11:11 Vital Signs 09/11/18 09/11/18 07:51 09:31 Temperature 97.9 F 98.1 F Pulse Rate 80 100 H Respiratory 18 17 Rate Blood Pressure 136/89 140/89 Labs pending. Assessment: 09/11/18 11:11 AOX3, in no acute respiratory distress. Full ROM, ambulating in the unit. withdrawal symptoms Plan: continue detox.
[2018-09-11] MEDS: PRENATAL VITAMINS W/ FOLIC ACID TABLET (FP) PO SCH (11:15)
[2018-09-11] MEDS: THIAMINE HCL 100 MG TABLET (FP) PO SCH (23:36)
[2018-09-12] MEDS: chlordiazePOXIDE HCL 25 MG CAPSULE PO SCH ×4 (05:30→23:22)
[2018-09-12] MEDS: PRENATAL VITAMINS W/ FOLIC ACID TABLET (FP) PO SCH (10:12)
--- NOTE | 2018-09-12 15:51 | PN ---
S CIWA - CIWA Score Nausea/Vomitin-No Nausea/No Vomiting Muscle Tremors: 2 Anxiety: 2 Agitation: 1-Slight > Activity Paroxysmal Sweats: 2 Orientation: 0-Oriented Tacttile Disturbances: 2-Mild Itch/Numbness/Burn Auditory Disturbances: 1-Very Mild Visual Disturbances: 0-None Headache: 0-None Present CIWA-Ar Total Score: 10 BHS Progress Note (SOAP) Subjective: Sweating, Tremors. Objective: PATIENT A & O X 3, OBSERVED AMBULATING ON UNIT UNASSISTED. IN NO ACUTE DISTRESS. 09/12/18 15:50 Vital Signs Temperature 97.2 F L 09/12/18 13:19 Pulse Rate 104 H 09/12/18 13:19 Respiratory Rate 17 09/12/18 13:19 Blood Pressure 122/75 09/12/18 13:19 O2 Sat by Pulse Oximetry (%) Laboratory Tests 09/11/18 08:00 RPR Titer Nonreactive LABS NOTED. Assessment: 09/12/18 15:53 WITHDRAWAL SYMPTOMS. HYPERGLYCEMIA. Plan: CONTINUE DETOX. INCREASE DAILY PO WATER INTAKE. PATIENT ADVISED TO FOLLOW-UP WITH SCHOOL COORDINATOR AFTER DISCHARGE FROM DETOX FOR GENERAL MEDICAL ASSESSMENT AND FOR ELEVATED GLUCOSE LEVELS NOTED ON DETOX ADMISSION LABORATORY ASSESSMENT. PATIENT VERBALIZED UNDERSTANDING OF RECOMMENDATION. COPIES OF RESULTS OF ALL LABS DRAWN WHILE ADMITTED FOR DETOX GIVEN TO PATIENT AT TIME OF DISCHARGE FROM DETOX UNIT.
[2018-09-12] MEDS: THIAMINE HCL 100 MG TABLET (FP) PO SCH (23:22)
[2018-09-12] MEDS: MELATONIN 5 MG TABLETS PO PRN (23:22)
[2018-09-12] MEDS ORDERED: guaiFENesin/CODEINE 10 ML UNIT-DOSE CUPS PO PRN (23:56)
[2018-09-13] MEDS ORDERED: chlordiazePOXIDE HCL 10 MG CAPSULE PO PRN
[2018-09-13] MEDS ORDERED: guaiFENesin/D-METHORPHAN HB 10 ML UNIT-DOSE CUPS PO PRN (00:27)
[2018-09-13] MEDS: chlordiazePOXIDE HCL 10 MG CAPSULE PO SCH ×4 (05:50→22:18)
[2018-09-13] MEDS ORDERED: guaiFENesin 200 MG/10 ML 10 ML UNIT-DOSE CUPS PO PRN (08:30)
--- NOTE | 2018-09-13 09:29 | PN ---
[facility] CIWA - CIWA Score Nausea/Vomitin-No Nausea/No Vomiting Muscle Tremors: 1-None Visible, but [place] Anxiety: 1-Mildly Anxious Agitation: 1-Slight > Activity Paroxysmal Sweats: 1-Minimal Palms Moist Orientation: 0-Oriented Tacttile Disturbances: 0-None Auditory Disturbances: 0-None Visual Disturbances: 0-None Headache: 0-None Present CIWA-Ar Total Score: 4 [facility] Progress Note (SOAP) Subjective: anxiety Objective: 09/13/18 09:28 Vital Signs Temperature 98.1 F 09/13/18 07:56 Pulse Rate 94 H 09/13/18 07:56 Respiratory Rate 20 09/13/18 07:56 Blood Pressure 124/75 09/13/18 07:56 O2 Sat by Pulse Oximetry (%) [id number] ambulating no acute distress Assessment: 09/13/18 09:29 mild withdrawal sx Plan: continue detox increase fluids d/c in am
[2018-09-13] MEDS: PRENATAL VITAMINS W/ FOLIC ACID TABLET (FP) PO SCH (10:57)
[2018-09-13] MEDS ORDERED: hydrOXYzine HCL 25 MG TABLET (FP) PO PRN (16:45)
[2018-09-13] MEDS: THIAMINE HCL 100 MG TABLET (FP) PO SCH (22:18)
[2018-09-13] MEDS: MELATONIN 5 MG TABLETS PO PRN (22:18)
[2018-09-13 22:39] VITALS: TEMP 97.9
[2018-09-14] MEDS ORDERED: chlordiazePOXIDE HCL 10 MG CAPSULE PO SCH (05:00)
[2018-09-14 06:39] VITALS: BP 114/79; PULSE 96
--- NOTE | 2018-09-14 09:36 | DS ---
[facility] Detox Discharge Summary Admission Date: 09/10/18 Discharge Date: 09/14/18 - History Present History: Alcohol Dependence - Physical Exam Results Vital Signs: Vital Signs Temperature 97.9 F 09/14/18 06:00 Pulse Rate 96 H 09/14/18 06:00 Respiratory Rate 16 09/14/18 06:00 Blood Pressure 114/79 09/14/18 06:00 O2 Sat by Pulse Oximetry (%) - Treatment Hospital Course: Detox Protocol Followed, Detoxed Safely, Responded well, Discharged Condition Good, Rehab Referral Accepted - Medication Discharge Medications: Ambulatory Orders NK [No Known Home Medication] 05/14/18 - Diagnosis (1) Alcohol dependence with uncomplicated withdrawal Current Visit: Yes Status: Chronic (2) Nicotine dependence Current Visit: Yes Status: Chronic Qualifiers: Nicotine product type: cigarettes Substance use status: uncomplicated Qualified Code(s): F17.210 - Nicotine dependence, cigarettes, uncomplicated (3) Closed left humeral fracture Current Visit: Yes Status: Chronic Qualifiers: Encounter type: initial encounter (4) Hypokalemia Current Visit: No Status: Acute (5) Alcohol withdrawal seizure Current Visit: No Status: Chronic Qualifiers: Complication of substance-induced condition: with unspecified complication Qualified Code(s): F10.239 - Alcohol dependence with withdrawal, unspecified (6) DM Diabetes mellitus type 2 Current Visit: Yes Status: Chronic (7) Essential hypertension Current Visit: Yes Status: Chronic (8) Hyperlipidemia Current Visit: Yes Status: Chronic Qualifiers: Hyperlipidemia type: pure hypercholesterolemia Qualified Code(s): E78.00 - Pure hypercholesterolemia, unspecified; E78.0 - Pure hypercholesterolemia (9) Schizophrenia Current Visit: No Status: Chronic Qualifiers: Schizophrenia type: paranoid schizophrenia Qualified Code(s): F20.0 - Paranoid schizophrenia - AMA Did Patient Leave Against Medical Advice: No (declined aftercare; going home)
[2018-09-15] MEDS ORDERED: chlordiazePOXIDE HCL 10 MG CAPSULE PO ONE (05:00)
== END 2018-09-14 09:06 | disposition home or self-care (01) | DRG 775 ==
LOC: YASAS 14:00 → Y6N 17:16
PROVIDERS: ADMIT Surgery; ATTEND Surgery
PROC: HZ2ZZZZ Detoxification Services for Substance Abuse Treatment (ICD-10-PCS; principal; 2018-09-10)
DX: F10.230 Alcohol dependence with withdrawal, uncomplicated (principal); F17.210 Nicotine dependence, cigarettes, uncomplicated; G40.89 Other seizures; F20.0 Paranoid schizophrenia; I10 Essential (primary) hypertension; E11.9 Type 2 diabetes mellitus without complications; E78.00 Pure hypercholesterolemia, unspecified; E87.6 Hypokalemia; Z87.81 Personal history of (healed) traumatic fracture
CPT/HCPCS: 36415; 80053; 80307; 81003; 85025; 86593; 99282-25

== ENCOUNTER 2019-02-08 11:28 | Inpatient (IN) | payer OTHER ==
[2019-02-08 12:22] VITALS: BMI 25.7
--- NOTE | 2019-02-08 13:44 | HP ---
CIWA Score Nausea/Vomitin-No Nausea/No Vomiting Muscle Tremors: 4-Moderate,w/Arms Extend Anxiety: 1-Mildly Anxious Agitation: 0-Normal Activity Paroxysmal Sweats: No Perspiration Orientation: 0-Oriented Tacttile Disturbances: 0-None Auditory Disturbances: 0-None Visual Disturbances: 0-None Headache: 3-Moderate CIWA-Ar Total Score: 8 - Admission Criteria OASAS Guidelines: Admission for Medically Managed Detox: Requires at least one of the followin. CIWA greater than 12 2. Seizures within the past 24 hours 3. Delirium tremens within the past 24 hours 4. Hallucinations within the past 24 hours 5. Acute intervention needed for co occurring medical disorder 6. Acute intervention needed for co occurring psychiatric disorder 7. Severe withdrawal that cannot be handled at a lower level of care (continued vomiting, continued diarrhea, abnormal vital signs) requiring intravenous medication and/or fluids 8. Admitting History and Physical - Smoking History Smoking history: Current every day smoker Have you smoked in the past 12 months: Yes Aproximately how many cigarettes per day: 10 If you are a former smoker, when did you quit?: 5 - Alcohol/Substance Use Hx Alcohol Use: Yes Admission [facility] Allergies/Adverse Reactions: Allergies Allergy/AdvReac Type Severity Reaction Status Date / Time No Known Allergies Allergy Verified 02/08/19 12:16 History of Present Illness: 63 y/o M with history of alcohol and marijuana use presenting to [facility] for detox. Pt claims that he only drinks 2-16 oz of beers in the afternoon since his 20s. Denies any blackouts or withdrawal symptoms including seizures because as soon as he starts getting sick, he just drinks again. Last drink was this morning at 9:30. Last detox was here in september; started drinking again in october in order to "stop his thoughts". Pt also admits to smoking 2 marijuana joints a day and 5 cigarettes a day for the past 10 yrs. Goes to outpatient rehab at [facility] on [address] [facility] [address]. Non productive cough since this afternoon. PMH: none Psych Hx: none PSH: none Social hx: lives alone. retired on SSI. PE VS 99.4F, 119/71 mmHg, 103 bpm, 18 Utox: THC MACK :0 CIWA 8 General : NAD HEENT: PERRLA , moist membranes LUNG: VBS b/l but diffuse crackles HEART: tachy, RRR no MRG Abdomen: +BS, NTND extremities: 2+ pulses no edema Neuro: grossly intact Plan: will give oxygen for now and transfer to [facility] to r/o PNA with low grade temp of 99.4, cough, crackles, and O2 sat @ 90 then once clear return to [facility] for Rehab smoking cessation : declines patch and gum as "it makes him sick" - Ebola screening Have you traveled outside of the country in the last 21 days: No (N) Have you had contact with anyone from an Ebola affected area: No Do you have a fever: No Patient History - Patient Medical History Hx Anemia: No Hx Asthma: No Hx Chronic Obstructive Pulmonary Disease (COPD): No Hx Cancer: No Hx Cardiac Disorders: No Hx Congestive Heart Failure: No Hx Hypertension: No Hx Hypercholesterolemia: No Hx Pacemaker: No HX Cerebrovascular Accident: No Hx Seizures: No Hx Dementia: No Hx Diabetes: Yes (NOT ON MEDICATIONS) Hx Gastrointestinal Disorders: No Hx Liver Disease: No Hx Genitourinary Disorders: No Hx Sexually Transmitted Disorders: No Hx Renal Disease (ESRD): No Hx Thyroid Disease: No Hx Human Immunodeficiency Virus (HIV): No (never been tested for hiv) Hx Hepatitis C: No Hx Depression: No Hx Suicide Attempt: No Hx Bipolar Disorder: No Hx Schizophrenia: Yes (no med) - Patient Surgical History Past Surgical History: No Hx Neurologic Surgery: No Hx Cataract Extraction: No Hx Cardiac Surgery: No Hx Lung Surgery: No Hx Breast Surgery: No Hx Breast Biopsy: No Hx Abdominal Surgery: No Hx Appendectomy: No Hx Cholecystectomy: No Hx Genitourinary Surgery: No Hx Section: No Hx Orthopedic Surgery: No Anesthesia Reaction: No - PPD History Results: cxray(-)02/2016 - Smoking Cessation Smoking history: Current every day smoker Have you smoked in the past 12 months: Yes Aproximately how many cigarettes per day: 10 Cigars Per Day: 5 Hx Chewing Tobacco Use: No Initiated information on smoking cessation: Yes 'Breaking Loose' booklet given: 02/08/19 - Substances abused Alcohol Substance route: Oral Frequency: Daily Amount used: 2/60oz CANS Age of first use: 19 Date of last use: 02/08/19 Admission Physical Exam [facility] - Vital Signs Vital Signs: Vital Signs - 24 hr 02/08/19 12:16 Temperature 99.4 F Pulse Rate 103 H Respiratory 18 Rate Blood Pressure 119/71 Cleared for Admission S - Detox or Rehab [facility] Level of Care: Medically Supervised Breathalyzer - Breathalyzer Breathalyzer: 0 Urine Drug Screen - Test Device Lot number: [id number] Expiration date: 10/06/20 - Control Is test valid?: Yes - Results Drug screen NEGATIVE: No Urine drug screen results: THC-Marijuana Inpatient Rehab Admission - Rehab Decision to Admit Inpatient rehab admission?: Yes - Initial Determination Are CD services needed?: Yes Free of communicable disease: Yes Not in need of hospitalization: Yes - Rehab Admission Criteria Previous failed treatment: Yes Poor recovery environment: Yes Comorbidities: No Lacks judgement: Yes Patient is meeting Inpatient Rehab admission criteria:: Yes
--- NOTE | 2019-02-08 15:39 | PN ---
Teaching Attending Note Name of Resident: Shea Serrano ATTENDING PHYSICIAN STATEMENT I saw and evaluated the patient. I reviewed the resident's note and discussed the case with the resident. I agree with the resident's findings and plan as documented. SUBJECTIVE: pt here for ETOH use , reports 2 x 16 oz beer daily , referred by program Positive directions 2/2 ogoing alcohol use , states drinks in the mornings before going to the program, denies blackouts, seizures, tremors , latest use today . OBJECTIVE: wnwd , mild distress CV [id number] Resp : no accessory mm use , + generalized rhonchi , + Wheezing Vital Signs - 24 hr 02/08/19 12:16 Temperature 99.4 F Pulse Rate 103 H Respiratory 18 Rate Blood Pressure 119/71 ASSESSMENT AND PLAN: Transfer to [facility] ED for further eval & tx . Pt left w / EMS .
[2019-02-08] MEDS ORDERED: MAGNESIUM HYDROX 2400MG/30ML ORAL SUSPENSION 30 ML CUP PO PRN (22:46)
[2019-02-08] MEDS ORDERED: LOPERAMIDE HCL 2 MG CAPSULE PO PRN (22:46)
[2019-02-08] MEDS ORDERED: MENTHOL/PHENOL 1 EACH UD MM PRN (22:46)
[2019-02-08] MEDS ORDERED: hydrOXYzine PAMOATE 50 MG CAPSULE (FP) PO PRN (22:46)
[2019-02-08] MEDS ORDERED: P-EPHED 60MG/TRIPROLIDI 2.5MG TABLET PO PRN (22:46)
[2019-02-08] MEDS ORDERED: MAGNESIUM CITRATE 300 ML BOTTLE PO PRN (22:46)
[2019-02-08] MEDS ORDERED: NICOTINE POLACRILEX 2 MG GUM BUC PRN (22:46)
[2019-02-08] MEDS ORDERED: ACETAMINOPHEN 325 MG TABLET (FP) PO PRN (22:46)
[2019-02-08] MEDS ORDERED: MAG HYDROX/AL HYDROX/SIMETH 30 ML UNIT-DOSE CUP PO PRN (22:46)
[2019-02-08] MEDS ORDERED: IBUPROFEN 400 MG TABLET (FP) PO PRN (22:46)
--- NOTE | 2019-02-08 23:22 | PN ---
[facility] Progress Note Note: Patient returned from [facility] ED alert and in NAD. Lungs noisy, Pulses Ox = 97 % . Denies SOB. + tremors. Abd soft/non-tender. No peripheral edema. Denies getting sick when stops alcohol. Dx tests in ED: CBC/CMP/Rapid Flu titer/CXR/EKG. Plan: Will provide prednisone 50 mg PO daily x 3 beginning in a.m. Will order albuterol neb tx x 3 doses -standing. Will continue ehab admission.
[2019-02-09] MEDS: guaiFENesin 200 MG/10 ML 10 ML UNIT-DOSE CUPS PO SCH ×5 (00:51→22:52)
[2019-02-09] MEDS: ALBUTEROL SO4 0.083% IH SOL 2.5 MG/3 ML VIAL.NEB. NEB SCH (00:52)
[2019-02-09] MEDS ORDERED: PATIENT'S OWN MEDICATION (NON-FORMULARY) (Prednisone [Prednisone 50 Mg Tablets] 50 MG) PO SCH (10:00)
[2019-02-09] MEDS: PRENATAL VITAMINS W/ FOLIC ACID TABLET (FP) PO SCH (10:22)
[2019-02-09] MEDS: predniSONE 40 MG, predniSONE 10 MG PO SCH (14:27)
--- NOTE | 2019-02-09 14:40 | PN ---
[facility] Progress Note Note: Pt is a 63 y/o male with a hx of alcohol and marijuana dependence admitted to rehab from [facility]. Pt was evaluated at [facility] from [facility] yesterday for chest congestion and cleared for rehab. Pt reports he has a primary care doctor but does not remember his name. Pt reports he has appointment with his doctor on 02/10/19 but will miss it since he is here. pt was encouraged to reschedule but pt insists he will follow up with his doctor after rehab and does not need to call him to reschedule. Vital Signs - 24 hr 02/09/19 02/09/19 02/09/19 00:02 00:30 03:30 Temperature 97.8 F Pulse Rate 83 Respiratory 19 18 18 Rate Blood Pressure 114/69 02/09/19 07:06 Temperature 98.0 F Pulse Rate 83 Respiratory 18 Rate Blood Pressure 114/69 Laboratory Tests 02/09/19 08:00 RPR Titer Nonreactive Labs pending CXR at [facility](02/08/19): No pathology. Old Rib Truama A/P new pt to rehab Maintain safety
[2019-02-09 18:08] LABS: PH,URINE 6.5 (5.0-8.0); URINE APPEARANCE CLEAR; URINE BILIRUBIN NEGATIVE (NEGATIVE); URINE COLOR YELLOW; URINE GLUCOSE (UA) NEGATIVE (NEGATIVE); URINE KETONE NEGATIVE (NEGATIVE); URINE LEUK ESTERASE NEGATIVE (NEGATIVE); URINE NITRITE NEGATIVE (NEGATIVE); URINE PROTEIN NEGATIVE (NEGATIVE); URINE UROBILINOGEN 0.2 mg/dL (0.2-1.0)
[2019-02-09] MEDS: THIAMINE HCL 100 MG TABLET (FP) PO SCH (21:06)
[2019-02-09] MEDS: MELATONIN 5 MG TABLETS PO PRN (21:06)
[2019-02-10] MEDS: guaiFENesin 200 MG/10 ML 10 ML UNIT-DOSE CUPS PO SCH ×4 (05:03→22:46)
[2019-02-10] MEDS: PRENATAL VITAMINS W/ FOLIC ACID TABLET (FP) PO SCH (10:03)
[2019-02-10] MEDS: predniSONE 40 MG, predniSONE 10 MG PO SCH (10:03)
[2019-02-10] MEDS: ALBUTEROL SO4 0.083% IH SOL 2.5 MG/3 ML VIAL.NEB. NEB SCH (10:04)
--- NOTE | 2019-02-10 12:01 | PN ---
[facility] Progress Note Note: Pt with a hx of DM but not on medication. Vital Signs - 24 hr 02/10/19 02/10/19 02/10/19 00:30 03:30 06:54 Temperature 98.0 F Pulse Rate 85 Respiratory 16 18 18 Rate Blood Pressure 125/70 Laboratory Test 02/09/19 02/09/19 08:00 09:25 Urine Color Yellow Urine Appearance Clear Urine pH 6.5 Ur Specific [place] 1.020 Urine Protein Negative Urine Glucose (UA) Negative Urine Ketones Negative Urine Blood Negative Urine Nitrite Negative Urine Bilirubin Negative Urine Urobilinogen 0.2 Ur Leukocyte Esterase Negative RPR Titer Nonreactive A/P Hx of DM Hyperglycemia BGM monitoring daily
[2019-02-10] MEDS: metFORMIN HCL 500 MG TABLET (FP) PO SCH (16:38)
[2019-02-10] MEDS: MELATONIN 5 MG TABLETS PO PRN (21:24)
[2019-02-10] MEDS: THIAMINE HCL 100 MG TABLET (FP) PO SCH (21:24)
[2019-02-11] MEDS: guaiFENesin 200 MG/10 ML 10 ML UNIT-DOSE CUPS PO SCH ×3 (04:57→16:30)
[2019-02-11] MEDS: metFORMIN HCL 500 MG TABLET (FP) PO SCH ×2 (06:51→16:30)
[2019-02-11] MEDS: PRENATAL VITAMINS W/ FOLIC ACID TABLET (FP) PO SCH (09:55)
[2019-02-11] MEDS: predniSONE 40 MG, predniSONE 10 MG PO SCH (09:56)
[2019-02-11] MEDS: THIAMINE HCL 100 MG TABLET (FP) PO SCH (21:12)
[2019-02-12] MEDS: metFORMIN HCL 500 MG TABLET (FP) PO SCH ×2 (07:29→16:54)
[2019-02-12] MEDS: PRENATAL VITAMINS W/ FOLIC ACID TABLET (FP) PO SCH (10:06)
[2019-02-12] MEDS: THIAMINE HCL 100 MG TABLET (FP) PO SCH (21:05)
[2019-02-13] MEDS: MELATONIN 5 MG TABLETS PO PRN ×2 (01:31→23:05)
[2019-02-13] MEDS: metFORMIN HCL 500 MG TABLET (FP) PO SCH ×2 (06:16→16:27)
[2019-02-13] MEDS: PRENATAL VITAMINS W/ FOLIC ACID TABLET (FP) PO SCH (10:03)
[2019-02-13] MEDS: THIAMINE HCL 100 MG TABLET (FP) PO SCH (21:03)
[2019-02-14] MEDS: metFORMIN HCL 500 MG TABLET (FP) PO SCH ×2 (07:02→17:00)
[2019-02-14] MEDS: PRENATAL VITAMINS W/ FOLIC ACID TABLET (FP) PO SCH (10:36)
[2019-02-14] MEDS: MELATONIN 5 MG TABLETS PO PRN (21:07)
[2019-02-14] MEDS: THIAMINE HCL 100 MG TABLET (FP) PO SCH (21:07)
[2019-02-15] MEDS: metFORMIN HCL 500 MG TABLET (FP) PO SCH ×2 (06:18→16:39)
[2019-02-15] MEDS: PRENATAL VITAMINS W/ FOLIC ACID TABLET (FP) PO SCH (10:30)
[2019-02-15] MEDS: THIAMINE HCL 100 MG TABLET (FP) PO SCH (21:02)
[2019-02-15] MEDS: MELATONIN 5 MG TABLETS PO PRN (21:02)
[2019-02-16] MEDS: metFORMIN HCL 500 MG TABLET (FP) PO SCH ×2 (06:17→16:34)
[2019-02-16] MEDS: PRENATAL VITAMINS W/ FOLIC ACID TABLET (FP) PO SCH (10:14)
[2019-02-16] MEDS: THIAMINE HCL 100 MG TABLET (FP) PO SCH (21:08)
[2019-02-16] MEDS: MELATONIN 5 MG TABLETS PO PRN (21:09)
[2019-02-17] MEDS: metFORMIN HCL 500 MG TABLET (FP) PO SCH ×2 (07:08→17:04)
[2019-02-17] MEDS: PRENATAL VITAMINS W/ FOLIC ACID TABLET (FP) PO SCH (10:03)
[2019-02-17] MEDS: MELATONIN 5 MG TABLETS PO PRN (21:10)
[2019-02-17] MEDS: THIAMINE HCL 100 MG TABLET (FP) PO SCH (21:10)
[2019-02-18] MEDS: metFORMIN HCL 500 MG TABLET (FP) PO SCH ×2 (06:49→16:51)
[2019-02-18] MEDS: PRENATAL VITAMINS W/ FOLIC ACID TABLET (FP) PO SCH (10:16)
[2019-02-18] MEDS: THIAMINE HCL 100 MG TABLET (FP) PO SCH (21:09)
[2019-02-18] MEDS: MELATONIN 5 MG TABLETS PO PRN (22:11)
[2019-02-19] MEDS: metFORMIN HCL 500 MG TABLET (FP) PO SCH ×2 (06:09→18:22)
[2019-02-19] MEDS: PRENATAL VITAMINS W/ FOLIC ACID TABLET (FP) PO SCH (09:32)
[2019-02-19] MEDS: THIAMINE HCL 100 MG TABLET (FP) PO SCH (21:33)
[2019-02-19] MEDS: MELATONIN 5 MG TABLETS PO PRN (21:33)
[2019-02-20] MEDS: metFORMIN HCL 500 MG TABLET (FP) PO SCH ×2 (06:18→16:23)
[2019-02-20] MEDS: PRENATAL VITAMINS W/ FOLIC ACID TABLET (FP) PO SCH (09:48)
[2019-02-20] MEDS: MELATONIN 5 MG TABLETS PO PRN (21:13)
[2019-02-20] MEDS: THIAMINE HCL 100 MG TABLET (FP) PO SCH (21:13)
[2019-02-21] MEDS: metFORMIN HCL 500 MG TABLET (FP) PO SCH ×2 (06:57→16:51)
[2019-02-21] MEDS: PRENATAL VITAMINS W/ FOLIC ACID TABLET (FP) PO SCH (10:07)
--- NOTE | 2019-02-21 16:16 | DS ---
[facility] Rehab Discharge Summary - [facility] Rehab Discharge Summary Admission Date: 02/08/19 Discharge Date: 02/22/19 - History Present History: Alcohol dependence Additional Comments: Pt is a 63 y/o male with a hx RODNEY admitted to rehab and scheduled for discharge on 02/22/19. Pt reports he has primary care with [facility] on [place], [place] with Dr. Cao and [facility] [address] [place] [address]. Pt has been referred to [facility] on [address] [place] [address] for CD aftercare treatment. 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 abdomen:soft,+bs,nt,flat extremities/skin;no edema,full ROM/weight bearing,skin intact. Pertinent Admission Physical Exam Findings: Laboratory Tests 02/09/19 02/09/19 02/10/19 08:00 09:25 16:36 POC Glucometer 260 Urine Color Yellow Urine Appearance Clear Urine pH 6.5 Ur Specific [place] 1.020 Urine Protein Negative Urine Glucose (UA) Negative Urine Ketones Negative Urine Blood Negative Urine Nitrite Negative Urine Bilirubin Negative Urine Urobilinogen 0.2 Ur Leukocyte Esterase Negative RPR Titer Nonreactive 02/11/19 02/11/19 02/12/19 06:50 16:27 07:27 POC Glucometer 153 264 193 Urine Color Urine Appearance Urine pH Ur Specific [place] Urine Protein Urine Glucose (UA) Urine Ketones Urine Blood Urine Nitrite Urine Bilirubin Urine Urobilinogen Ur Leukocyte Esterase RPR Titer 02/12/19 02/13/19 02/13/19 16:52 06:15 16:26 POC Glucometer 177 157 142 Urine Color Urine Appearance Urine pH Ur Specific [place] Urine Protein Urine Glucose (UA) Urine Ketones Urine Blood Urine Nitrite Urine Bilirubin Urine Urobilinogen Ur Leukocyte Esterase RPR Titer 02/14/19 02/14/19 02/15/19 07:00 16:59 06:16 POC Glucometer 120 143 198 Urine Color Urine Appearance Urine pH Ur Specific [place] Urine Protein Urine Glucose (UA) Urine Ketones Urine Blood Urine Nitrite Urine Bilirubin Urine Urobilinogen Ur Leukocyte Esterase RPR Titer 02/15/19 02/16/19 02/16/19 16:37 06:16 16:33 POC Glucometer 143 167 157 Urine Color Urine Appearance Urine pH Ur Specific [place] Urine Protein Urine Glucose (UA) Urine Ketones Urine Blood Urine Nitrite Urine Bilirubin Urine Urobilinogen Ur Leukocyte Esterase RPR Titer 02/17/19 02/17/19 02/18/19 07:07 17:02 06:48 POC Glucometer 138 132 202 Urine Color Urine Appearance Urine pH Ur Specific [place] Urine Protein Urine Glucose (UA) Urine Ketones Urine Blood Urine Nitrite Urine Bilirubin Urine Urobilinogen Ur Leukocyte Esterase RPR Titer 02/18/19 02/19/19 02/20/19 16:48 06:08 06:17 POC Glucometer 189 139 205 Urine Color Urine Appearance Urine pH Ur Specific [place] Urine Protein Urine Glucose (UA) Urine Ketones Urine Blood Urine Nitrite Urine Bilirubin Urine Urobilinogen Ur Leukocyte Esterase RPR Titer 02/20/19 02/21/19 02/21/19 16:25 06:57 16:50 POC Glucometer 176 142 144 Urine Color Urine Appearance Urine pH Ur Specific [place] Urine Protein Urine Glucose (UA) Urine Ketones Urine Blood Urine Nitrite Urine Bilirubin Urine Urobilinogen Ur Leukocyte Esterase RPR Titer 02/22/19 06:45 POC Glucometer 176 Urine Color Urine Appearance Urine pH Ur Specific [place] Urine Protein Urine Glucose (UA) Urine Ketones Urine Blood Urine Nitrite Urine Bilirubin Urine Urobilinogen Ur Leukocyte Esterase RPR Titer Pt instructed to take lab results to his primary care provider today for medical management discussion of his care/medications. - Treatment Discharge Condition: Discharge condition good Hospital Course: Rehabilitated safely and responded well CD aftercare referral accepted. - Medication Discharge Medications: Ambulatory Orders Albuterol Sulfate Inhaler - [Ventolin HFA Inhaler -] 1 - 2 inh PO Q4H #1 inhaler 02/08/19 metFORMIN HCL [Glucophage -] 500 mg PO BID #60 tablet 02/21/19 - Medication-Assisted Treatment (MAT) Medication-Assisted Treatment (MAT): No - Discharge Instructions Diet, activity, other medical instructions: Diet:NCS Activity: oob ad julianne Other medical instructions:Follow up with CD aftercare as scheduled with [facility]. follow up with medical and psych providers at [facility] and [address] respectively for health management of comorbid conditions. - Diagnosis (1) Alcohol use disorder Status: Chronic (2) DM Diabetes mellitus type 2 Status: Chronic (3) Nicotine dependence Status: Chronic Qualifiers: Nicotine product type: cigarettes Substance use status: uncomplicated Qualified Code(s): F17.210 - Nicotine dependence, cigarettes, uncomplicated - Follow-up Referral Minutes to complete discharge: 20 - AMA Did Patient Leave Against Medical Advice: No Additional Comments: Pt states he is going straight to his primary care doctor on [address] [place] [address] to see him for two reasons--psych papers for [facility] for his Haldol monthly injections.
[2019-02-21] MEDS: THIAMINE HCL 100 MG TABLET (FP) PO SCH (21:08)
[2019-02-21] MEDS: MELATONIN 5 MG TABLETS PO PRN (23:11)
[2019-02-22 06:45] VITALS: BP 112/63; PULSE 76; TEMP 98.5
[2019-02-22] MEDS: metFORMIN HCL 500 MG TABLET (FP) PO SCH (07:49)
[2019-02-22] MEDS: PRENATAL VITAMINS W/ FOLIC ACID TABLET (FP) PO SCH (09:10)
== END 2019-02-22 10:15 | disposition home or self-care (01) | DRG 772 ==
LOC: YASAS 11:28 → Y5N 22:13
PROVIDERS: ADMIT Neuromusculoskeletal Medicine & OMM; ATTEND Neuromusculoskeletal Medicine & OMM
PROC: HZ42ZZZ Group Counseling for Substance Abuse Treatment, Cognitive-Behavioral (ICD-10-PCS; principal; 2019-02-08)
DX: F10.20 Alcohol dependence, uncomplicated (principal); F17.210 Nicotine dependence, cigarettes, uncomplicated; E11.65 Type 2 diabetes mellitus with hyperglycemia
CPT/HCPCS: 36415; 81003; 82962; 86593

== ENCOUNTER 2019-02-08 15:12 | Emergency (ER) | payer OTHER ==
[2019-02-08 15:19] VITALS: BMI 24.3
--- NOTE | 2019-02-08 15:56 | PDOC ---
History of Present Illness - General Chief Complaint: Wheezing Stated Complaint: SOB,FEVER Time Seen by Provider: 02/08/19 15:35 History Source: Patient - History of Present Illness Initial Comments: 02/08/19 15:53 Patient is a 63 year old male with PMH of alcohol use who presents from [facility] with non-productive cough since this morning. Pt went to [facility] this am for detox. At the time of arrival he also complained of a mild nonproductive cough that started when he woke up. Denies any fevers, chills, dyspnea, chest pain, nausea, vomiting. No sick contacts or recent travel. Pt denies hx of any lung disease or pna in the past. He smokes 5 cigarettes a day. Last alcohol drink was this morning at 9:30am. CIWA score 2 PCP: Dr. Laura Quan Allergies: NKDA PMH: denies Surgical hx: denies 02/08/19 15:57 02/08/19 15:58 Is this a multiple visit Asthma Patient?: No Past History - Past Medical History Allergies/Adverse Reactions: Allergies Allergy/AdvReac Type Severity Reaction Status Date / Time No Known Allergies Allergy Verified 02/08/19 12:16 Home Medications: Ambulatory Orders Albuterol Sulfate Inhaler - [Ventolin HFA Inhaler -] 1 - 2 inh PO Q4H #1 inhaler 02/08/19 Prednisone [Prednisone 50 MG TABLETS] 50 mg PO DAILY #3 tablet MDD 1 tab Anemia: No Asthma: No Cancer: No Cardiac Disorders: No CVA: No COPD: No CHF: No Dementia: No Diabetes: Yes (NOT ON MEDICATIONS) GI Disorders: No Disorders: No HTN: No Hypercholesterolemia: No Kidney Stones: No Liver Disease: No Seizures: No Thyroid Disease: No - Surgical History Abdominal Surgery: No Appendectomy: No Cardiac Surgery: No Cholecystectomy: No Lung Surgery: No Neurologic Surgery: No Orthopedic Surgery: No - Reproductive History Testicular Surgery: No - Psycho Social/Smoking Cessation Hx Smoking History: Current every day smoker Have you smoked in the past 12 months: Yes Number of Cigarettes Smoked Daily: 5 If you are a former smoker, when did you quit?: 5 Cigars Per Day: 5 Information on smoking cessation initiated: No 'Breaking Loose' booklet given: 02/08/19 Hx Alcohol Use: Yes Drug/Substance Use Hx: Yes Substance Use Type: Alcohol Hx Substance Use Treatment: No Respiratory Specific PMHX - Complaint Specific PMHX Hx TB (Tuberculosis): No (+PPD) Review of Systems - Review of Systems Able to Perform ROS?: Yes Constitutional: No: Symptoms Reported, See HPI, Chills, Diaphoresis, Fever, Loss of Appetite, Malaise, Night Sweats, Weakness, Weight Stable, Unintentional Wgt. Loss, Unexplained wgt Loss, Other HEENTM: No: Symptoms Reported, See HPI, Eye Pain, Blurred Vision, Tearing, Recent change in vision, Double Vision, Cataracts, Ear Pain, Ocular Prothesis, Ear Discharge, Nose Pain, Nose Congestion, Tinnitus, Nose Bleeding, Hearing Loss , Throat Pain, Throat Swelling, Mouth Pain, Dental Problems, Difficulty Swallowing, Mouth Swelling, Other Respiratory: Yes: Cough. No: Symptoms reported, See HPI, Orthopnea, Shortness of Breath, SOB with Exertion, SOB at Rest, Stridor, Wheezing, Productive cough, Hemoptysis, Other Cardiac (ROS): No: Symptoms Reported, See HPI, Chest Pain, Edema, Irregular Heart Rate, Lightheadedness, Palpitations, Syncope, Chest Tightness, Other ABD/GI: No: Symptoms Reported, See HPI, Abdominal Distended, Abd. Pain w/ defecation, Blood Streaked Bowels, Constipated, Diarrhea, Difficulty Swallowing , Nausea, Poor Appetite, Poor Fluid Intake, Rectal Bleeding, Vomiting, Indigestion, Abdominal cramping, Tarry Stools, Other : No: Symptoms Reported, See HPI, Burning, Dysuria, Discharge, Frequency, Flank Pain, Hematuria, Incontinence, Pain, Urgency, Testicular Mass, Testicular Swelling, Lesions, Testicular Pain, Other Musculoskeletal: No: Symptoms Reported, See HPI, Back Pain, Gout, Joint Pain, Joint Swelling, Muscle Pain, Muscle Weakness, Neck Pain, Joint Stiffness, Other *Physical Exam - Vital Signs Last Vital Signs Temp Pulse Resp BP Pulse Ox 99.8 F H 87 18 122/76 97 02/08/19 15:17 02/08/19 15:17 02/08/19 15:17 02/08/19 15:17 02/08/19 15:17 - Physical Exam General Appearance: Yes: Nourished. No: Apparent Distress HEENT: positive: Normal ENT Inspection, Normal Voice, Pharynx Normal Neck: positive: Trachea midline, Normal Thyroid, Supple Respiratory/Chest: positive: Rhonchi. negative: Chest Tender, Respiratory Distress, Accessory Muscle Use, Crackles, Wheezing Cardiovascular: positive: Regular Rhythm, Regular Rate, S1, S2. negative: Edema , JVD, Murmur Vascular Pulses: Dorsalis-Pedis (R): 2+, Doralis-Pedis (L): 2+ Gastrointestinal/Abdominal: positive: Normal Bowel Sounds, Soft. negative: Tender Musculoskeletal: positive: Normal Inspection Extremity: positive: Normal Inspection, Normal Range of Motion Neurologic: positive: Fully Oriented, Normal Mood/Affect, Motor Strength 07/11 ED Treatment Course - LABORATORY CBC & Chemistry Diagram: 02/08/19 16:30 02/08/19 16:30 - RADIOLOGY Radiology Studies Ordered: Category Date Time Status CHEST PA & LAT [RAD] Stat Radiology 02/08/19 15:49 Ordered Medical Decision Making - Medical Decision Making 02/08/19 16:26 >> CXR, CBC, CMP, rapid flu 02/08/19 16:44 CXR: no acute pathology No fevers, leukocytosis, satting well on RA. Rapid flu negative. >> Give 60mg po prednisone and duonebs, d/c back to [facility] Discharge - Discharge Information Problems reviewed: Yes Clinical Impression/Diagnosis: Wheezing Condition: Stable Disposition: HOME - Admission No - Additional Discharge Information Prescriptions: Albuterol Sulfate Inhaler - [Ventolin HFA Inhaler -] 1 - 2 inh PO Q4H #1 inhaler Prednisone [Prednisone 50 MG TABLETS] 50 mg PO DAILY #3 tablet MDD 1 tab - Follow up/Referral Referrals: Colby Jama MD [Primary Care Provider] - - Patient Discharge Instructions Additional Instructions: Please return to the emergency department with any new or worsening symptoms or concerns. Please follow up with your primary care physician within 72 hours. Please take Albuterol as needed for symptoms. Take Prednisone daily. - Post Discharge Activity
[2019-02-08] MEDS ORDERED: ALBUTEROL SO4 2.5/IPRATROPIUM 0.5 INH SOL 3 ML VIAL.NEB. NEB ONE ×2 (16:46→16:55)
[2019-02-08] MEDS ORDERED: predniSONE 20 MG TABLET (UD) PO ONE (16:46)
[2019-02-08 16:51] LABS: BASO % 0.6 % (0-2.0); EOS % 4.6 % (0-4.5); HEMATOCRIT 43.5 % (35.4-49); HEMOGLOBIN 14.9 GM/dL (11.7-16.9); LYMPH % 27.2 % (8-40); MCH 31.9 pg (25.7-33.7); MCHC 34.2 g/dl (32.0-35.9); MEAN CELL VOLUME 93.4 fl (80-96); MEAN PLT VOLUME 8.1 fl (7.5-11.1); MONO % 9.9 % (3.8-10.2); NEUT % 57.7 % (42.8-82.8); PLATELET COUNT 203 K/MM3 (134-434); RBC 4.66 M/mm3 (4.00-5.60); RDW 13.1 % (11.9-15.9); WHITE BLOOD COUNT 5.5 K/mm3 (4.0-10.0)
[2019-02-08] MEDS ORDERED: predniSONE 20 MG TABLET (UD) ONE (16:54)
--- NOTE | 2019-02-08 17:09 | PDOC ---
Attending Attestation - Resident Resident Name: Adele Quezada - ED Attending Attestation I have performed the following: I have examined & evaluated the patient, The case was reviewed & discussed with the resident, I agree w/resident's findings & plan, Exceptions are as noted - HPI HPI: 02/08/19 17:08 64-year-old male brought over from [facility] detox for fever and cough HPI he is here for alcohol detox and has a longstanding history of tobacco use - Physicial Exam PE: 02/08/19 17:08 Well developed, well nourished. Awake and alert. No acute distress. HEENT: Normocephalic, atraumatic. PERRLA, EOMI. No conjunctival pallor. Sclera are non- icteric. Moist mucous membranes. Oropharynx is clear. NECK: Supple. Full ROM. No JVD. Carotid pulses 2+ and symmetric, without bruits. No thyromegaly. No lymphadenopathy. CARDIOVASCULAR: Regular rate and rhythm. No murmurs, rubs, or gallops. Distal pulses are 2+ and symmetric. PULMONARY: Diffuse expiratory wheezing ABDOMINAL: Soft. Non-tender. Non-distended. No rebound or guarding. No organomegaly. Normoactive bowel sounds. MUSCULOSKELETAL Normal range of motion at all joints. No bony deformities or tenderness. No CVA tenderness. EXTREMITIES: No cyanosis. No clubbing. No edema. No calf tenderness. SKIN: Warm and dry. Normal capillary refill. No rashes. No jaundice. NEUROLOGICAL: Alert, awake, appropriate. Cranial nerves 2-12 intact. No deficits to light touch and temperature in face, upper extremities and lower extremities. No motor deficits in the in face, upper extremities and lower extremities. Normoreflexic in the upper and lower extremities. Normal speech. Toes are down- going bilaterally. Gait is normal without ataxia. PSYCHIATRIC: Cooperative. Good eye contact. Appropriate mood and affect. 02/08/19 17:13 - Medical Decision Making 02/08/19 17:13 63-year-old male presents with fever and cough CBC is within normal limits Influenza swabs are negative Chest x-ray does not show any infiltrates consolidations or effusions Impression probable COPD, long-term tobacco use with URI trigger for wheezing 02/08/19 18:57 plan will d/c back to [facility]
[2019-02-08 17:25] LABS: ALBUMIN 3.6 g/dl (3.4-5.0); BILIRUBIN,TOTAL 0.3 mg/dL (0.2-1); BLOOD UREA NITROGEN 10.1 mg/dL (7-18); CALCIUM 8.7 mg/dL (8.5-10.1); CREATININE 0.7 mg/dL (0.55-1.3); POTASSIUM 3.9 mmol/L (3.5-5.1); TOT PROT 6.7 g/dl (6.4-8.2)
[2019-02-08 17:33] VITALS: TEMP 98.5
[2019-02-08 20:13] VITALS: BP 128/93; PULSE 85
--- NOTE | 2019-02-09 09:54 | EKG ---
Test Reason : Blood Pressure : / mmHG Vent. Rate : 070 BPM Atrial Rate : 070 BPM P-R Int : 148 ms QRS Dur : 094 ms QT Int : 388 ms P-R-T Axes : 075 086 072 degrees QTc Int : 419 ms NORMAL SINUS RHYTHM NORMAL ECG WHEN COMPARED WITH ECG OF 03-MAR-2017 22:04, VENT. RATE HAS DECREASED BY 37 BPM Confirmed by KAVYA BENTLEY, NEPTALI ([id number]) on 02/09/2019 9:54:27 AM Referred By: Confirmed By:NEPTALI HOFF MD
== END 2019-02-08 20:39 | disposition home or self-care (01) ==
LOC: JER 15:12
PROC: 3E0F7GC Introduction of Other Therapeutic Substance into Respiratory Tract, Via Natural or Artificial Opening (ICD-10-PCS; principal; 2019-02-08)
DX: R06.2 Wheezing (principal); F17.210 Nicotine dependence, cigarettes, uncomplicated; E11.9 Type 2 diabetes mellitus without complications
CPT/HCPCS: 36415; 71046-TC-FY; 80053; 82962; 85025; 87804; 93005; 93010; 94640; 99282-25

== ENCOUNTER 2022-08-10 14:35 | Inpatient (IN) | payer OTHER ==
[2022-08-10 15:55] VITALS: BP 149/66; PULSE 91; RESP 16; TEMP 97.8; BMI 20.9
[2022-08-10] MEDS ORDERED: MAGNESIUM HYDROX 2400MG/30ML ORAL SUSPENSION 30 ML CUP PO PRN (19:40)
[2022-08-10] MEDS ORDERED: IBUPROFEN 600 MG TABLET (FP) PO PRN (19:40)
[2022-08-10] MEDS ORDERED: BISMUTH SUBSALICYLATE 524 MG/30 ML PO PRN (19:40)
[2022-08-10] MEDS ORDERED: BENZOCAINE/MENTHOL (CHLORASEPTIC ) LOZENGE MM PRN (19:40)
[2022-08-10] MEDS ORDERED: METHOCARBAMOL 500 MG TABLET PO PRN (19:40)
[2022-08-10] MEDS ORDERED: LOPERAMIDE HCL 2 MG CAPSULE PO PRN (19:40)
[2022-08-10] MEDS ORDERED: ACETAMINOPHEN 325 MG TABLET (FP) PO PRN (19:40)
[2022-08-10] MEDS ORDERED: DICYCLOMINE HCL 10 MG CAPSULE PO PRN (19:40)
[2022-08-10] MEDS ORDERED: NALOXONE HCL 0.4 MG/ML VIAL IM PRN (19:40)
[2022-08-10] MEDS ORDERED: NALOXONE HCL (KLOXXADO) 8 MG SPRAY NS PRN (19:40)
[2022-08-10] MEDS ORDERED: ONDANSETRON *ODT* 4 MG TABLET SL PRN (19:40)
[2022-08-10] MEDS ORDERED: POLYETHYLENE GLYCOL (HEALTHYLAX) 3350 17 GM PACKET PO PRN (19:40)
[2022-08-10] MEDS ORDERED: NICOTINE 10 MG CARTRIDGE (INHALER) IH PRN (19:40)
[2022-08-10] MEDS ORDERED: IBUPROFEN 400 MG TABLET (FP) PO PRN (19:40)
[2022-08-10] MEDS ORDERED: MAG HYDROX/AL HYDROX/SIMETH 30 ML UNIT-DOSE CUP PO PRN (19:40)
[2022-08-10] MEDS ORDERED: BENZONATATE 200 MG CAPSULE PO PRN (19:40)
[2022-08-10] MEDS ORDERED: guaiFENesin 600 MG TABLET.ER (FP) PO PRN (19:40)
[2022-08-10] MEDS ORDERED: IBUPROFEN 400 MG TABLET (FP) PO ONE (20:17)
[2022-08-10] MEDS ORDERED: THIAMINE HCL 100 MG TABLET (FP) PO SCH (22:00)
[2022-08-10] MEDS ORDERED: MELATONIN 5 MG TABLETS PO SCH (22:00)
[2022-08-11] MEDS ORDERED: INSULIN SLIDING SCALE (NOVOLOG) 1 VIAL SQ SCH (07:00)
[2022-08-11] MEDS ORDERED: PRENATAL VITAMINS W/ FOLIC ACID TABLET (FP) PO SCH (10:00)
[2022-08-11] MEDS ORDERED: NICOTINE 14 MG/24 HOURS TOPICAL PATCH TD SCH (10:00)
== END 2022-08-11 09:05 | disposition short-term general hospital (02) | DRG 897 ==
LOC: YASAS 14:35 → UNDOADMIN 20:52 → Y6N 20:52 → UNDODISIN 08-11 09:05
PROVIDERS: ADMIT Allergy & Immunology; ATTEND Surgery
PROC: HZ2ZZZZ Detoxification Services for Substance Abuse Treatment (ICD-10-PCS; principal; 2022-08-10)
DX: F10.230 Alcohol dependence with withdrawal, uncomplicated (principal); F20.9 Schizophrenia, unspecified; F32.A Depression, unspecified; F17.210 Nicotine dependence, cigarettes, uncomplicated; I10 Essential (primary) hypertension; E11.9 Type 2 diabetes mellitus without complications; S09.90XA Unspecified injury of head, initial encounter; S69.92XA Unspecified injury of left wrist, hand and finger(s), initial encounter; W18.39XA Other fall on same level, initial encounter; Y92.480 Sidewalk as the place of occurrence of the external cause; Z28.310 Unvaccinated for COVID-19; Z28.9 Immunization not carried out for unspecified reason
CPT/HCPCS: 70450-TC; 87635

== ENCOUNTER 2022-08-10 20:41 | Inpatient (IN) | payer OTHER ==
[2022-08-10 22:16] LABS: BASO % 0.4 % (0-2.0); EOS % 0.2 % (0-4.5); HEMATOCRIT 40.1 % (35.4-49); HEMOGLOBIN 13.8 GM/dL (11.7-16.9); LYMPH % 12.8 % (8-40); MCH 31.2 pg (25.7-33.7); MCHC 34.4 g/dl (32.0-35.9); MEAN CELL VOLUME 90.9 fl (80-96); MEAN PLT VOLUME 7.1 fl (7.5-11.1); MONO % 14.8 % (3.8-10.2); NEUT % 71.8 % (42.8-82.8); PLATELET COUNT 222 10^3/uL (134-434); RBC 4.41 M/mm3 (4.00-5.60); RDW 12.6 % (11.9-15.9); WHITE BLOOD COUNT 7.6 K/mm3 (4.0-10.0)
[2022-08-10 22:36] LABS: POTASSIUM 4.3 mmol/L (3.5-5.1)
[2022-08-10 22:37] LABS: CALCIUM 8.9 mg/dL (8.5-10.1)
[2022-08-10 22:38] LABS: ALBUMIN 3.7 g/dl (3.4-5.0); BLOOD UREA NITROGEN 13.6 mg/dL (7-18)
[2022-08-10 22:41] LABS: CREATININE 0.6 mg/dL (0.55-1.3)
[2022-08-10 22:43] LABS: BILIRUBIN,TOTAL 1.3 mg/dL (0.2-1)
[2022-08-11] MEDS ORDERED: FOLIC ACID INJECTION - 1 MG, THIAMINE HCL 100 MG, MULTIVIT INJECTION ADULT 10 ML in SOD... IVPB ONE (02:59)
[2022-08-11 06:54] LABS: MAGNESIUM 1.8 mg/dL (1.8-2.4)
[2022-08-11 06:58] LABS: PHOSPHOROUS 1.8 mg/dL (2.5-4.9)
[2022-08-11] MEDS: THIAMINE HCL 100 MG TABLET (FP) PO SCH (09:59)
[2022-08-11] MEDS: FOLIC ACID 1 MG TABLET (FP) PO SCH (09:59)
[2022-08-11] MEDS: NICOTINE 14 MG/24 HOURS TOPICAL PATCH TD SCH (10:07)
[2022-08-11] MEDS: ENOXAPARIN NA (PORCINE) 40 MG/0.4 ML DISP.SYRIN SQ SCH (10:07)
[2022-08-11] MEDS ORDERED: POTASSIUM PHOSPHATE 30 MM in DEXTROSE 5%-WATER - 500 ML IVPB ONE (10:30)
[2022-08-11 13:52] LABS: BILIRUBIN,DIRECT 0.4 mg/dL (0.0-0.2)
[2022-08-11] MEDS: LACTATED RINGERS SOLUTION 1,000 ML/1,000 ML INFUS.BAG IV SCH ×2 (18:35→20:31)
[2022-08-12 03:47] LABS: COCAINE, UR NEGATIVE (NEGATIVE); OPIATES, URI NEGATIVE (NEGATIVE); URINE BARBITURATES NEGATIVE (NEGATIVE)
[2022-08-12 03:48] LABS: METHADONE, UR NEGATIVE (NEGATIVE); PHENCYCLIDINE,URINE NEGATIVE (NEGATIVE)
[2022-08-12] MEDS: LACTATED RINGERS SOLUTION 1,000 ML/1,000 ML INFUS.BAG IV SCH ×2 (03:54→12:15)
[2022-08-12 04:04] LABS: URINE AMPHETAMINES NEGATIVE (NEGATIVE); URINE BENZODIAZEPINES NEGATIVE (NEGATIVE)
[2022-08-12 08:24] LABS: INR 1.1 (0.83-1.09); PROTHROMBIN TIME (PATIENT) 12.7 SEC (9.7-13.0)
[2022-08-12 08:27] LABS: ACTIVATED PTT 34.3 SECONDS (25.2-36.5)
[2022-08-12 08:36] LABS: POTASSIUM 3.6 mmol/L (3.5-5.1)
[2022-08-12 08:38] LABS: CALCIUM 8.7 mg/dL (8.5-10.1)
[2022-08-12 08:39] LABS: ALBUMIN 3.1 g/dl (3.4-5.0); MAGNESIUM 1.7 mg/dL (1.8-2.4)
[2022-08-12 08:42] LABS: CREATININE 0.5 mg/dL (0.55-1.3); PHOSPHOROUS 2.5 mg/dL (2.5-4.9)
[2022-08-12 08:44] LABS: TOT PROT 6.3 g/dl (6.4-8.2)
[2022-08-12] MEDS: THIAMINE HCL 100 MG TABLET (FP) PO SCH (09:13)
[2022-08-12] MEDS: FOLIC ACID 1 MG TABLET (FP) PO SCH (09:13)
[2022-08-12] MEDS: NICOTINE 14 MG/24 HOURS TOPICAL PATCH TD SCH (09:16)
[2022-08-12] MEDS: ENOXAPARIN NA (PORCINE) 40 MG/0.4 ML DISP.SYRIN SQ SCH (10:00)
[2022-08-12] MEDS: LORazepam 1 MG TABLET PO PRN ×2 (11:20→20:01)
[2022-08-12] MEDS ORDERED: MAGNESIUM 2GM/50ML STERILE WATER IVPB IVPB ONE (12:42)
[2022-08-13 08:05] LABS: BASO % 0.5 % (0-2.0); EOS % 1.8 % (0-4.5); HEMATOCRIT 41.6 % (35.4-49); HEMOGLOBIN 14.2 GM/dL (11.7-16.9); LYMPH % 27.7 % (8-40); MEAN CELL VOLUME 91.1 fl (80-96); MEAN PLT VOLUME 8.3 fl (7.5-11.1); MONO % 10.6 % (3.8-10.2); NEUT % 59.4 % (42.8-82.8); PLATELET COUNT 214 10^3/uL (134-434); RBC 4.57 M/mm3 (4.00-5.60); RDW 12.6 % (11.9-15.9)
[2022-08-13 08:27] LABS: CALCIUM 8.7 mg/dL (8.5-10.1)
[2022-08-13 08:28] LABS: ALBUMIN 3.3 g/dl (3.4-5.0)
[2022-08-13 08:31] LABS: CREATININE 0.5 mg/dL (0.55-1.3); PHOSPHOROUS 2.8 mg/dL (2.5-4.9)
[2022-08-13 08:32] LABS: BILIRUBIN,TOTAL 0.8 mg/dL (0.2-1); TOT PROT 6.6 g/dl (6.4-8.2)
[2022-08-13] MEDS: THIAMINE HCL 100 MG TABLET (FP) PO SCH (09:59)
[2022-08-13] MEDS: FOLIC ACID 1 MG TABLET (FP) PO SCH (09:59)
[2022-08-13] MEDS: ENOXAPARIN NA (PORCINE) 40 MG/0.4 ML DISP.SYRIN SQ SCH (09:59)
[2022-08-13] MEDS: NICOTINE 14 MG/24 HOURS TOPICAL PATCH TD SCH (09:59)
[2022-08-13] MEDS: LORazepam 1 MG TABLET PO PRN ×2 (14:25→20:41)
[2022-08-14] MEDS: LORazepam 1 MG TABLET PO PRN (00:42)
[2022-08-14 09:55] LABS: POTASSIUM 4.2 mmol/L (3.5-5.1)
[2022-08-14 09:57] LABS: CALCIUM 9.7 mg/dL (8.5-10.1)
[2022-08-14 09:58] LABS: ALBUMIN 3.4 g/dl (3.4-5.0); BLOOD UREA NITROGEN 12.8 mg/dL (7-18)
[2022-08-14 10:01] LABS: CREATININE 0.6 mg/dL (0.55-1.3)
[2022-08-14 10:03] LABS: BILIRUBIN,TOTAL 0.5 mg/dL (0.2-1); TOT PROT 6.9 g/dl (6.4-8.2)
[2022-08-14 10:06] VITALS: BP 134/74; PULSE 94; RESP 20; TEMP 97.8
[2022-08-14] MEDS: FOLIC ACID 1 MG TABLET (FP) PO SCH (10:06)
[2022-08-14] MEDS: ENOXAPARIN NA (PORCINE) 40 MG/0.4 ML DISP.SYRIN SQ SCH (10:06)
[2022-08-14] MEDS: NICOTINE 14 MG/24 HOURS TOPICAL PATCH TD SCH (10:06)
[2022-08-14] MEDS: THIAMINE HCL 100 MG TABLET (FP) PO SCH (10:06)
== END 2022-08-14 13:15 | disposition other institution (70) | DRG 563 ==
LOC: JER 20:41 → JERBED 08-11 02:56 → J7W 08-11 06:47 → OBSVTOIN 08-11 15:05
PROVIDERS: ADMIT Internal Medicine; ATTEND Student in an Organized Health Care Education/Training Program
PROC: HZ2ZZZZ Detoxification Services for Substance Abuse Treatment (ICD-10-PCS; principal; 2022-08-11)
DX: S42.302A Unspecified fracture of shaft of humerus, left arm, initial encounter for closed fracture (principal); S32.591A Other specified fracture of right pubis, initial encounter for closed fracture; S62.009A Unspecified fracture of navicular [scaphoid] bone of unspecified wrist, initial encounter for closed fracture; F10.20 Alcohol dependence, uncomplicated; R94.5 Abnormal results of liver function studies; F20.9 Schizophrenia, unspecified; F12.90 Cannabis use, unspecified, uncomplicated; R74.01 Elevation of levels of liver transaminase levels; E11.9 Type 2 diabetes mellitus without complications; E83.39 Other disorders of phosphorus metabolism; S62.307A Unspecified fracture of fifth metacarpal bone, left hand, initial encounter for closed fracture; F17.210 Nicotine dependence, cigarettes, uncomplicated; W19.XXXA Unspecified fall, initial encounter; Y93.9 Activity, unspecified; Y92.89 Other specified places as the place of occurrence of the external cause; Y99.9 Unspecified external cause status
CPT/HCPCS: 36415; 70450-TC; 70486-TC; 71045-TC-FY; 72125-TC; 72131-TC; 72170-TC-FY; 72192-TC; 73030-TC-LT-FY; 73060-TC-LT-FY; 73090-TC-LT-FY; 73110-TC-LT-FY; 73130-TC-LT-FY; 80053; 80307; 82248; 82607; 82746; 83036; 83735; 84100; 85025; 85610; 85730; 86704; 86803; 87340; 87517; 97116-GP; 97161-GP; 99285-25; G0378

== ENCOUNTER 2022-08-14 14:29 | Inpatient (IN) | payer OTHER ==
[2022-08-14 15:18] VITALS: BMI 18.5
[2022-08-14] MEDS ORDERED: NALOXONE HCL 0.4 MG/ML VIAL IVPUSH PRN (18:17)
[2022-08-14] MEDS ORDERED: AMMONIUM LACTATE 12% LOTION 225 GM BOTTLE TP PRN (18:17)
[2022-08-14] MEDS ORDERED: LOPERAMIDE HCL 2 MG CAPSULE PO PRN (18:17)
[2022-08-14] MEDS ORDERED: IBUPROFEN 600 MG TABLET (FP) PO PRN (18:17)
[2022-08-14] MEDS ORDERED: IBUPROFEN 400 MG TABLET (FP) PO PRN (18:17)
[2022-08-14] MEDS ORDERED: NALOXONE HCL (KLOXXADO) 8 MG SPRAY NS PRN (18:17)
[2022-08-14] MEDS ORDERED: POLYETHYLENE GLYCOL (HEALTHYLAX) 3350 17 GM PACKET PO PRN (18:17)
[2022-08-14] MEDS ORDERED: MAGNESIUM HYDROX 2400MG/30ML ORAL SUSPENSION 30 ML CUP PO PRN (18:17)
[2022-08-14] MEDS ORDERED: MELATONIN 5 MG TABLETS PO PRN (18:17)
[2022-08-14] MEDS ORDERED: ACETAMINOPHEN 325 MG TABLET (FP) PO PRN (18:17)
[2022-08-14] MEDS ORDERED: P-EPHED 60MG/TRIPROLIDI 2.5MG TABLET PO PRN (18:17)
[2022-08-14] MEDS ORDERED: BENZONATATE 200 MG CAPSULE PO PRN (18:17)
[2022-08-14] MEDS ORDERED: NICOTINE 10 MG CARTRIDGE (INHALER) IH PRN (18:17)
[2022-08-14] MEDS ORDERED: guaiFENesin 600 MG TABLET.ER (FP) PO PRN (18:17)
[2022-08-14] MEDS ORDERED: COLLOIDAL OATMEAL 1 BAR EACH TP PRN (18:17)
[2022-08-14] MEDS ORDERED: MAG HYDROX/AL HYDROX/SIMETH 30 ML UNIT-DOSE CUP PO PRN (18:17)
[2022-08-14] MEDS ORDERED: BENZOCAINE/MENTHOL (CHLORASEPTIC ) LOZENGE MM PRN (18:17)
[2022-08-14] MEDS ORDERED: NICOTINE 14 MG/24 HOURS TOPICAL PATCH TD PRN (21:28)
[2022-08-14] MEDS ORDERED: THIAMINE HCL 100 MG TABLET (FP) PO SCH (22:00)
[2022-08-15 06:54] VITALS: BP 111/69; PULSE 98; RESP 18; TEMP 98.7
[2022-08-15] MEDS ORDERED: FOLIC ACID 1 MG TABLET (FP) PO SCH (10:00)
[2022-08-15] MEDS ORDERED: THIAMINE HCL 100 MG TABLET (FP) PO SCH ×2 (10:00)
[2022-08-15] MEDS ORDERED: PRENATAL VITAMINS W/ FOLIC ACID TABLET (FP) PO SCH (10:00)
== END 2022-08-15 16:20 | disposition left against medical advice (07) | DRG 894 ==
LOC: YASAS 14:29 → Y3W 18:57
PROVIDERS: ADMIT Psychiatry & Neurology Pain Medicine; ATTEND Allergy & Immunology
PROC: HZ42ZZZ Group Counseling for Substance Abuse Treatment, Cognitive-Behavioral (ICD-10-PCS; principal; 2022-08-14)
DX: F10.20 Alcohol dependence, uncomplicated (principal); F20.0 Paranoid schizophrenia; F17.210 Nicotine dependence, cigarettes, uncomplicated; I10 Essential (primary) hypertension; E78.5 Hyperlipidemia, unspecified; E11.9 Type 2 diabetes mellitus without complications; S42.212D Unspecified displaced fracture of surgical neck of left humerus, subsequent encounter for fracture with routine healing; S62.397D Other fracture of fifth metacarpal bone, left hand, subsequent encounter for fracture with routine healing; W19.XXXD Unspecified fall, subsequent encounter; Y92.9 Unspecified place or not applicable